=== PATIENT | male | born 1955 | race Caucasian/White ===

== ENCOUNTER → 2016-08-13 | Outpatient (CLI) | payer BC, OTHER | LOC: MW.CHUR 07:57 | PROVIDERS: ATTEND Urology | DX: N40.0 Benign prostatic hyperplasia without lower urinary tract symptoms (principal) | CPT/HCPCS: 36415; 81001; 84153 ==

== ENCOUNTER 2016-10-01 07:44 | Observation (INO) | payer BC, OTHER ==
[2016-09-30 09:19] LABS: CHLORIDE,CL 112 mmol/L (98-110); SODIUM,NA 140 mmol/L (136-146)
[~2016-10-01 07:44] MED LIST: Lactated Ringers 1,000 ML IV SCH; ceFAZolin 2 GM in Premix Bag 1 BAG IV ONE
--- NOTE | 2016-10-01 08:45 | PCM.PREANE ---
Preanesthetic Assessment - Procedure Proposed Procedure: TURP - Anesthesia/Transfusion/Family Hx Anesthesia History: Prior Anesthesia Without Reaction Family History of Anesthesia Reaction: No Transfusion History: No Prior Transfusion(s) Intubation History: Unknown - Review of Systems General: Other (urinary obstruction; obesity) Pulmonary: Other (sleep apnea) Cardiovascular: Other (hypertension - treated) Gastrointestinal: No symptoms Neurological: Other (back pain, chronic) Other: Reports: Depression, Anxiety - Physical Assessment O2 Sat by Pulse Oximetry: 95 Respiratory Rate: 16 Vital Signs: Last Vital Signs Temp 98.1 F 10/01/16 07:58 Pulse 65 10/01/16 07:58 Resp 16 10/01/16 07:58 BP 147/82 H 10/01/16 07:58 Pulse Ox 95 10/01/16 07:58 Height: 5 ft 5 in Weight: 265 lb ASA Class: 3 Mental Status: Alert & Oriented x3 Airway Class: Mallampati = 1 Dentition: Reports: Normal Dentition Thyro-Mental Finger Breadths: 3 Mouth Opening Finger Breadths: 3 ROM/Head Extension: Full Lungs: Clear to auscultation, Normal respiratory effort Cardiovascular: Regular Rate, Regular Rhythm, No Murmurs - Lab Values: Laboratory Last Values WBC 6.91 K/uL (4.0-11.0) 09/30/16 08:45 RBC 5.23 M/uL (4.50-5.90) 09/30/16 08:45 Hgb 15.2 g/dL (13.0-17.0) 09/30/16 08:45 Hct 46.6 % (38.0-50.0) 09/30/16 08:45 MCV 89.1 fL (80.0-98.0) 09/30/16 08:45 MCH 29.1 pg (27.0-32.0) 09/30/16 08:45 MCHC 32.6 g/dL (31.0-37.0) 09/30/16 08:45 RDW Std Deviation 48.9 fl (28.0-62.0) 09/30/16 08:45 RDW Coeff of Komal 15 % (11.0-15.0) 09/30/16 08:45 Plt Count 241 K/uL (150-400) 09/30/16 08:45 MPV 9.90 fL (7.40-12.00) 09/30/16 08:45 Neut % (Auto) 56.1 % (48.0-80.0) 09/30/16 08:45 Lymph % (Auto) 24.9 % (16.0-40.0) 09/30/16 08:45 Barren % (Auto) 14.3 % (0.0-15.0) 09/30/16 08:45 Eos % (Auto) 4.3 % (0.0-7.0) 09/30/16 08:45 Baso % (Auto) 0.4 % (0.0-1.5) 09/30/16 08:45 Neut # (Auto) 3.9 K/uL (1.4-5.7) 09/30/16 08:45 Lymph # (Auto) 1.7 K/uL (0.6-2.4) 09/30/16 08:45 Barren # (Auto) 1.0 K/uL (0.0-0.8) H 09/30/16 08:45 Eos # (Auto) 0.3 K/uL (0.0-0.7) 09/30/16 08:45 Baso # (Auto) 0.0 K/uL (0.0-0.1) 09/30/16 08:45 Nucleated RBC % 0.0 /100WBC 09/30/16 08:45 Nucleated RBCs # 0 K/uL 09/30/16 08:45 Sodium 140 mmol/L (136-146) 09/30/16 08:45 Potassium 4.0 mmol/L (3.5-5.1) 09/30/16 08:45 Chloride 112 mmol/L (98-110) H 09/30/16 08:45 Carbon Dioxide 19 mmol/L (21-31) L 09/30/16 08:45 BUN 14 mg/dL (6.0-23.0) 09/30/16 08:45 Creatinine 1.1 mg/dL (0.6-1.5) 09/30/16 08:45 Est Cr Clr Drug Dosing 60.57 mL/min 09/30/16 08:45 Estimated GFR (MDRD) > 60.0 ml/min 09/30/16 08:45 Glucose 113 mg/dL (60-110) H 09/30/16 08:45 Calcium 8.8 mg/dL (8.8-10.8) 09/30/16 08:45 - Allergies Allergies/Adverse Reactions: Allergies Allergy/AdvReac Type Severity Reaction Status Date / Time No Known Allergies Allergy Verified 06/27/14 11:26 - Blood Blood Available: No Product(s) Available: None - Anesthesia Plan Free Text/Narrative:: Spinal; present for interview and exam. - Acknowledgements Anesthesia Type Planned: Spinal Pt an Appropriate Candidate for the Planned Anesthesia: Yes Alternatives and Risks of Anesthesia Discussed w Pt/Guardian: Yes Pt/Guardian Understands and Agrees with Anesthesia Plan: Yes PreAnesthesia Questionnaire HEENT History: Reports: Other (See Below) Other HEENT History: wears glasses Cardiovascular History: Reports: Hypertension Respiratory History: Reports: Sleep Apnea Other Respiratory History: uses CPAP Gastrointestinal History: Reports: None Genitourinary History: Reports: BPH Other Genitourinary History: recently on antibiotic for prostate Musculoskeletal History: Reports: Arthritis, Back Pain, Chronic, Fracture Other Musculoskeletal History: hx rt arm fx and foot surgery Neurological History: Reports: None Psychiatric History: Reports: Anxiety, Depression Endocrine/Metabolic History: Reports: Obesity/BMI 30+ Hematologic History: Reports: None Immunologic History: Reports: None Oncologic (Cancer) History: Reports: None Dermatologic History: Reports: None - Past Surgical History Head Surgeries/Procedures: Reports: None HEENT Surgical History: Reports: Tonsillectomy Other Cardiovascular Surgeries/Procedures: hx cardiac cath Musculoskeletal Surgical History: Reports: Knee Replacement Other Musculoskeletal Surgeries/Procedures:: hx of wrist surgery x2, hx of Rt TKA, hx foot surgery - SUBSTANCE USE Smoking Status *Q: Former Smoker Tobacco Use Within Last Twelve Months: No Days Per Week of Alcohol Use: 7 Number of Drinks Per Day: 1 Total Drinks Per Week: 7 Recreational Drug Use History: No - HOME MEDS Home Medications: Home Meds Venlafaxine [Effexor] 75 mg PO DAILY 08/16/14 [History] amLODIPine Bes/Olmesartan Med [Bekah 10-40 MG] 1 tab PO DAILY 08/16/14 [History] Montelukast [Singulair] 10 mg PO ASDIRECTED 07/07/15 [History] Fish Oil/Borage/Flax/Om3,6,9#1 [Tolar 3-6-9 Complex Softgel] 1 tab PO DAILY 06/14 [History] Furosemide 20 mg PO ASDIRECTED PRN 09/27/16 [History] Multivitamin [Multivitamins] 1 tab PO DAILY 09/27/16 [History] - CURRENT (IN HOUSE) MEDS Current Meds: Current Medications Lactated Ringer's (Ringers, Lactated) 1,000 mls @ 100 mls/hr IV ASDIRECTED ALBINO Last Admin: 10/01/16 08:20 Dose: 100 mls/hr Discontinued Medications Cefazolin Sodium/Dextrose 2 gm (/ Premix) 50 mls @ 100 mls/hr IV ONCALL ONE Stop: 10/01/16 00:34
[2016-10-01] MEDS ORDERED: Propofol 200 MG/20 ML SDV ONE ×5 (09:14→14:03)
[2016-10-01] MEDS ORDERED: Ondansetron 4 MG/2 ML SDV ONE (09:15)
[2016-10-01] MEDS ORDERED: ePHEDrine 50 MG/ML SDV ONE ×3 (09:15→13:05)
[2016-10-01] MEDS ORDERED: Lidocaine 2% 5 ML SDV ONE ×2 (09:15→09:17)
[2016-10-01] MEDS ORDERED: fentaNYL 100 MCG/2 ML SDV ONE (09:18)
[2016-10-01] MEDS ORDERED: Midazolam 1 MG/ML 2 ML SDV ONE (09:18)
[2016-10-01] MEDS ORDERED: Phenylephrine/Normal Saline 100 MCG/ML 10 ML Syringe ONE ×2 (11:17→13:05)
[2016-10-01] MEDS ORDERED: fentaNYL 100 MCG/2 ML SDV IVPUSH PRN (12:10)
--- NOTE | 2016-10-01 12:55 | PCM.POSTAN ---
POST ANESTHESIA ASSESSMENT - MENTAL STATUS Mental Status: alert, oriented - RESPIRATORY Respiratory Status: respiratory rate WNL, airway patent, O2 saturation stable - CARDIOVASCULAR CV Status: pulse rate WNL, blood pressure stable - GASTROINTESTINAL GI Status: no symptoms - PAIN Pain Score: 0 (Spinal still sensory blocked) - POST OP HYDRATION Hydration Status: adequate & stable
[2016-10-01] MEDS ORDERED: Sodium Chloride 0.9% 0 ML ONE (13:21)
[2016-10-01] MEDS ORDERED: HYDROmorphone 2 MG/ML Syringe IVPUSH ONE (13:25)
[2016-10-01] MEDS: Nitrofurantoin Monohydrate/Macrocrystalline 100 MG Cap PO SCH ×2 (13:52→20:35)
[2016-10-01] MEDS: Belladonna Alkaloids/Opium 16.2-30 MG Supp RECTAL PRN ×2 (14:31→18:31)
[2016-10-01] MEDS ORDERED: HYDROmorphone 1 MG/ML Syringe IVPUSH PRN (14:46)
--- NOTE | 2016-10-01 16:20 | OR ---
SURGEON: Kat Plunkett M.D. DATE OF PROCEDURE: 10/01/2016 PREOPERATIVE DIAGNOSIS: Benign prostatic hyperplasia with obstructive urinary symptoms. POSTOPERATIVE DIAGNOSIS: Benign prostatic hyperplasia with obstructive urinary symptoms. OPERATION: Transurethral resection of the prostate. DESCRIPTION OF PROCEDURE: The patient was given spinal anesthesia, placed in dorsal lithotomy position, prepped and draped in sterile drapes. The cystoscope was introduced in the bladder. It showed a high bladder neck and a partially obstructive prostate. The resectoscope was then placed in. The inside of the bladder was examined when the cystoscope was in and there were no unusual findings in the bladder. Once the resectoscope was in, the resection was started with the floor of the prostatic urethra going on laterally and anteriorly. The bladder neck had to be resected to gain access that was needed. At the end of the resection, all prostatic chips were removed. Both the ureteral orifices were intact. The area of the external sphincter was intact. A 22 two-way Franks catheter with 60 mL in the balloon was left in the bladder, connected to the TUR drip. Estimated blood loss was 200 mL. The patient tolerated the procedure well and was moved to recovery room in good condition. REANNA / ELISA /[id number]
[2016-10-01] MEDS ORDERED: Acetaminophen 325 MG Tab PO PRN (18:53)
[2016-10-01] MEDS: HYDROmorphone 1 MG/ML Syringe IVPUSH PRN (19:28)
[2016-10-02] MEDS: HYDROmorphone 1 MG/ML Syringe IVPUSH PRN (01:32)
[2016-10-02 05:17] LABS: CHLORIDE,CL 108 mmol/L (98-110); SODIUM,NA 140 mmol/L (136-146)
[2016-10-02] MEDS: HYDROmorphone 2 MG/ML Syringe IVPUSH PRN ×3 (08:20→18:22)
[2016-10-02] MEDS: Furosemide 20 MG Tab PO SCH (08:48)
[2016-10-02] MEDS: Nitrofurantoin Monohydrate/Macrocrystalline 100 MG Cap PO SCH ×2 (08:48→20:08)
[2016-10-02] MEDS: Venlafaxine 37.5 MG Tab PO SCH (08:49)
[2016-10-02] MEDS: Olmesartan 20 MG Tab PO SCH (08:50)
[2016-10-02] MEDS: amLODIPine 5 MG Tab PO SCH (08:50)
[2016-10-02] MEDS: Belladonna Alkaloids/Opium 16.2-30 MG Supp RECTAL PRN ×2 (10:34→21:24)
[2016-10-02] MEDS ORDERED: Belladonna Alkaloids/Opium 16.2-30 MG Supp RECTAL ONE (13:26)
[2016-10-02] MEDS ORDERED: Furosemide 20 MG Tab PO ONE (13:36)
[2016-10-03] MEDS: Acetaminophen/HYDROcodone 325-5 MG Tab PO PRN ×3 (01:34→13:45)
[2016-10-03] MEDS: Belladonna Alkaloids/Opium 16.2-30 MG Supp RECTAL PRN (01:34)
--- NOTE | 2016-10-03 03:42 | PCM48HPAN ---
Post Anesthesia Note - EVALUATION WITHIN 48HRS OF ANESTHETIC Vital Signs in Normal Range: Yes Patient Participated in Evaluation: Yes Respiratory Function Stable: Yes Airway Patent: Yes Cardiovascular Function Stable: Yes Hydration Status Stable: Yes Pain Control Satisfactory: Yes (Taking PO and IV) Nausea and Vomiting Control Satisfactory: Yes Mental Status Recovered: Yes
[2016-10-03] MEDS: Olmesartan 20 MG Tab PO SCH (08:38)
[2016-10-03] MEDS: Furosemide 20 MG Tab PO SCH (08:39)
[2016-10-03] MEDS: Venlafaxine 37.5 MG Tab PO SCH (08:39)
[2016-10-03] MEDS: Nitrofurantoin Monohydrate/Macrocrystalline 100 MG Cap PO SCH (08:40)
[2016-10-03] MEDS: amLODIPine 5 MG Tab PO SCH (08:40)
[2016-10-03] MEDS ORDERED: Bisacodyl 10 MG Supp RECTAL ONE (11:11)
[2016-10-03 11:45] VITALS: BP 166/77
== END 2016-10-03 14:00 | disposition home or self-care (01) ==
LOC: MW.SDS 07:44 → MW.MS 13:39 → MW.SDS 19:39
PROVIDERS: ADMIT Urology; ATTEND Urology
DX: N40.1 Benign prostatic hyperplasia with lower urinary tract symptoms (principal); N41.1 Chronic prostatitis; N13.8 Other obstructive and reflux uropathy; F32.9 Major depressive disorder, single episode, unspecified; E29.1 Testicular hypofunction; E66.01 Morbid (severe) obesity due to excess calories; M17.11 Unilateral primary osteoarthritis, right knee; Z96.651 Presence of right artificial knee joint; Z79.899 Other long term (current) drug therapy; Z98.890 Other specified postprocedural states; Z87.891 Personal history of nicotine dependence
CPT/HCPCS: 36415; 52630; 80048; 85025; 88305; 96374; 96376; A9270; C1769; G0378; J1170; J2250; J2405; J3010; J7120; 00914; J2704

== ENCOUNTER 2017-07-07 08:48 | Day surgery (SDC) | payer BC, OTHER ==
[~2017-07-07 08:48] MED LIST changes: +Midazolam 1 MG/ML 2 ML SDV ONE; +Ondansetron 4 MG/2 ML SDV ONE; +Propofol 200 MG/20 ML SDV ONE; -ceFAZolin 2 GM in Premix Bag 1 BAG IV ONE; +fentaNYL 100 MCG/2 ML SDV ONE
--- NOTE | 2017-07-07 09:31 | PCM.PREANE ---
Preanesthetic Assessment - Anesthesia/Transfusion/Family Hx Anesthesia History: Prior Anesthesia Without Reaction Family History of Anesthesia Reaction: No Transfusion History: No Prior Transfusion(s) Intubation History: Unknown - Review of Systems General: No Symptoms Pulmonary: No Symptoms Cardiovascular: No Symptoms Gastrointestinal: No Symptoms Neurological: No Symptoms Other: Reports: None - Physical Assessment NPO Status Date: 07/06/17 O2 Sat by Pulse Oximetry: 97 Respiratory Rate: 16 Vital Signs: Last Vital Signs Temp 36.2 C 07/07/17 09:09 Pulse 59 L 07/07/17 09:09 Resp 16 07/07/17 09:09 BP 134/76 07/07/17 09:09 Pulse Ox 97 07/07/17 09:09 Height: 1.68 m Weight: 111.13 kg ASA Class: 2 Mental Status: Alert & Oriented x3 Airway Class: Mallampati = 1 Dentition: Reports: Normal Dentition ROM/Head Extension: Full Lungs: Clear to Auscultation, Normal Respiratory Effort Cardiovascular: Regular Rate, Regular Rhythm - Allergies Allergies/Adverse Reactions: Allergies Allergy/AdvReac Type Severity Reaction Status Date / Time hydromorphone Allergy Cough Verified 07/03/17 08:53 - Anesthesia Plan Pre-Op Medication Ordered: None - Acknowledgements Anesthesia Type Planned: General Anesthesia Pt an Appropriate Candidate for the Planned Anesthesia: Yes Alternatives and Risks of Anesthesia Discussed w Pt/Guardian: Yes Pt/Guardian Understands and Agrees with Anesthesia Plan: Yes Additional Comments: was awake with light sedation for last colonoscopy (done elsewhere), wants to be deeper asleep for this procedure. PreAnesthesia Questionnaire HEENT History: Reports: Hard of Hearing Other HEENT History: wears glasses Cardiovascular History: Reports: Hypertension Respiratory History: Reports: Sleep Apnea Other Respiratory History: uses CPAP Gastrointestinal History: Reports: Colon Polyp Genitourinary History: Reports: BPH Other Genitourinary History: recently on antibiotic for prostate Musculoskeletal History: Reports: Back Pain, Chronic, Fracture Other Musculoskeletal History: hx of fx right arm Neurological History: Reports: None Psychiatric History: Reports: Depression Endocrine/Metabolic History: Reports: Obesity/BMI 30+ Hematologic History: Reports: None Immunologic History: Reports: None Oncologic (Cancer) History: Reports: None Dermatologic History: Reports: None - Past Surgical History Head Surgeries/Procedures: Reports: None GI Surgical History: Reports: Colonoscopy Male Surgical History: Reports: TURP-Transurethral Resection of Prostate Musculoskeletal Surgical History: Reports: Knee Replacement, Other (See Below) Other Musculoskeletal Surgeries/Procedures:: hx of foot reconstruction, hx of surgery on right wrist- no hardware - SUBSTANCE USE Smoking Status *Q: Former Smoker Tobacco Use Within Last Twelve Months: No Days Per Week of Alcohol Use: 7 Number of Drinks Per Day: 1 Total Drinks Per Week: 7 Recreational Drug Use History: No - HOME MEDS Home Medications: Home Meds Venlafaxine [Effexor] 75 mg PO DAILY 08/16/14 [History] amLODIPine Bes/Olmesartan Med [Bekah 10-40 MG] 1 tab PO DAILY 08/16/14 [History] Montelukast [Singulair] 10 mg PO ASDIRECTED 07/07/15 [History] Furosemide 20 mg PO ASDIRECTED PRN 09/27/16 [History] Multivitamin [Multivitamins] 1 tab PO DAILY 09/27/16 [History] Testosterone Cypionate [Depo-Testosterone] 100 mg IM ASDIRECTED 07/03/17 [ History] - CURRENT (IN HOUSE) MEDS Current Meds: Current Medications Lactated Ringer's (Ringers, Lactated) 1,000 mls @ 125 mls/hr IV ASDIRECTED ALBINO Last Admin: 07/07/17 09:11 Dose: 125 mls/hr Discontinued Medications Fentanyl (Sublimaze) Confirm Administered Dose 100 mcg .ROUTE .STK-MED ONE Stop: 07/07/17 07:46 Lidocaine HCl (Xylocaine-Mpf 1%) Confirm Administered Dose 5 ml .ROUTE .STK-MED ONE Stop: 07/07/17 07:45 Lidocaine HCl (Xylocaine-Mpf 1%) Confirm Administered Dose 5 ml .ROUTE .STK-MED ONE Stop: 07/07/17 08:08 Midazolam HCl (Versed 1 Mg/Ml) Confirm Administered Dose 2 mg .ROUTE .STK-MED ONE Stop: 07/07/17 07:46 Ondansetron HCl (Zofran) Confirm Administered Dose 4 mg .ROUTE .STK-MED ONE Stop: 07/07/17 07:45 Propofol (Diprivan 20 Ml) Confirm Administered Dose 200 mg .ROUTE .STK-MED ONE Stop: 07/07/17 07:46 Propofol (Diprivan 20 Ml) Confirm Administered Dose 200 mg .ROUTE .STK-MED ONE Stop: 07/07/17 08:31
[2017-07-07] MEDS ORDERED: Ondansetron 4 MG Tab.DIS PO PRN (11:44)
--- NOTE | 2017-07-07 11:47 | PCM.OPNOTE ---
- General Post-Op/Procedure Note Date of Surgery/Procedure: 07/07/17 Operative Procedure(s): Colonoscopy with cold cecal polypectomy Pre Op Diagnosis: Personal history of colon polyps Post-Op Diagnosis: Cecal polyp. Sigmoid diverticulosis Anesthesia Technique: MAC (ASA II) Primary Surgeon: Sid Niño Bill Peddler: Dat Badillo Condition: Good Free Text/Narrative:: Dictation [id number] CPT CODE 20714
--- NOTE | 2017-07-07 12:03 | PCM48HPAN ---
Post Anesthesia Note - EVALUATION WITHIN 48HRS OF ANESTHETIC Vital Signs in Normal Range: Yes Patient Participated in Evaluation: Yes Respiratory Function Stable: Yes Airway Patent: Yes Cardiovascular Function Stable: Yes Hydration Status Stable: Yes Pain Control Satisfactory: Yes Nausea and Vomiting Control Satisfactory: Yes Mental Status Recovered: Yes Resp Rate: 16
--- NOTE | 2017-07-07 12:03 | PCM.POSTAN ---
POST ANESTHESIA ASSESSMENT - MENTAL STATUS Mental Status: Alert, Oriented - RESPIRATORY Respiratory Status: Respiratory Rate WNL, Airway Patent, O2 Saturation Stable - CARDIOVASCULAR CV Status: Pulse Rate WNL, Blood Pressure Stable - GASTROINTESTINAL GI Status: No Symptoms - POST OP HYDRATION Hydration Status: Adequate & Stable
[2017-07-07 12:08] VITALS: BP 129/74
--- NOTE | 2017-07-07 13:16 | OR ---
SURGEON: Sid Niño M.D. DATE OF PROCEDURE: 07/07/2017 OPERATION PERFORMED: Colonoscopy with cold cecal polypectomy. NIB FINISHER: Dr. Dat Badillo, PGY3. ANESTHESIA: MAC. ASA CLASSIFICATION: II. PREOPERATIVE DIAGNOSIS: Personal history of colon polyps. POSTOPERATIVE DIAGNOSES: 1. Cecal polyp. 2. Sigmoid diverticulosis. DESCRIPTION OF PROCEDURE: The patient was taken to the endoscopy room and positioned on the endoscopy table in the left lateral decubitus position. Time-out was called for appropriate identification of patient and procedure. Monitored anesthesia care was provided. The colonoscope was inserted into the rectum and advanced without difficulty to the cecum where the colonoscope was retroflexed to visualize the ascending colon from below. The colonoscope was then straightened. There was a small polyp present in the cecum, this was removed with multiple bites of the cold biopsy forceps. The colonoscope was then slowly withdrawn carefully visualizing the remainder of the cecum, ascending colon, hepatic flexure, transverse colon, splenic flexure, and descending colon. No other polyps were encountered. No tumors were identified. There were no angiodysplastic changes or inflammatory bowel disease. A few small scattered diverticula are noted in the sigmoid colon. The colonoscope was withdrawn to the rectum and retroflexed to visualize the anal orifice from above. Again, no tumors or polyps were seen in the rectum, and there were no acute hemorrhoidal changes. The colonoscope was then straightened, the rectum aspirated, and the colonoscope removed. The patient tolerated the procedure well and was taken to recovery room in stable condition. GEGE / ELISA /[id number]
== END 2017-07-07 12:30 | disposition home or self-care (01) ==
LOC: MW.SDS 08:48
PROVIDERS: ATTEND Surgery
DX: K57.30 Diverticulosis of large intestine without perforation or abscess without bleeding (principal); K63.89 Other specified diseases of intestine; F32.9 Major depressive disorder, single episode, unspecified; I10 Essential (primary) hypertension; R79.89 Other specified abnormal findings of blood chemistry; E66.01 Morbid (severe) obesity due to excess calories; N41.9 Inflammatory disease of prostate, unspecified; J31.0 Chronic rhinitis; L08.9 Local infection of the skin and subcutaneous tissue, unspecified; N40.1 Benign prostatic hyperplasia with lower urinary tract symptoms; R35.0 Frequency of micturition; G47.30 Sleep apnea, unspecified; Z88.5 Allergy status to narcotic agent; Z86.010 Personal history of colon polyps; Z79.899 Other long term (current) drug therapy; Z87.891 Personal history of nicotine dependence; Z68.39 Body mass index [BMI] 39.0-39.9, adult; Z99.89 Dependence on other enabling machines and devices
CPT/HCPCS: 45380; J2250; J2405; J3010; J7120; 88305; J2704

== ENCOUNTER 2019-05-21 13:46 | Inpatient (IN) | payer OTHER, MEDICARE ==
[2019-05-21] MEDS ORDERED: Sodium Chloride 0.9% 10 ML Syringe FLUSH PRN (13:49)
[2019-05-21] MEDS ORDERED: Sodium Chloride 0.9% 10 ML SDV IV PRN (13:49)
[2019-05-21] MEDS ORDERED: Sodium Chloride 0.9% 2.5 ML Syringe FLUSH PRN (13:49)
--- NOTE | 2019-05-21 14:05 | EDM.PDOC ---
ED HPI GENERAL MEDICAL PROBLEM - General Chief Complaint: Neuro Symptoms/Deficits Stated Complaint: VISION LOSS Time Seen by Provider: 05/21/19 13:58 - History of Present Illness INITIAL COMMENTS - FREE TEXT/NARRATIVE: Transient left lateral visual loss onset 1:05 pm lasting 15 to 20 minutes, there is now almost fully resolved associated with mild left frontal headache. Denies any facial numbness or peripheral weakness or numbness. History of hypertension high cholesterol denies any history of CVA or cardiac disease. Patient ambulated with steady gait to the emergency department from across the street. Patient is a practicing physician. Currently symptoms is resolved with remanence of mild left frontal headache. Nausea vomiting abdominal pain chest pain shortness of breath. Denies any dizziness or syncopal episode. Has any use of blood thinner or aspirin. Headache Pain Score (Numeric/FACES): 2 - Related Data Allergies Allergy/AdvReac Type Severity Reaction Status Date / Time hydromorphone Allergy Hives Verified 05/21/19 13:58 Home Meds: Home Meds Venlafaxine [Effexor] 75 mg PO DAILY 08/16/14 [History] amLODIPine Bes/Olmesartan Med [Bekah 10-40 MG] 1 tab PO DAILY 08/16/14 [History] Montelukast [Singulair] 10 mg PO ASDIRECTED 07/07/15 [History] Furosemide 20 mg PO ASDIRECTED PRN 09/27/16 [History] Multivitamin [Multivitamins] 1 tab PO DAILY 09/27/16 [History] Testosterone Cypionate [Depo-Testosterone] 100 mg IM ASDIRECTED 07/03/17 [ History] Past Medical History HEENT History: Reports: Hard of Hearing Other HEENT History: wears glasses Cardiovascular History: Reports: Hypertension Respiratory History: Reports: Sleep Apnea Other Respiratory History: uses CPAP Gastrointestinal History: Reports: Colon Polyp Genitourinary History: Reports: BPH Other Genitourinary History: recently on antibiotic for prostate Musculoskeletal History: Reports: Back Pain, Chronic, Fracture Other Musculoskeletal History: hx of fx right arm Neurological History: Reports: None Psychiatric History: Reports: Depression Endocrine/Metabolic History: Reports: Obesity/BMI 30+ Hematologic History: Reports: None Immunologic History: Reports: None Oncologic (Cancer) History: Reports: None Dermatologic History: Reports: None - Past Surgical History Head Surgeries/Procedures: Reports: None HEENT Surgical History: Reports: Tonsillectomy Other Cardiovascular Surgeries/Procedures: hx cardiac cath GI Surgical History: Reports: Colonoscopy Male Surgical History: Reports: TURP-Transurethral Resection of Prostate Musculoskeletal Surgical History: Reports: Knee Replacement, Other (See Below) Other Musculoskeletal Surgeries/Procedures:: hx of foot reconstruction, hx of surgery on right wrist- no hardware Social & Family History - Family History GI: Reports: Cirrhosis ED ROS GENERAL - Review of Systems Review Of Systems: See Below Constitutional: Reports: No Symptoms HEENT: Reports: Vision Change Respiratory: Reports: No Symptoms Cardiovascular: Reports: No Symptoms Endocrine: Reports: No Symptoms GI/Abdominal: Reports: No Symptoms Neurological: Reports: Headache Psychiatric: Reports: No Symptoms Immunologic: Reports: No Symptoms ED EXAM, NEURO - Physical Exam Exam: See Below Exam Limited By: No Limitations General Appearance: Alert, WD/WN, No Apparent Distress Eye Exam: Bilateral Eye: EOMI, Normal Inspection, PERRL Ears: Normal External Exam, Normal Canal, Hearing Grossly Normal, Normal TMs Nose: Normal Inspection, Normal Mucosa, No Blood Throat/Mouth: Normal Inspection, Normal Lips, Normal Teeth, Normal Gums, Normal Oropharynx, Normal Voice, No Airway Compromise Respiratory/Chest: No Respiratory Distress, Lungs Clear, Normal Breath Sounds, No Accessory Muscle Use, Chest Non-Tender Cardiovascular: Normal Peripheral Pulses, Regular Rate, Rhythm, No Edema, No Gallop, No JVD, No Murmur, No Rub GI/Abdominal: Normal Bowel Sounds, Soft, Non-Tender, No Organomegaly, No Distention, No Abnormal Bruit, No Mass Neurological: Alert, Normal Mood/Affect, Normal Dorsiflexion, CN II-XII Intact, Normal Plantar Flexion, Normal Gait, Normal Reflexes, No Motor/Sensory Deficits , Oriented x 3, Other (NIH stroke scale 0) Back Exam: Normal Inspection, Full Range of Motion, NT Extremities: Normal Inspection, Normal Range of Motion, Non-Tender, No Pedal Edema, Normal Capillary Refill Psychiatric: Normal Affect, Normal Mood Skin Exam: Warm, Dry, Intact, Normal Color, No Rash EKG INTERPRETATION EKG Date: 05/21/19 Rhythm: NSR [place]: Normal P-Wave: Present QRS: Normal ST-T: Normal Course - Vital Signs Last Recorded V/S: Last Vital Signs Temp 97.2 F 05/21/19 13:58 Pulse 77 05/21/19 13:58 Resp 16 05/21/19 13:58 BP 153/88 H 05/21/19 13:58 Pulse Ox 96 05/21/19 13:58 - Orders/Labs/Meds Orders: Active Orders 24 hr Category Date Time Status Assess Neurological Status [RC] ASDIRECTED Care 05/21/19 13:49 Active Bedrest [RC] ASDIRECTED Care 05/21/19 13:49 Active Cardiac Monitoring [RC] . DIRECTED Care 05/21/19 13:49 Active EKG Documentation Completion [RC] STAT Care 05/21/19 13:49 Active Height and Weight [RC] UPON Care 05/21/19 13:49 Active Initiate Acute Stroke Protocol [RC] STAT Care 05/21/19 13:49 Active NIH Stroke Scale [RC] ASDIRECTED Care 05/21/19 13:49 Active Nursing Bedside Swallow Screen [RC] ASDIRECTED Care 05/21/19 13:49 Active Oxygen Therapy [RC] ASDIRECTED Care 05/21/19 13:49 Active Stroke Education, General [RC] Click to Edit Care 05/21/19 13:49 Active Vital Signs [RC] Q15M Care 05/21/19 13:49 Active Chest 1V Frontal [CR] Stat Exams 05/21/19 13:49 Ordered COMPREHENSIVE METABOLIC PN,CMP [CHEM] Stat Lab 05/21/19 13:55 Received TROPONIN I [CHEM] Stat Lab 05/21/19 13:55 Received TSH [CHEM] Stat Lab 05/21/19 13:55 Received UA RFX MAN AND CULT IF INDIC [URIN] Stat Lab 05/21/19 13:49 Ordered Sodium Chloride 0.9% [Normal Saline] Med 05/21/19 13:49 Active 10 ml IV ASDIRECTED PRN Sodium Chloride 0.9% [Saline Flush] Med 05/21/19 13:49 Active 10 ml FLUSH ASDIRECTED PRN Sodium Chloride 0.9% [Saline Flush] Med 05/21/19 13:49 Active 2.5 ml FLUSH ASDIRECTED PRN Peripheral IV Insertion Adult [OM.PC] Stat Oth 05/21/19 13:49 Ordered Peripheral IV Insertion Adult [OM.PC] Stat Oth 05/21/19 13:49 Ordered Medication Orders Sodium Chloride (Saline Flush) 10 ml FLUSH ASDIRECTED PRN PRN Reason: Keep Vein Open Sodium Chloride (Saline Flush) 2.5 ml FLUSH ASDIRECTED PRN PRN Reason: Keep Vein Open Sodium Chloride (Normal Saline) 10 ml IV ASDIRECTED PRN PRN Reason: IV Use Labs: Laboratory Tests 05/21/19 05/21/19 Range/Units 13:55 13:55 WBC 7.80 (4.0-11.0) K/uL RBC 5.39 (4.50-5.90) M/uL Hgb 16.0 (13.0-17.0) g/dL Hct 46.4 (38.0-50.0) % MCV 86.1 (80.0-98.0) fL MCH 29.7 (27.0-32.0) pg MCHC 34.5 (31.0-37.0) g/dL RDW Std Deviation 43.7 (28.0-62.0) fl RDW Coeff of Komal 14 (11.0-15.0) % Plt Count 246 (150-400) K/uL MPV 10.40 (7.40-12.00) fL Neut % (Auto) 57.0 (48.0-80.0) % Lymph % (Auto) 26.3 (16.0-40.0) % [place] % (Auto) 12.1 (0.0-15.0) % Eos % (Auto) 4.2 (0.0-7.0) % Baso % (Auto) 0.4 (0.0-1.5) % Neut # (Auto) 4.5 (1.4-5.7) K/uL Lymph # (Auto) 2.1 (0.6-2.4) K/uL [place] # (Auto) 0.9 H (0.0-0.8) K/uL Eos # (Auto) 0.3 (0.0-0.7) K/uL Baso # (Auto) 0.0 (0.0-0.1) K/uL Nucleated RBC % 0.0 /100WBC Nucleated RBCs # 0 K/uL INR 1.04 APTT 27.3 (18.6-31.3) SEC Meds: Medications Generic Name Dose Route Start Last Admin Trade Name Freq PRN Reason Stop Dose Admin Sodium Chloride 10 ml 05/21/19 13:49 Saline Flush FLUSH ASDIRECTED PRN Keep Vein Open Sodium Chloride 2.5 ml 05/21/19 13:49 Saline Flush FLUSH ASDIRECTED PRN Keep Vein Open Sodium Chloride 10 ml 05/21/19 13:49 Normal Saline IV ASDIRECTED PRN IV Use - Radiology Interpretation Free Text/Narrative:: Paralytics was not consider because patient symptoms resolved and NIH stroke scale was 0 Departure - Departure Time of Disposition: 14:31 Disposition: Admitted As Inpatient 65 Condition: Good Clinical Impression: Transient ischemic attack (TIA) - Discharge Information Referrals: Ross Villalobos [facility] [Primary Care Provider] - Forms: ED Department Discharge Sepsis Event Note - Focused Exam Vital Signs: Vital Signs Temp Pulse Resp BP Pulse Ox 05/21/19 13:58 97.2 F 77 16 153/88 H 96 Date Exam was Performed: 05/21/19 Time Exam was Performed: 14:30
--- NOTE | 2019-05-21 14:27 | CT ---
Head CT Technique: Multiple axial sections through the brain were obtained. Intravenous contrast was not utilized. Comparison: No prior intracranial imaging is available. Findings: Ventricles along with basal cisterns and sulci over the convexities appear within normal limits for the patient's age. No abnormal parenchymal densities are seen. No evidence of intracranial hemorrhage. No midline shift or mass effect is seen. Bone window settings were reviewed which shows mild mucosal thickening within the ethmoid and left maxillary sinus. Mastoid sinuses appear clear. No acute calvarial abnormality is seen. Impression: 1. Sinus findings most likely due to chronic sinusitis. 2. No acute intracranial abnormality is appreciated. Diagnostic code #2 Study was dictated in [place] Standard Time
[2019-05-21] MEDS ORDERED: Aspirin 81 MG Tab.Chew PO ONE (14:30)
[2019-05-21 14:51] LABS: CHLORIDE,CL 103 mmol/L (98-107); GLUCOSE RANDOM 105 mg/dL (74-106); POTASSIUM,K 3.8 mmol/L (3.5-5.1); SODIUM,NA 141 mmol/L (136-148)
--- NOTE | 2019-05-21 14:53 | CR ---
Chest: Portable view of the chest was obtained. Comparison: No prior chest imaging. Slight is density is noted within the left base most likely due to atelectasis although difficult to exclude a nodule. Lungs otherwise are clear. Heart size and mediastinum are normal. Impression: 1. Questionable nodular density off the left cardiac apex. This is most likely due to atelectasis although noncontrast chest CT suggested to completely exclude the possibility of pulmonary mass. 2. Nothing acute is otherwise seen on portable chest x-ray. Diagnostic code #9 Study was dictated in [place] Standard Time
[2019-05-21] MEDS ORDERED: Ondansetron 4 MG/2 ML SDV IVPUSH PRN (15:07)
[2019-05-21 15:14] LABS: BLOOD UREA NITROGEN,BUN 26 mg/dL (7.0-18.0)
--- NOTE | 2019-05-21 15:44 | PCM.CONS ---
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 He was finishing up with the patient at 1:05 PM when he developed left-sided visual loss in both eyes, homonymous hemianopsia. This lasted about 15 minutes was followed by a posterior right-sided headache. He notes the left visual field is not quite as clear as the right side, now which is about an hour and 15 minutes after symptom onset. He denies any numbness or tingling or weakness on one side of the body other. No chest pain or shortness of breath. He's had fatigue in the last 2 weeks as well as intermittent vertigo lasting a few seconds. Remote tobacco use, quit in the 80s. No family history of stroke or heart attack. No personal history of coronary artery disease or peripheral artery disease Headache Pain Score (Numeric/FACES): 2 - Related Data Allergies/Adverse Reactions: Allergies Allergy/AdvReac Type Severity Reaction Status Date / Time hydromorphone Allergy Hives Verified 05/21/19 13:58 Home Medications: Home Meds Venlafaxine [Effexor] 75 mg PO DAILY 08/16/14 [History] amLODIPine Bes/Olmesartan Med [Bekah 10-40 MG] 1 tab PO DAILY 08/16/14 [History] Montelukast [Singulair] 10 mg PO ASDIRECTED 07/07/15 [History] Furosemide 20 mg PO ASDIRECTED PRN 09/27/16 [History] Multivitamin [Multivitamins] 1 tab PO DAILY 09/27/16 [History] Testosterone Cypionate [Depo-Testosterone] 100 mg IM ASDIRECTED 07/03/17 [ History] Past Medical History HEENT History: Reports: Hard of Hearing Other HEENT History: wears glasses Cardiovascular History: Reports: Hypertension Respiratory History: Reports: Sleep Apnea Other Respiratory History: uses CPAP Gastrointestinal History: Reports: Colon Polyp Genitourinary History: Reports: BPH Other Genitourinary History: recently on antibiotic for prostate Musculoskeletal History: Reports: Back Pain, Chronic, Fracture Other Musculoskeletal History: hx of fx right arm Neurological History: Reports: None Psychiatric History: Reports: Depression Endocrine/Metabolic History: Reports: Obesity/BMI 30+ Hematologic History: Reports: None Immunologic History: Reports: None Oncologic (Cancer) History: Reports: None Dermatologic History: Reports: None - Past Surgical History Head Surgeries/Procedures: Reports: None HEENT Surgical History: Reports: Tonsillectomy Other Cardiovascular Surgeries/Procedures: hx cardiac cath GI Surgical History: Reports: Colonoscopy Male Surgical History: Reports: TURP-Transurethral Resection of Prostate Musculoskeletal Surgical History: Reports: Knee Replacement, Other (See Below) Other Musculoskeletal Surgeries/Procedures:: hx of foot reconstruction, hx of surgery on right wrist- no hardware Social & Family History - Family History Family Medical History: Noncontributory GI: Reports: Cirrhosis - Tobacco Use Smoking Status *Q: Never Smoker - Recreational Drug Use Recreational Drug Use: No H&P Review of Systems - Review of Systems: Review Of Systems: Comprehensive ROS is negative, except as noted in HPI. Exam - Exam Exam: See Below - Vital Signs Vital Signs: Last Vital Signs Temp 36.2 C 05/21/19 13:58 Pulse 77 05/21/19 13:58 Resp 16 05/21/19 13:58 BP 153/88 H 05/21/19 13:58 Pulse Ox 96 05/21/19 13:58 Weight: 108 kg - Exam Physical Exam Comments:: Constitutional: No acute distress Psychiatric: Mood/Affect: normal/appropriate Neurological: Mental Status: General: Normal activity, good hygiene, appropriate appearance. Level of consciousness: Awake, alert. Orientation: Oriented to person, place, time and situation. Concentration/Attention Span: Normal. Comprehension/Praxis: Able to perform a three step command. Fund of Knowledge/memory: Adequate recent and remote recall. Language: Fluent and articulate without evidence of aphasia or dysarthria. Thought Content: Normal. Insight/Judgement: Normal. Cranial Nerves: Pupils equally round and reactive to light. Visual cadet full to confrontation. Gaze conjugate, EOMI. Sensation intact and symmetric to light touch. Facial strength is full and symmetric. Palate elevates symmetrically. Normal shrug bilaterally. Tongue protrudes midline Motor: Normal tone in all groups. No drift. Power is 5/5 throughout proximal and distal muscles. Sensation: Sensation is intact to pinprick, vibratory sense and proprioception. Deep tendon reflexes: Normoactive throughout. Plantar responses are flexor bilaterally. Coordination: Finger to nose, heel to coto and rapid alternating movements are intact. Gait: Impaired tandem Eyes: non icteric, Mouth: moist mucus membranes Cardiovascular: RRR Respiratory: clear lungs - Patient Data Lab Results Last 24 hrs: Laboratory Results - last 24 hr 05/21/19 05/21/19 05/21/19 Range/Units 13:55 13:55 13:55 WBC 7.80 (4.0-11.0) K/uL RBC 5.39 (4.50-5.90) M/uL Hgb 16.0 (13.0-17.0) g/dL Hct 46.4 (38.0-50.0) % MCV 86.1 (80.0-98.0) fL MCH 29.7 (27.0-32.0) pg MCHC 34.5 (31.0-37.0) g/dL RDW Std Deviation 43.7 (28.0-62.0) fl RDW Coeff of Komal 14 (11.0-15.0) % Plt Count 246 (150-400) K/uL MPV 10.40 (7.40-12.00) fL Neut % (Auto) 57.0 (48.0-80.0) % Lymph % (Auto) 26.3 (16.0-40.0) % [place] % (Auto) 12.1 (0.0-15.0) % Eos % (Auto) 4.2 (0.0-7.0) % Baso % (Auto) 0.4 (0.0-1.5) % Neut # (Auto) 4.5 (1.4-5.7) K/uL Lymph # (Auto) 2.1 (0.6-2.4) K/uL [place] # (Auto) 0.9 H (0.0-0.8) K/uL Eos # (Auto) 0.3 (0.0-0.7) K/uL Baso # (Auto) 0.0 (0.0-0.1) K/uL Nucleated RBC % 0.0 /100WBC Nucleated RBCs # 0 K/uL INR 1.04 APTT 27.3 (18.6-31.3) SEC Sodium 141 (136-148) mmol/L Potassium 3.8 (3.5-5.1) mmol/L Chloride 103 (98-107) mmol/L Carbon Dioxide 24.0 (21.0-32.0) mmol/L BUN 26 H (7.0-18.0) mg/dL Creatinine 1.2 (0.8-1.3) mg/dL Est Cr Clr Drug Dosing 53.39 mL/min Estimated GFR (MDRD) > 60.0 ml/min Glucose 105 (74-106) mg/dL Calcium 9.7 (8.5-10.1) mg/dL Total Bilirubin 0.5 (0.2-1.0) mg/dL AST 48 H (15-37) IU/L ALT 72 H (14-63) IU/L Alkaline Phosphatase 52 (46-116) U/L Troponin I < 0.050 (0.000-0.056) ng/mL Total Protein 7.8 (6.4-8.2) g/dL Albumin 4.1 (3.4-5.0) g/dL Globulin 3.7 (2.6-4.0) g/dL Albumin/Globulin Ratio 1.1 (0.9-1.6) TSH 3rd Generation 1.07 (0.36-3.74) uIU/mL Result Diagrams: 05/21/19 13:55 05/21/19 13:55 Imaging Impressions Last 24 hrs: CT brain normal Sepsis Event Note - Evaluation Sepsis Screening Result: No Definite Risk - Focused Exam Vital Signs: Vital Signs Temp Pulse Resp BP Pulse Ox 05/21/19 13:58 36.2 C 77 16 153/88 H 96 Date Exam was Performed: 05/21/19 Time Exam was Performed: 15:41 Consult PN Assessment/Plan Procedures: Procedures ASSAY OF CREATININE (08/17/14) ASSAY OF FREE TESTOSTERONE (03/03/17) ASSAY OF FREE THYROXINE (03/27/16) ASSAY OF MAGNESIUM (03/27/16) ASSAY OF PSA TOTAL (06/24/18) ASSAY OF TOTAL TESTOSTERONE (03/03/17) ASSAY OF UREA NITROGEN (08/17/14) ASSAY THYROID STIM HORMONE (03/27/16) CARDIOVASCULAR STRESS TEST (05/13/16) CHEST X-RAY 2VW FRONTAL&LATL (06/21/15) CO/MEMBANE DIFFUSE CAPACITY (05/08/16) COLONOSCOPY AND BIOPSY (07/07/17) COMPLETE CBC W/AUTO DIFF WBC (10/01/16) COMPREHEN METABOLIC PANEL (03/27/16) CT ABD & PELV 1/> REGNS (08/17/14) CT ABD & PELV W/CONTRAST (07/01/18) ELECTROCARDIOGRAM TRACING (06/21/15) EMERGENCY DEPT VISIT (08/16/14) EVALUATION OF WHEEZING (05/08/16) HT MUSCLE IMAGE SPECT SING (05/13/16) HYDRATE IV INFUSION ADD-ON (08/16/14) LIPID PANEL (03/27/16) METABOLIC PANEL TOTAL CA (06/24/18) MRI JNT OF LWR EXTRE W/O DYE (06/02/15) PROTHROMBIN TIME (06/22/15) PT EVALUATION (07/21/15) PULM FUNCTION TEST BY GAS (05/08/16) REMOVE PROSTATE REGROWTH (10/01/16) ROUTINE VENIPUNCTURE (06/24/18) TB TEST CELL IMMUN MEASURE (04/18/17) THER/PROPH/DIAG INJ IV PUSH (10/01/16) THERAPEUTIC EXERCISES (08/07/15) TISSUE EXAM BY PATHOLOGIST (10/01/16) TTE W/DOPPLER COMPLETE (03/29/16) TX/PRO/DX INJ NEW DRUG ADDON (08/16/14) TX/PRO/DX INJ SAME DRUG TAR HEATER (10/01/16) URINALYSIS AUTO W/SCOPE (06/24/18) US COMPL JOINT R-T W/IMG (05/03/16) VASOPNEUMATIC DEVICE THERAPY (08/07/15) X-RAY EXAM KNEE 4 OR MORE (03/28/15) X-RAY EXAM OF FOREARM (04/18/16) X-RAY EXAM OF HAND (04/18/16) X-RAY EXAM OF KNEE 3 (07/20/15) (1) Transient ischemic attack (TIA) SNOMED Code(s): 175980981 Code(s): G45.9 - TRANSIENT CEREBRAL ISCHEMIC ATTACK, UNSPECIFIED Current Visit: Yes Assessment:: Transient left homonymous hemianopsia: Likely TIA Recommendations MRI brain w and without contrast MRA head w/o contrast MRA neck with contrast Telemetry permissive HTN ASA 81 mg Statin TTE Lipids, A1c Problem List Initiated/Reviewed/Updated: Yes
[2019-05-21 15:50] LABS: HEMOGLOBIN A1C 5.9 % (4.5-6.2)
[2019-05-21] MEDS ORDERED: Gadobenate Dimeglumine 529 MG/ML 20 ML SDV IVPUSH STA (16:15)
--- NOTE | 2019-05-21 16:28 | PCM.HP.2 ---
H&P History of Present Illness - General Date of Service: 05/21/19 Admit Problem/Dx: Admission Diagnosis/Problem Admission Diagnosis/Problem TIA, Transient ischemic attack Source of Information: Patient History Limitations: Reports: No Limitations - History of Present Illness Initial Comments - Free Text/Narative: This 64 year old male with pmh of HTN, dyslipidemia, PAUL with CPAP presented to the ED with complaints of left lateral vision loss that started around 1:05 pm this afternoon, lasted approximately 15-20 minutes then noted a frontal headache. No other neurological deficits. He denies chest pain sob or palpitations. He denies acute neck pain, has been dealing with chronic neck pain and is being worked up for stenosis. He denies recently illness or fevers. No cough or sinus congestion. He denies abdominal pain. He denies tobacco use, occasional alcohol use and no recreational drug use. No history of CAD or CVA and no DM. Does have history of Migraines, but not for at least 20 years. In the ED labwork WNL. Head CT obtained which showed chronic sinusitis, no hemorrhage or mass. BP 153/88 HR 70s. CXR negative. EKG SR no arrhythmia noted. Dr Serrano consulted in the ED, recommended admission and MRI. Headache Pain Score (Numeric/FACES): 2 - Related Data Allergies/Adverse Reactions: Allergies Allergy/AdvReac Type Severity Reaction Status Date / Time hydromorphone Allergy Hives Verified 05/21/19 13:58 Home Medications: Home Meds Venlafaxine [Effexor] 75 mg PO DAILY 08/16/14 [History] amLODIPine Bes/Olmesartan Med [Bekah 10-40 MG] 1 tab PO DAILY 08/16/14 [History] Montelukast [Singulair] 10 mg PO ASDIRECTED 07/07/15 [History] Furosemide 20 mg PO ASDIRECTED PRN 09/27/16 [History] Multivitamin [Multivitamins] 1 tab PO DAILY 09/27/16 [History] Testosterone Cypionate [Depo-Testosterone] 100 mg IM ASDIRECTED 07/03/17 [ History] Past Medical History HEENT History: Reports: Hard of Hearing Other HEENT History: wears glasses Cardiovascular History: Reports: Hypertension. Denies: Afib, Blood Clots/VTE/ DVT, CAD Respiratory History: Reports: Sleep Apnea Other Respiratory History: uses CPAP Gastrointestinal History: Reports: Colon Polyp. Denies: GERD Genitourinary History: Reports: BPH Other Genitourinary History: recently on antibiotic for prostate Musculoskeletal History: Reports: Back Pain, Chronic, Fracture Other Musculoskeletal History: hx of fx right arm Neurological History: Reports: None Psychiatric History: Reports: Depression Endocrine/Metabolic History: Reports: Obesity/BMI 30+ Hematologic History: Reports: None Immunologic History: Reports: None Oncologic (Cancer) History: Reports: None Dermatologic History: Reports: None - Past Surgical History Head Surgeries/Procedures: Reports: None HEENT Surgical History: Reports: Tonsillectomy Other Cardiovascular Surgeries/Procedures: hx cardiac cath GI Surgical History: Reports: Colonoscopy Male Surgical History: Reports: TURP-Transurethral Resection of Prostate Musculoskeletal Surgical History: Reports: Knee Replacement, Other (See Below) Other Musculoskeletal Surgeries/Procedures:: hx of foot reconstruction, hx of surgery on right wrist- no hardware Social & Family History - Family History Family Medical History: Noncontributory GI: Reports: Cirrhosis - Tobacco Use Smoking Status *Q: Never Smoker - Alcohol Use Alcohol Use Frequency: Socially - Recreational Drug Use Recreational Drug Use: No - Living Situation & Occupation Living situation: Reports: Occupation: Employed H&P Review of Systems - Review of Systems: Review Of Systems: See Below General: Reports: No Symptoms. Denies: Fever, Chills, Malaise HEENT: Reports: Visual Changes (left lateral vision isn't as crips, but has improved since arriving.) Pulmonary: Reports: No Symptoms. Denies: Shortness of Breath Cardiovascular: Reports: No Symptoms. Denies: Chest Pain Gastrointestinal: Reports: Nausea. Denies: Abdominal Pain, Vomiting Genitourinary: Reports: No Symptoms. Denies: Dysuria, Frequency, Burning Skin: Reports: No Symptoms Psychiatric: Reports: No Symptoms Neurological: Reports: No Symptoms Hematologic/Lymphatic: Reports: No Symptoms Immunologic: Reports: No Symptoms Exam - Exam Exam: See Below - Vital Signs Vital Signs: Last Vital Signs Temp 97.2 F 05/21/19 13:58 Pulse 77 05/21/19 13:58 Resp 16 05/21/19 13:58 BP 153/88 H 05/21/19 13:58 Pulse Ox 96 05/21/19 13:58 Weight: 108 kg - Exam General: Alert, Oriented, Cooperative HEENT: Mucosa Moist & [place], Posterior Pharynx Clear, Pupils Equal Neck: Supple, Trachea Midline Lungs: Clear to Auscultation, Normal Respiratory Effort Cardiovascular: Regular Rate, Regular Rhythm GI/Abdominal Exam: Normal Bowel Sounds, Soft, Non-Tender Extremities: Normal Inspection, Normal Range of Motion, Non-Tender, No Pedal Edema Neuro Extensive - Mental Status: Alert, Oriented x3 Neuro Extensive - Motor, Sensory, Reflexes: CN II-XII Intact Psychiatric: Alert, Normal Affect, Normal Mood - Patient Data Lab Results Last 24 hrs: Laboratory Results - last 24 hr 05/21/19 05/21/19 05/21/19 Range/Units 13:55 13:55 13:55 WBC 7.80 (4.0-11.0) K/uL RBC 5.39 (4.50-5.90) M/uL Hgb 16.0 (13.0-17.0) g/dL Hct 46.4 (38.0-50.0) % MCV 86.1 (80.0-98.0) fL MCH 29.7 (27.0-32.0) pg MCHC 34.5 (31.0-37.0) g/dL RDW Std Deviation 43.7 (28.0-62.0) fl RDW Coeff of Komal 14 (11.0-15.0) % Plt Count 246 (150-400) K/uL MPV 10.40 (7.40-12.00) fL Neut % (Auto) 57.0 (48.0-80.0) % Lymph % (Auto) 26.3 (16.0-40.0) % [place] % (Auto) 12.1 (0.0-15.0) % Eos % (Auto) 4.2 (0.0-7.0) % Baso % (Auto) 0.4 (0.0-1.5) % Neut # (Auto) 4.5 (1.4-5.7) K/uL Lymph # (Auto) 2.1 (0.6-2.4) K/uL [place] # (Auto) 0.9 H (0.0-0.8) K/uL Eos # (Auto) 0.3 (0.0-0.7) K/uL Baso # (Auto) 0.0 (0.0-0.1) K/uL Nucleated RBC % 0.0 /100WBC Nucleated RBCs # 0 K/uL INR 1.04 APTT 27.3 (18.6-31.3) SEC Sodium 141 (136-148) mmol/L Potassium 3.8 (3.5-5.1) mmol/L Chloride 103 (98-107) mmol/L Carbon Dioxide 24.0 (21.0-32.0) mmol/L BUN 26 H (7.0-18.0) mg/dL Creatinine 1.2 (0.8-1.3) mg/dL Est Cr Clr Drug Dosing 53.39 mL/min Estimated GFR (MDRD) > 60.0 ml/min Glucose 105 (74-106) mg/dL Hemoglobin A1c (4.5-6.2) % Calcium 9.7 (8.5-10.1) mg/dL Total Bilirubin 0.5 (0.2-1.0) mg/dL AST 48 H (15-37) IU/L ALT 72 H (14-63) IU/L Alkaline Phosphatase 52 (46-116) U/L Troponin I < 0.050 (0.000-0.056) ng/mL Total Protein 7.8 (6.4-8.2) g/dL Albumin 4.1 (3.4-5.0) g/dL Globulin 3.7 (2.6-4.0) g/dL Albumin/Globulin Ratio 1.1 (0.9-1.6) TSH 3rd Generation 1.07 (0.36-3.74) uIU/mL 05/21/19 Range/Units 13:55 WBC (4.0-11.0) K/uL RBC (4.50-5.90) M/uL Hgb (13.0-17.0) g/dL Hct (38.0-50.0) % MCV (80.0-98.0) fL MCH (27.0-32.0) pg MCHC (31.0-37.0) g/dL RDW Std Deviation (28.0-62.0) fl RDW Coeff of Komal (11.0-15.0) % Plt Count (150-400) K/uL MPV (7.40-12.00) fL Neut % (Auto) (48.0-80.0) % Lymph % (Auto) (16.0-40.0) % [place] % (Auto) (0.0-15.0) % Eos % (Auto) (0.0-7.0) % Baso % (Auto) (0.0-1.5) % Neut # (Auto) (1.4-5.7) K/uL Lymph # (Auto) (0.6-2.4) K/uL [place] # (Auto) (0.0-0.8) K/uL Eos # (Auto) (0.0-0.7) K/uL Baso # (Auto) (0.0-0.1) K/uL Nucleated RBC % /100WBC Nucleated RBCs # K/uL INR APTT (18.6-31.3) SEC Sodium (136-148) mmol/L Potassium (3.5-5.1) mmol/L Chloride (98-107) mmol/L Carbon Dioxide (21.0-32.0) mmol/L BUN (7.0-18.0) mg/dL Creatinine (0.8-1.3) mg/dL Est Cr Clr Drug Dosing mL/min Estimated GFR (MDRD) ml/min Glucose (74-106) mg/dL Hemoglobin A1c 5.9 (4.5-6.2) % Calcium (8.5-10.1) mg/dL Total Bilirubin (0.2-1.0) mg/dL AST (15-37) IU/L ALT (14-63) IU/L Alkaline Phosphatase (46-116) U/L Troponin I (0.000-0.056) ng/mL Total Protein (6.4-8.2) g/dL Albumin (3.4-5.0) g/dL Globulin (2.6-4.0) g/dL Albumin/Globulin Ratio (0.9-1.6) TSH 3rd Generation (0.36-3.74) uIU/mL Result Diagrams: 05/21/19 13:55 05/21/19 13:55 Sepsis Event Note - Evaluation Sepsis Screening Result: No Definite Risk - Focused Exam Vital Signs: Vital Signs Temp Pulse Resp BP Pulse Ox 05/21/19 13:58 97.2 F 77 16 153/88 H 96 Date Exam was Performed: 05/21/19 Time Exam was Performed: 16:20 - Problem List (1) Transient ischemic attack (TIA) SNOMED Code(s): 533609542 ICD Code: G45.9 - TRANSIENT CEREBRAL ISCHEMIC ATTACK, UNSPECIFIED Status: Acute Current Visit: Yes (2) HTN (hypertension) SNOMED Code(s): 15578158 ICD Code: I10 - ESSENTIAL (PRIMARY) HYPERTENSION Status: Chronic Current Visit: Yes Qualifiers: Hypertension type: essential hypertension Qualified Code(s): I10 - Essential (primary) hypertension (3) Dyslipidemia SNOMED Code(s): 831160827 ICD Code: E78.5 - HYPERLIPIDEMIA, UNSPECIFIED Status: Chronic Current Visit: Yes Problem List Initiated/Reviewed/Updated: Yes Orders Last 24hrs: Active Orders 24 hr Category Date Time Status Admission Status [Patient Status] [ADT] Stat ADT 05/21/19 15:25 Active Assess Neurological Status [RC] ASDIRECTED Care 05/21/19 13:49 Active Bedrest [RC] ASDIRECTED Care 05/21/19 13:49 Active Cardiac Monitoring [RC] . DIRECTED Care 05/21/19 13:49 Active EKG Documentation Completion [RC] STAT Care 05/21/19 13:49 Active Height and Weight [RC] UPON Care 05/21/19 13:49 Active Initiate Acute Stroke Protocol [RC] STAT Care 05/21/19 13:49 Active NIH Stroke Scale [RC] ASDIRECTED Care 05/21/19 13:49 Active Nursing Bedside Swallow Screen [RC] ASDIRECTED Care 05/21/19 13:49 Active Oxygen Therapy [RC] ASDIRECTED Care 05/21/19 13:49 Active Stroke Education, General [RC] Click to Edit Care 05/21/19 13:49 Active Telemetry Monitoring [Cardiac Monitoring] [RC] . Care 05/21/19 16:07 Ordered DIRECTED Vital Signs [RC] Q15M Care 05/21/19 13:49 Active Ang Head wo Cont [MR] Stat Exams 05/21/19 15:07 Ordered Ang Neck w Cont [MR] Stat Exams 05/21/19 15:07 Ordered Brain w wo Cont [MR] Stat Exams 05/21/19 15:07 Ordered Echo Comp wo Cont [US] Stat Exams 05/21/19 15:21 Ordered LIPID PANEL [CHEM] AM Lab 05/22/19 05:11 Ordered UA RFX MAN AND CULT IF INDIC [URIN] Stat Lab 05/21/19 13:49 Ordered Aspirin Med 05/22/19 09:00 Ordered 81 mg PO DAILY Ondansetron [Zofran] Med 05/21/19 15:07 Active 4 mg IVPUSH Q4H PRN Rosuvastatin [Crestor] Med 05/21/19 21:00 Ordered 10 mg PO BEDTIME Sodium Chloride 0.9% [Normal Saline] Med 05/21/19 13:49 Active 10 ml IV ASDIRECTED PRN Sodium Chloride 0.9% [Saline Flush] Med 05/21/19 13:49 Active 10 ml FLUSH ASDIRECTED PRN Sodium Chloride 0.9% [Saline Flush] Med 05/21/19 13:49 Active 2.5 ml FLUSH ASDIRECTED PRN Peripheral IV Insertion Adult [OM.PC] Stat Oth 05/21/19 13:49 Ordered Peripheral IV Insertion Adult [OM.PC] Stat Oth 05/21/19 13:49 Ordered Medication Orders Aspirin (Aspirin) 81 mg PO DAILY ALBINO Ondansetron HCl (Zofran) 4 mg IVPUSH Q4H PRN PRN Reason: Nausea Rosuvastatin Calcium (Crestor) 10 mg PO BEDTIME ALBINO Sodium Chloride (Saline Flush) 10 ml FLUSH ASDIRECTED PRN PRN Reason: Keep Vein Open Sodium Chloride (Saline Flush) 2.5 ml FLUSH ASDIRECTED PRN PRN Reason: Keep Vein Open Sodium Chloride (Normal Saline) 10 ml IV ASDIRECTED PRN PRN Reason: IV Use Assessment/Plan Comment:: This 64 year old male admitted with suspected TIA 1. TIA: Obtained MRI brain, MRA head and neck. ECHO. Place on Statin, patient requests low dose Crestor due to history of myalgias. Place Zio patch upon discharge per Dr Serrano recommendations. 2. HTN: Allow for permissive HTN for now. Restart BP medication in am. VTE prophylaxis: Lovenox. Dispo: 1-2 days - Mortality Measure Prognosis:: Good
[2019-05-21] MEDS ORDERED: Melatonin 3 MG Tab PO PRN (17:38)
--- NOTE | 2019-05-21 17:54 | MR ---
INDICATION: Transient ischemic attack. TECHNIQUE: MRI brain: Multiplanar multisequence noncontrast MR images were acquired. MRA head: 3D [id number] images were acquired. MRA neck: 2D and 3D [id number] images were acquired. COMPARISON: CT brain 05/21/2019. FINDINGS: MRI brain: Artifact significantly degrades the susceptibility weighted sequence and moderately degrades the sagittal T1 sequence. The ventricles and sulci within normal limits for patient age. No mass effect or midline shift. Few small foci of T2 FLAIR hyperintensity in the supratentorial white matter, nonspecific. No diffusion restriction to suggest acute infarction. No recent intracranial hemorrhage or pathologic extra-axial fluid collection. The globes are symmetric in size. Mild mucosal thickening in the left maxillary and left ethmoid sinuses. T2 hyperintensity within the left petrous apex is without calvarial expansion and may represent trapped fluid. The mastoid air cells are clear. MRA head: Motion artifact degrades image quality. The visualized intracranial, middle cerebral, and anterior cerebral arteries are patent without significant narrowing. Dominant left vertebral artery with hypoplastic right vertebral artery functionally terminating near the skullbase. No significant narrowing of the vertebral, basilar, or posterior cerebral arteries. No intracranial aneurysm MRA neck: Noncontrast technique limits evaluation. Artifact degrades the [id number] sequences. The left vertebral artery is dominant. The right vertebral artery is hypoplastic, functionally terminating near the skullbase. No significant narrowing of the common carotid, internal carotid, or vertebral arteries. IMPRESSION: 1. No acute infarction, mass effect, or recent intracranial hemorrhage. 2. Few small T2 FLAIR hyperintensities in the supratentorial white matter are nonspecific, though differential considerations favor sequelae of mild chronic microvascular ischemic changes or migraine headaches. 3. MRA head degraded by artifact. Within this limitation, no significant narrowing of the visualized intracranial arteries. 4. MRA neck limited secondary to noncontrast technique and artifact. Within these limitations, no significant narrowing of the cervical arteries. Dictated by Dat Sarabia MD @ May 21 2019 5:37PM Signed by Dr. Dat Sarabia @ May 21 2019 5:53PM
--- NOTE | 2019-05-21 17:54 | MR ---
INDICATION: Transient ischemic attack. TECHNIQUE: MRI brain: Multiplanar multisequence noncontrast MR images were acquired. MRA head: 3D jxmo-jy-jsphhi images were acquired. MRA neck: 2D and 3D ebkl-zc-jpjzpr images were acquired. COMPARISON: CT brain 05/21/2019. FINDINGS: MRI brain: Artifact significantly degrades the susceptibility weighted sequence and moderately degrades the sagittal T1 sequence. The ventricles and sulci within normal limits for patient age. No mass effect or midline shift. Few small foci of T2 FLAIR hyperintensity in the supratentorial white matter, nonspecific. No diffusion restriction to suggest acute infarction. No recent intracranial hemorrhage or pathologic extra-axial fluid collection. The globes are symmetric in size. Mild mucosal thickening in the left maxillary and left ethmoid sinuses. T2 hyperintensity within the left petrous apex is without calvarial expansion and may represent trapped fluid. The mastoid air cells are clear. MRA head: Motion artifact degrades image quality. The visualized intracranial, middle cerebral, and anterior cerebral arteries are patent without significant narrowing. Dominant left vertebral artery with hypoplastic right vertebral artery functionally terminating near the skullbase. No significant narrowing of the vertebral, basilar, or posterior cerebral arteries. No intracranial aneurysm MRA neck: Noncontrast technique limits evaluation. Artifact degrades the suhu-eo-zqunbl sequences. The left vertebral artery is dominant. The right vertebral artery is hypoplastic, functionally terminating near the skullbase. No significant narrowing of the common carotid, internal carotid, or vertebral arteries. IMPRESSION: 1. No acute infarction, mass effect, or recent intracranial hemorrhage. 2. Few small T2 FLAIR hyperintensities in the supratentorial white matter are nonspecific, though differential considerations favor sequelae of mild chronic microvascular ischemic changes or migraine headaches. 3. MRA head degraded by artifact. Within this limitation, no significant narrowing of the visualized intracranial arteries. 4. MRA neck limited secondary to noncontrast technique and artifact. Within these limitations, no significant narrowing of the cervical arteries. Dictated by Dat Sarabia MD @ May 21 2019 5:37PM Signed by Dr. Dat Sarabia @ May 21 2019 5:53PM
--- NOTE | 2019-05-21 17:54 | MR ---
INDICATION: Transient ischemic attack. TECHNIQUE: MRI brain: Multiplanar multisequence noncontrast MR images were acquired. MRA head: 3D oyhf-[id number] images were acquired. MRA neck: 2D and 3D fzqk-lw-[id number] images were acquired. COMPARISON: CT brain 05/21/2019. FINDINGS: MRI brain: Artifact significantly degrades the susceptibility weighted sequence and moderately degrades the sagittal T1 sequence. The ventricles and sulci within normal limits for patient age. No mass effect or midline shift. Few small foci of T2 FLAIR hyperintensity in the supratentorial white matter, nonspecific. No diffusion restriction to suggest acute infarction. No recent intracranial hemorrhage or pathologic extra-axial fluid collection. The globes are symmetric in size. Mild mucosal thickening in the left maxillary and left ethmoid sinuses. T2 hyperintensity within the left petrous apex is without calvarial expansion and may represent trapped fluid. The mastoid air cells are clear. MRA head: Motion artifact degrades image quality. The visualized intracranial, middle cerebral, and anterior cerebral arteries are patent without significant narrowing. Dominant left vertebral artery with hypoplastic right vertebral artery functionally terminating near the skullbase. No significant narrowing of the vertebral, basilar, or posterior cerebral arteries. No intracranial aneurysm MRA neck: Noncontrast technique limits evaluation. Artifact degrades the lhcm-vd-lkcasx sequences. The left vertebral artery is dominant. The right vertebral artery is hypoplastic, functionally terminating near the skullbase. No significant narrowing of the common carotid, internal carotid, or vertebral arteries. IMPRESSION: 1. No acute infarction, mass effect, or recent intracranial hemorrhage. 2. Few small T2 FLAIR hyperintensities in the supratentorial white matter are nonspecific, though differential considerations favor sequelae of mild chronic microvascular ischemic changes or migraine headaches. 3. MRA head degraded by artifact. Within this limitation, no significant narrowing of the visualized intracranial arteries. 4. MRA neck limited secondary to noncontrast technique and artifact. Within these limitations, no significant narrowing of the cervical arteries. Dictated by Dat Sarabia MD @ May 21 2019 5:37PM Signed by Dr. Dat Sarabia @ May 21 2019 5:53PM
[2019-05-21] MEDS ORDERED: Rosuvastatin 10 MG Tab PO SCH (21:00)
[2019-05-22] MEDS ORDERED: Aspirin 81 MG Tab.Chew PO SCH (09:00)
--- NOTE | 2019-05-22 10:47 | PCM.DCSUM1 ---
Discharge Summary - Discharge Data Discharge Date: 05/22/19 Discharge Disposition: Home, Self-Care 01 Condition: Good - Referral to Home Health Primary Care Physician: Ross Villalobos NP - Patient Summary/Data Hospital Course: 64 year old male with pmh of HTN, dyslipidemia, BPH, PAUL, with CPAP who was admitted for transient ischemic attack. He presented to the ED with complaints of transient left homonymous hemianopsial with no other neurological deficits. On presentation his labwork was within normal limits. CT head showed chronic sinusitis. CXR normal. MRI/MRA of head and neck show no acute pathology. Dr. Serrano was consulted on admission. Patient was monitored overnight with no events on telemetry. He is to be discharged today with Zio patch and follow up with Dr. Serrano. Echocardiogram report was pending at time of discharge. He was instructed to take Aspirin daily. He has a history of myalgias with statins so he was started on a low dose Crestor. - Patient Instructions Diet: Heart Healthy Diet Activity: As Tolerated Notify Provider of: Fever, Nausea and/or Vomiting - Discharge Plan Prescriptions/Med Rec: Aspirin 81 mg PO DAILY #30 tab.chew Rosuvastatin [Crestor] 10 mg PO BEDTIME #30 tablet Home Medications: Home Meds Venlafaxine [Effexor] 75 mg PO DAILY 08/16/14 [History] Multivitamin [Multivitamins] 1 tab PO DAILY 09/27/16 [History] Ciprofloxacin [Cipro] 500 mg PO BID 05/21/19 [History] Finasteride [Proscar] 5 mg PO DAILY 05/21/19 [History] Losartan Potassium 100 mg PO DAILY 05/21/19 [History] Tamsulosin HCl 0.4 mg PO DAILY 05/21/19 [History] hydroCHLOROthiazide [Hydrochlorothiazide] 25 mg PO DAILY 05/21/19 [History] Aspirin 81 mg PO DAILY #30 tab.chew 05/22/19 [Rx] Rosuvastatin [Crestor] 10 mg PO BEDTIME #30 tablet 05/22/19 [Rx] Patient Handouts: Transient Ischemic Attack, Kiix-hg-[id number], Acetaminophen tablets or caplets, Rosuvastatin Tablets Referrals: Staci Serrano MD [Physician] - (On Friday call the clinic to make an appointment with Dr. Serrano due to the recent vision lost. ) Ross Villalobos NP [Primary Care Provider] - ([facility] the next week.) - Discharge Summary/Plan Comment DC Time >30 min.: No - Patient Data Vitals - Most Recent: Last Vital Signs Temp 36.3 C 05/22/19 07:10 Pulse 65 05/22/19 07:10 Resp 18 05/22/19 07:10 BP 120/56 L 05/22/19 07:10 Pulse Ox 91 L 05/22/19 07:10 Weight - Most Recent: 117.934 kg I&O - Last 24 hours: Intake & Output 05/21/19 05/22/19 05/22/19 22:59 06:59 14:59 Intake Total 500 120 Output Total 350 Balance 150 120 Lab Results - Last 24 hrs: Laboratory Results - last 24 hr 05/21/19 05/21/19 05/21/19 Range/Units 13:55 13:55 13:55 WBC 7.80 (4.0-11.0) K/uL RBC 5.39 (4.50-5.90) M/uL Hgb 16.0 (13.0-17.0) g/dL Hct 46.4 (38.0-50.0) % MCV 86.1 (80.0-98.0) fL MCH 29.7 (27.0-32.0) pg MCHC 34.5 (31.0-37.0) g/dL RDW Std Deviation 43.7 (28.0-62.0) fl RDW Coeff of Komal 14 (11.0-15.0) % Plt Count 246 (150-400) K/uL MPV 10.40 (7.40-12.00) fL Neut % (Auto) 57.0 (48.0-80.0) % Lymph % (Auto) 26.3 (16.0-40.0) % [place] % (Auto) 12.1 (0.0-15.0) % Eos % (Auto) 4.2 (0.0-7.0) % Baso % (Auto) 0.4 (0.0-1.5) % Neut # (Auto) 4.5 (1.4-5.7) K/uL Lymph # (Auto) 2.1 (0.6-2.4) K/uL [place] # (Auto) 0.9 H (0.0-0.8) K/uL Eos # (Auto) 0.3 (0.0-0.7) K/uL Baso # (Auto) 0.0 (0.0-0.1) K/uL Nucleated RBC % 0.0 /100WBC Nucleated RBCs # 0 K/uL INR 1.04 APTT 27.3 (18.6-31.3) SEC Sodium 141 (136-148) mmol/L Potassium 3.8 (3.5-5.1) mmol/L Chloride 103 (98-107) mmol/L Carbon Dioxide 24.0 (21.0-32.0) mmol/L BUN 26 H (7.0-18.0) mg/dL Creatinine 1.2 (0.8-1.3) mg/dL Est Cr Clr Drug Dosing 53.39 mL/min Estimated GFR (MDRD) > 60.0 ml/min Glucose 105 (74-106) mg/dL Hemoglobin A1c (4.5-6.2) % Calcium 9.7 (8.5-10.1) mg/dL Total Bilirubin 0.5 (0.2-1.0) mg/dL AST 48 H (15-37) IU/L ALT 72 H (14-63) IU/L Alkaline Phosphatase 52 (46-116) U/L Troponin I < 0.050 (0.000-0.056) ng/mL Total Protein 7.8 (6.4-8.2) g/dL Albumin 4.1 (3.4-5.0) g/dL Globulin 3.7 (2.6-4.0) g/dL Albumin/Globulin Ratio 1.1 (0.9-1.6) Triglycerides (0-200) mg/dL Cholesterol (50-200) mg/dL LDL Cholesterol, Calc (60-180) mg/dL VLDL Cholesterol (5-55) mg/dL HDL Cholesterol (40-60) mg/dL Cholesterol/HDL Ratio (3.3-6.0) TSH 3rd Generation 1.07 (0.36-3.74) uIU/mL 05/21/19 05/22/19 Range/Units 13:55 06:12 WBC (4.0-11.0) K/uL RBC (4.50-5.90) M/uL Hgb (13.0-17.0) g/dL Hct (38.0-50.0) % MCV (80.0-98.0) fL MCH (27.0-32.0) pg MCHC (31.0-37.0) g/dL RDW Std Deviation (28.0-62.0) fl RDW Coeff of Komal (11.0-15.0) % Plt Count (150-400) K/uL MPV (7.40-12.00) fL Neut % (Auto) (48.0-80.0) % Lymph % (Auto) (16.0-40.0) % [place] % (Auto) (0.0-15.0) % Eos % (Auto) (0.0-7.0) % Baso % (Auto) (0.0-1.5) % Neut # (Auto) (1.4-5.7) K/uL Lymph # (Auto) (0.6-2.4) K/uL [place] # (Auto) (0.0-0.8) K/uL Eos # (Auto) (0.0-0.7) K/uL Baso # (Auto) (0.0-0.1) K/uL Nucleated RBC % /100WBC Nucleated RBCs # K/uL INR APTT (18.6-31.3) SEC Sodium (136-148) mmol/L Potassium (3.5-5.1) mmol/L Chloride (98-107) mmol/L Carbon Dioxide (21.0-32.0) mmol/L BUN (7.0-18.0) mg/dL Creatinine (0.8-1.3) mg/dL Est Cr Clr Drug Dosing mL/min Estimated GFR (MDRD) ml/min Glucose (74-106) mg/dL Hemoglobin A1c 5.9 (4.5-6.2) % Calcium (8.5-10.1) mg/dL Total Bilirubin (0.2-1.0) mg/dL AST (15-37) IU/L ALT (14-63) IU/L Alkaline Phosphatase (46-116) U/L Troponin I (0.000-0.056) ng/mL Total Protein (6.4-8.2) g/dL Albumin (3.4-5.0) g/dL Globulin (2.6-4.0) g/dL Albumin/Globulin Ratio (0.9-1.6) Triglycerides 164 (0-200) mg/dL Cholesterol 205 H (50-200) mg/dL LDL Cholesterol, Calc 128 (60-180) mg/dL VLDL Cholesterol 32 (5-55) mg/dL HDL Cholesterol 44 (40-60) mg/dL Cholesterol/HDL Ratio 4.7 (3.3-6.0) TSH 3rd Generation (0.36-3.74) uIU/mL Med Orders - Current: Current Medications Aspirin (Aspirin) 81 mg PO DAILY [facility] Last Admin: 05/22/19 08:49 Dose: 81 mg Melatonin (Melatonin) 6 mg PO BEDTIME PRN PRN Reason: Insomnia Last Admin: 05/21/19 21:20 Dose: 6 mg Ondansetron HCl (Zofran) 4 mg IVPUSH Q4H PRN PRN Reason: Nausea Rosuvastatin Calcium (Crestor) 10 mg PO BEDTIME [facility] Last Admin: 05/21/19 21:20 Dose: 10 mg Sodium Chloride (Saline Flush) 10 ml FLUSH ASDIRECTED PRN PRN Reason: Keep Vein Open Sodium Chloride (Saline Flush) 2.5 ml FLUSH ASDIRECTED PRN PRN Reason: Keep Vein Open Sodium Chloride (Normal Saline) 10 ml IV ASDIRECTED PRN PRN Reason: IV Use Discontinued Medications Aspirin (Aspirin) 81 mg PO ONETIME ONE Stop: 05/21/19 14:31 Last Admin: 05/21/19 14:41 Dose: 81 mg Gadobenate Dimeglumine (Multihance) 20 ml IVPUSH ONETIME STA Stop: 05/21/19 16:16 Last Admin: 05/21/19 16:16 Dose: 20 ml
[2019-05-22 11:44] VITALS: BP 126/72; PULSE 60
--- NOTE | 2019-05-25 14:19 | ECHO ---
EXAM DATE: 05/21/19 PATIENT'S AGE: 64 The echocardiogram report can be seen in this patient's EMR (Electronic Medical Record) in the REPORTS section. The report has also been scanned into PACs. AJAY
== END 2019-05-22 11:32 | disposition home or self-care (01) | DRG 69 ==
LOC: MW.ED 13:46 → MW.MS 14:08 → UNDOADMIN 14:08 → MW.MS 15:25
PROVIDERS: ADMIT Internal Medicine; ATTEND Internal Medicine
DX: G45.9 Transient cerebral ischemic attack, unspecified (principal); H53.462 Homonymous bilateral field defects, left side; J32.9 Chronic sinusitis, unspecified; H91.90 Unspecified hearing loss, unspecified ear; E78.5 Hyperlipidemia, unspecified; I10 Essential (primary) hypertension; G47.33 Obstructive sleep apnea (adult) (pediatric); N40.0 Benign prostatic hyperplasia without lower urinary tract symptoms; M54.2 Cervicalgia; G43.909 Migraine, unspecified, not intractable, without status migrainosus; H54.3 Unqualified visual loss, both eyes; G89.29 Other chronic pain; F32.9 Major depressive disorder, single episode, unspecified; E66.9 Obesity, unspecified; M54.9 Dorsalgia, unspecified; R29.700 NIHSS score 0; M79.10 Myalgia, unspecified site; Z99.81 Dependence on supplemental oxygen; Z79.82 Long term (current) use of aspirin; G47.30 Sleep apnea, unspecified; Z96.659 Presence of unspecified artificial knee joint; Z86.010 Personal history of colon polyps; Z90.89 Acquired absence of other organs; Z88.8 Allergy status to other drugs, medicaments and biological substances; Z79.899 Other long term (current) drug therapy
CPT/HCPCS: 36415; 70450; 71045; 80053; 83036; 84443; 84484; 85025; 85610; 85730; 99285; A9270; 70544; 70544-26; 70547; 70547-26; 70551; 70551-26; 80061; 93005; 93306; 99284; A9577

== ENCOUNTER 2020-02-28 17:37 | Emergency (ER) | payer MEDICARE, OTHER ==
[2020-02-28] MEDS ORDERED: Sodium Chloride 0.9% 10 ML Syringe FLUSH PRN (18:06)
[2020-02-28] MEDS ORDERED: Sodium Chloride 0.9% 2.5 ML Syringe FLUSH PRN (18:06)
--- NOTE | 2020-02-28 18:08 | EDM.PDOC ---
<Luis Fernando Bello - Last Filed: 02/28/20 20:46> ED HPI GENERAL MEDICAL PROBLEM - General Chief Complaint: Respiratory Problem Stated Complaint: TROUBLE BREATHING Time Seen by Provider: 02/28/20 18:01 - History of Present Illness INITIAL COMMENTS - FREE TEXT/NARRATIVE: 8:47 PM: Signout received at 7 PM. Patient's been seen and evaluated by me multiple times. Patient's work-up in the ER was remarkable for an elevated D- dimer of 0.57. After shared decision-making discussion with the patient, a CTA of the chest has been ordered to evaluate for potential pulmonary embolism given the high risk of coagulopathy with coronavirus. Patient's CTA did not reveal any evidence of PE. There was a significant amount of groundglass appearance consistent with viral pneumonia/coronavirus. Patient's pulse ox has remained in the 95 to 96% range while here in the ED. Patient does not appear tachypneic and does not appear to be in any acute distress. Patient been resting comfortably in bed. Patient has been given 1 L of normal saline as well as Zofran to assist with his nausea. Patient reports he does not wish for me to call him in a prescription for Zofran as he thinks he will do well at home with taking liquids and bland diet. Patient is requesting that I start him on steroids. Patient understands the studies and that although he is not a candidate since his pulse ox is 96%, he is still requesting that he receive the steroids. 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 Reassessment at the time of disposition demonstrates that the patient is in no acute distress. The patient has remained stable throughout the entire ED visit and is without objective evidence for acute process requiring urgent intervention or hospitalization. The patient is stable for discharge, counseling is provided as documented above, discussed symptomatic treatment and specific conditions for return. I have spoken with the patient/caregiver and discussed todays findings, in addition to providing specific details for the plan of care. Questions are answered and there is agreement with the plan. - Related Data Allergies Allergy/AdvReac Type Severity Reaction Status Date / Time hydromorphone Allergy Hives Verified 03/05/20 20:02 Home Meds: Home Meds Venlafaxine [Effexor] 75 mg PO DAILY 08/16/14 [History] Losartan Potassium 100 mg PO DAILY 05/21/19 [History] Tamsulosin HCl 0.4 mg PO DAILY 05/21/19 [History] hydroCHLOROthiazide [Hydrochlorothiazide] 25 mg PO DAILY 05/21/19 [History] Aspirin 81 mg PO DAILY #30 tab.chew 05/22/19 [Rx] Rosuvastatin [Crestor] 10 mg PO BEDTIME #30 tablet 05/22/19 [Rx] Amoxicillin/Potassium Clav [Augmentin 875-125 Tablet] 1 each PO BID #14 tablet 03/04/20 [Rx] Departure - Departure Time of Disposition: 20:49 Disposition: Home, Self-Care 01 Condition: Good Clinical Impression: Pneumonia due to 2019 novel coronavirus - Discharge Information Instructions: COVID-19 Frequently Asked Questions, COVID-19, COVID-19: How to Protect Yourself and Others - CDC, Prevent the Spread of COVID-19 if You Are Sick - [facility] Referrals: PCP,None [Primary Care Provider] - Forms: ED Department Discharge Additional Instructions: You have been seen and evaluated in the ER today secondary to shortness of breath and recent diagnosis of coronavirus. Your oxygen level in the emergency department is 96%. Your labs are all within normal limits except for an elevated D-dimer. Your CT scan of your chest does not reveal any evidence of blood clots however it does reveal that you do have inflammation of your lungs secondary to the coronavirus. You have been given a dose of 10 mg of Decadron here in the ED and you will be given a prescription for prednisone to take for 5 days. 1. Your COVID-19 screening is positive. That means you do have the coronavirus and you are considered contagious. Your vital signs and oxygen saturation are well enough that you were able to monitor your symptoms at home. Continue to monitor for trouble breathing, new confusion or inability to arouse, bluish lips or face or any of the other symptoms we discussed -if this occurs please return to the emergency room. 2. Please self quarantine over the next 10 days. Inform any persons that you have been in contact with since you started becoming symptomatic that you have tested positive; they should be made aware and take the appropriate steps as needed. 3. You can take NyQuil during the evening to help get a restful night sleep. May alternate Tylenol and ibuprofen as needed for pain and fever management. 4. The [facility] will be calling you and following up with you. The [place] COVID 19 Hotline phone number , They are open Friday - Friday 7am - 7pm. Follow up with your primary care provider for re-evaluation and re-testing after the 10 day quarantine and discuss when you should be seen. The following information is given to patients seen in the emergency department who are being discharged to home. This information is to outline your options for follow-up care. We provide all patients seen in our emergency department with a follow-up referral. The need for follow-up, as well as the timing and circumstances, are variable depending upon the specifics of your emergency department visit. If you don't have a primary care physician on staff, we will provide you with a referral. We always advise you to contact your personal physician following an emergency department visit to inform them of the circumstance of the visit and for follow-up with them and/or the need for any referrals to a consulting specialist. The emergency department will also refer you to a specialist when appropriate. This referral assures that you have the opportunity for follow-up care with a specialist. All of these measure are taken in an effort to provide you with optimal care, which includes your follow-up. Under all circumstances we always encourage you to contact your private ph ysician who remains a resource for coordinating your care. When calling for follow-up care, please make the office aware that this follow-up is from your recent emergency room visit. If for any reason you are refused follow-up, please contact the [facility] Emergency Department at and asked to speak to the emergency department charge nurse. <Rene Springer - Last Filed: 03/06/20 07:05> ED HPI GENERAL MEDICAL PROBLEM - General Source of Information: Reports: Patient History Limitations: Reports: No Limitations - History of Present Illness INITIAL COMMENTS - FREE TEXT/NARRATIVE: 64-year-old male past medical history hyperlipidemia, transient ischemic attack presents for worsening shortness of breath with known COVID-19 diagnosis. Patient states that he has been feeling ill for about the last 4 days, had a COVID-19 test done 4 days ago, resulted today is positive. Patient notes that he has been monitoring his oxygen saturation at home, and today it was persistently 88 to 90%. He is a non-smoker without any underlying lung pathology at baseline. He endorses worsening shortness of breath, nonproductive cough. He notes subjective fevers. He denies any chest pain or chest tightness. He has felt some nausea, but no actual vomiting. No abdominal pain. abdomen Pain Score (Numeric/FACES): 4 Past Medical History HEENT History: Reports: Hard of Hearing Other HEENT History: wears glasses Cardiovascular History: Reports: Hypertension Respiratory History: Reports: Sleep Apnea Other Respiratory History: uses CPAP Gastrointestinal History: Reports: Colon Polyp Genitourinary History: Reports: BPH Other Genitourinary History: recently on antibiotic for prostate Musculoskeletal History: Reports: Back Pain, Chronic, Fracture Other Musculoskeletal History: hx of fx right arm Neurological History: Reports: None Psychiatric History: Reports: Depression Endocrine/Metabolic History: Reports: Obesity/BMI 30+ Hematologic History: Reports: None Immunologic History: Reports: None Oncologic (Cancer) History: Reports: None Dermatologic History: Reports: None - Infectious Disease History Infectious Disease History: Reports: None - Past Surgical History Head Surgeries/Procedures: Reports: None HEENT Surgical History: Reports: Tonsillectomy Other Cardiovascular Surgeries/Procedures: hx cardiac cath GI Surgical History: Reports: Colonoscopy Male Surgical History: Reports: TURP-Transurethral Resection of Prostate Musculoskeletal Surgical History: Reports: Knee Replacement, Other (See Below) Other Musculoskeletal Surgeries/Procedures:: hx of foot reconstruction, hx of surgery on right wrist- no hardware Social & Family History - Family History Family Medical History: Noncontributory GI: Reports: Cirrhosis - Caffeine Use Caffeine Use: Reports: Coffee, Soda, Tea Caffeine Use Comment: 2 cups of coffee daily and tea accassionally - Living Situation & Occupation Living situation: Reports: Occupation: Employed ED ROS GENERAL - Review of Systems Review Of Systems: Comprehensive ROS is negative, except as noted in HPI. ED EXAM, GENERAL - Physical Exam Exam: See Below Exam Limited By: No Limitations General Appearance: Alert, WD/WN, No Apparent Distress Throat/Mouth: Normal Voice, No Airway Compromise Head: Atraumatic, Normocephalic Neck: Normal Inspection Respiratory/Chest: No Respiratory Distress, Lungs Clear, Normal Breath Sounds, No Accessory Muscle Use Cardiovascular: Normal Peripheral Pulses, Regular Rate, Rhythm GI/Abdominal: Soft, Non-Tender Extremities: Normal Inspection Neurological: Alert Psychiatric: Normal Affect, Normal Mood Skin Exam: Warm, Dry, Intact, Normal Color #1 Interpretation EKG Date: 02/28/20 Time: 18:48 Rhythm: NSR Rate (Beats/Min): 68 [place]: Normal P-Wave: Present QRS: Normal ST-T: Normal QT: Normal DC/PQ Interval: 166 EKG Interpretation Comments: no ischemic changes, normal EKG Course - Vital Signs Last Recorded V/S: Last Vital Signs Temp 96.7 F L 02/28/20 18:00 Pulse 67 02/28/20 20:48 Resp 18 02/28/20 20:48 BP 136/54 L 02/28/20 20:48 Pulse Ox 95 02/28/20 20:48 - Orders/Labs/Meds Labs: Laboratory Tests 02/28/20 02/28/20 02/28/20 Range/Units 18:44 18:44 18:44 WBC 6.33 (4.0-11.0) K/uL RBC 5.58 (4.50-5.90) M/uL Hgb 16.4 (13.0-17.0) g/dL Hct 49.6 (38.0-50.0) % MCV 88.9 (80.0-98.0) fL MCH 29.4 (27.0-32.0) pg MCHC 33.1 (31.0-37.0) g/dL RDW Std Deviation 48.8 (28.0-62.0) fl RDW Coeff of Komal 15 (11.0-15.0) % Plt Count 162 (150-400) K/uL MPV 9.70 (7.40-12.00) fL Add Manual Diff YES Neutrophils % (Manual) 56 (48.0-80.0) % Lymphocytes % (Manual) 23 (16.0-40.0) % Monocytes % (Manual) 21 H (0.0-15.0) % Nucleated RBC % 0.0 /100WBC Absolute Seg Neuts 3.5 (1.4-5.7) Band Neutrophils # 1.5 Lymphocytes # (Manual) 1.5 (0.6-2.4) Monocytes # (Manual) 1.3 H (0.0-0.8) Nucleated RBCs # 0 K/uL INR APTT (18.6-31.3) SEC D-Dimer, Quantitative 0.57 H (0.0-0.50) mg/L FEU Lactate 1.6 (0.20-2.00) mmol/L Sodium (136-148) mmol/L Potassium (3.5-5.1) mmol/L Chloride (98-107) mmol/L Carbon Dioxide (21.0-32.0) mmol/L BUN (7.0-18.0) mg/dL Creatinine (0.8-1.3) mg/dL Est Cr Clr Drug Dosing mL/min Estimated GFR (MDRD) ml/min Glucose (74-106) mg/dL Calcium (8.5-10.1) mg/dL Magnesium (1.8-2.4) mg/dL Total Bilirubin (0.2-1.0) mg/dL AST (15-37) IU/L ALT (14-63) IU/L Alkaline Phosphatase (46-116) U/L Troponin I (0.000-0.056) ng/mL C-Reactive Protein (0.00-0.90) mg/dL B-Natriuretic Peptide (<100) PG/ML Total Protein (6.4-8.2) g/dL Albumin (3.4-5.0) g/dL Globulin (2.6-4.0) g/dL Albumin/Globulin Ratio (0.9-1.6) 02/28/20 02/28/20 02/28/20 Range/Units 18:44 18:44 18:44 WBC (4.0-11.0) K/uL RBC (4.50-5.90) M/uL Hgb (13.0-17.0) g/dL Hct (38.0-50.0) % MCV (80.0-98.0) fL MCH (27.0-32.0) pg MCHC (31.0-37.0) g/dL RDW Std Deviation (28.0-62.0) fl RDW Coeff of Komal (11.0-15.0) % Plt Count (150-400) K/uL MPV (7.40-12.00) fL Add Manual Diff Neutrophils % (Manual) (48.0-80.0) % Lymphocytes % (Manual) (16.0-40.0) % Monocytes % (Manual) (0.0-15.0) % Nucleated RBC % /100WBC Absolute Seg Neuts (1.4-5.7) Band Neutrophils # Lymphocytes # (Manual) (0.6-2.4) Monocytes # (Manual) (0.0-0.8) Nucleated RBCs # K/uL INR 1.00 APTT 26.5 (18.6-31.3) SEC D-Dimer, Quantitative (0.0-0.50) mg/L FEU Lactate (0.20-2.00) mmol/L Sodium 140 (136-148) mmol/L Potassium 3.6 (3.5-5.1) mmol/L Chloride 103 (98-107) mmol/L Carbon Dioxide 22.0 (21.0-32.0) mmol/L BUN 20 H (7.0-18.0) mg/dL Creatinine 1.3 (0.8-1.3) mg/dL Est Cr Clr Drug Dosing 51.12 mL/min Estimated GFR (MDRD) 55.4 ml/min Glucose 108 H (74-106) mg/dL Calcium 9.7 (8.5-10.1) mg/dL Magnesium 2.2 (1.8-2.4) mg/dL Total Bilirubin 0.4 (0.2-1.0) mg/dL AST 42 H (15-37) IU/L ALT 99 H (14-63) IU/L Alkaline Phosphatase 54 (46-116) U/L Troponin I < 0.050 (0.000-0.056) ng/mL C-Reactive Protein < 0.20 (0.00-0.90) mg/dL B-Natriuretic Peptide 4 (<100) PG/ML Total Protein 7.4 (6.4-8.2) g/dL Albumin 4.0 (3.4-5.0) g/dL Globulin 3.4 (2.6-4.0) g/dL Albumin/Globulin Ratio 1.2 (0.9-1.6) Meds: Medications Discontinued Medications Generic Name Dose Route Start Last Admin Trade Name Freq PRN Reason Stop Dose Admin Dexamethasone 10 mg 02/28/20 19:25 02/28/20 20:13 Decadron IVPUSH 02/28/20 19:26 10 mg ONETIME ONE Administration Sodium Chloride 1,000 mls @ 999 mls/hr 02/28/20 19:25 02/28/20 20:13 Normal Saline IV 02/28/20 20:25 999 mls/hr .Bolus ONE Administration Iopamidol 75 ml 02/28/20 20:15 02/28/20 20:16 Isovue Multipack-370 (76%) IVPUSH 02/28/20 20:16 75 ml ONETIME STA Administration Ondansetron HCl 4 mg 02/28/20 19:25 02/28/20 20:13 Zofran IVPUSH 02/28/20 19:26 4 mg ONETIME ONE Administration Sodium Chloride 10 ml 02/28/20 18:06 02/28/20 20:13 Saline Flush FLUSH 10 ml ASDIRECTED PRN Administration Keep Vein Open Sodium Chloride 2.5 ml 02/28/20 18:06 02/28/20 20:13 Saline Flush FLUSH 2.5 ml ASDIRECTED PRN Administration Keep Vein Open - Re-Assessments/Exams Free Text/Narrative Re-Assessment/Exam: 02/28/20 18:14 Patient presents with known COVID-19 infection and hypoxia reported at home. Will get labs including D-dimer, troponin. Will get chest x-ray. Patient is not requiring oxygen in the hospital with oxygen saturations ranging from 94 to 98%. We will follow up results and disposition accordingly. Sepsis Event Note (ED) - Evaluation Sepsis Screening Result: No Definite Risk
--- NOTE | 2020-02-28 18:46 | CR ---
INDICATION: Worsening shortness of breath TECHNIQUE: Single AP view chest COMPARISON: Single view chest dated May 21, 2019 FINDINGS: Hyperinflation and chronic interstitial changes without dense consolidation. The cardiac silhouette is stable. The bony thorax is grossly intact. IMPRESSION: Stable hyperinflation and chronic interstitial changes without acute osseus abnormality. Dictated by Daniel Dominguez MD @ Feb 28 2020 6:40PM Signed by Dr. Daniel Dominguez @ Feb 28 2020 6:45PM
[2020-02-28 19:15] LABS: BLOOD UREA NITROGEN,BUN 20 mg/dL (7.0-18.0); CHLORIDE,CL 103 mmol/L (98-107); GLUCOSE RANDOM 108 mg/dL (74-106); POTASSIUM,K 3.6 mmol/L (3.5-5.1); SODIUM,NA 140 mmol/L (136-148)
[2020-02-28] MEDS ORDERED: Ondansetron 4 MG/2 ML SDV IVPUSH ONE (19:25)
[2020-02-28] MEDS ORDERED: Dexamethasone 10 MG/ML SDV IVPUSH ONE (19:25)
[2020-02-28] MEDS ORDERED: Sodium Chloride 0.9% 1,000 ML IV ONE (19:25)
[2020-02-28] MEDS ORDERED: Iopamidol 755 MG/ML 500 ML Multipack Bottle IVPUSH STA (20:15)
--- NOTE | 2020-02-28 20:37 | CT ---
Indication: Ahuja virus positive, elevated D-dimer and shortness of breath Technique: Volumetric multidetector CT images of the chest were obtained after the administration of IV contrast. 75 cc Isovue 370 Comparison: None available. Findings: The thoracic inlet and thyroid gland are unremarkable. The thoracic aorta is nonaneurysmal. There is no central filling defect to suggest pulmonary embolus. Admixture of contrast in the main pulmonary artery is noted. Exam is mildly limited due to contrast bolus timing. There are calcified mediastinal and hilar lymph nodes. There is no axillary adenopathy. The trachea and bronchi are well aerated without significant bronchiectasis. There are ground-glass opacities seen within the peripheral right lung base as well as the peripheral bilateral upper lobes likely representing viral infiltrates. There is no pleural effusion or pneumothorax. There is no evidence of pulmonary mass or suspicious pulmonary nodule. The partially visualized upper abdominal viscera demonstrates hepatomegaly and hepatic steatosis. There is a small hiatal hernia. The thoracic vertebral body heights are grossly maintained with mild to moderate multilevel degenerative disc disease. There is no significant spondylolisthesis or displaced fracture. There are flowing anterior osteophytes. Impression: Demonstration of scattered ground-glass opacities within the right lower lobe in bilateral upper lobes consistent with viral pneumonia. Mildly limited evaluation of the pulmonary arteries due to limited bolus timing. No large filling defect is appreciated. Please note that all CT scans at this facility use dose modulation, iterative reconstruction, and/or weight-based dosing when appropriate to reduce radiation dose to as low as reasonably achievable. Dictated by Daniel Dominguez MD @ Feb 28 2020 8:27PM Signed by Dr. aDniel Dominguez @ Feb 28 2020 8:35PM
[2020-02-28 20:56] VITALS: BP 136/54; PULSE 67
== END 2020-02-28 20:59 | disposition home or self-care (01) ==
LOC: MW.ED 17:37
DX: U07.1 COVID-19 (principal); J12.89 Other viral pneumonia; E78.5 Hyperlipidemia, unspecified; N40.0 Benign prostatic hyperplasia without lower urinary tract symptoms; F32.9 Major depressive disorder, single episode, unspecified; E66.9 Obesity, unspecified; Z88.5 Allergy status to narcotic agent; Z79.82 Long term (current) use of aspirin; Z79.899 Other long term (current) drug therapy; Z86.73 Personal history of transient ischemic attack (TIA), and cerebral infarction without residual deficits; Z68.41 Body mass index [BMI] 40.0-44.9, adult
CPT/HCPCS: 36415; 71045; 71275; 80053; 83605; 83735; 83880; 84484; 85025; 85379; 85610; 85730; 86140; 93005; 96374; 96375; 99285; J1100; J2405; J7030; Q9967; 93010; 99284

== ENCOUNTER 2020-03-04 16:28 | Emergency (ER) | payer MEDICARE, OTHER ==
[2020-03-04] MEDS ORDERED: Ondansetron 4 MG/2 ML SDV IVPUSH ONE (16:41)
[2020-03-04] MEDS ORDERED: Famotidine 20 MG/2 ML SDV IVPUSH ONE (16:41)
[2020-03-04] MEDS ORDERED: Sodium Chloride 0.9% 1,000 ML IV ONE (16:41)
[2020-03-04] MEDS ORDERED: Sodium Chloride 0.9% 10 ML Syringe FLUSH PRN (16:41)
[2020-03-04] MEDS ORDERED: Sodium Chloride 0.9% 2.5 ML Syringe FLUSH PRN (16:41)
--- NOTE | 2020-03-04 17:06 | EDM.PDOC ---
ED HPI GENERAL MEDICAL PROBLEM - General Chief Complaint: General Stated Complaint: COVID COMPLICATIONS Time Seen by Provider: 03/04/20 16:36 Source of Information: Reports: Patient History Limitations: Reports: No Limitations - History of Present Illness INITIAL COMMENTS - FREE TEXT/NARRATIVE: History of present illness: [Patient is 64-year-old male with a history of hypertension and recent Covid 19 diagnosis who presents to the ER with worsening Covid symptoms. He states that he has a worsening cough, fatigue, associated shortness of breath, and that over the last 24 hours symptoms seem to have worsened. He denies chest pain. Denies fever. Denies blurry vision or headache. Reports one episode of vomiting this morning and 1-2 episodes of diarrhea over the last 24 hours. Denies taking any medications to treat his symptoms at home.] Review of systems: As per history of present illness and below otherwise all systems reviewed and negative. Past medical history: As per history of present illness and as reviewed below otherwise noncontributory. Surgical history: As per history of present illness and as reviewed below otherwise noncontributory. Social history: No reported history of drug or alcohol abuse. Family history: As per history of present illness and as reviewed below otherwise noncontributory. Physical exam: General: Awake, alert, no acute distress, A&O X3. HEENT: Atraumatic, normocephalic, pupils reactive, negative for conjunctival pallor or scleral icterus, mucous membranes moist, throat clear, neck supple, nontender, trachea midline. Lungs: Clear to auscultation, breath sounds equal bilaterally, chest nontender. Heart: RRR, normal S1S2, no JVD. Abdomen: Soft, nondistended, nontender. Negative for masses or hepatosplenomegaly. Pelvis: Stable nontender. Genitourinary: Deferred. Rectal: Deferred. Extremities: Atraumatic, no edema, Neurovascular unremarkable. Neuro: Motor and sensory grossly intact throughout. Exam nonfocal. Diagnostics: [] Therapeutics: [] Impression: [] Plan: [] Definitive disposition and diagnosis as appropriate pending reevaluation and review of above. Abdomen Pain Score (Numeric/FACES): 4 - Related Data Allergies Allergy/AdvReac Type Severity Reaction Status Date / Time hydromorphone Allergy Hives Verified 03/04/20 16:34 Home Meds: Home Meds Venlafaxine [Effexor] 75 mg PO DAILY 08/16/14 [History] Multivitamin [Multivitamins] 1 tab PO DAILY 09/27/16 [History] Losartan Potassium 100 mg PO DAILY 05/21/19 [History] Tamsulosin HCl 0.4 mg PO DAILY 05/21/19 [History] hydroCHLOROthiazide [Hydrochlorothiazide] 25 mg PO DAILY 05/21/19 [History] Aspirin 81 mg PO DAILY #30 tab.chew 05/22/19 [Rx] Rosuvastatin [Crestor] 10 mg PO BEDTIME #30 tablet 05/22/19 [Rx] predniSONE [Prednisone] 50 mg PO DAILY #5 tablet 02/28/20 [Rx] Amoxicillin/Potassium Clav [Augmentin 875-125 Tablet] 1 each PO BID #14 tablet 03/04/20 [Rx] Past Medical History HEENT History: Reports: Hard of Hearing Other HEENT History: wears glasses Cardiovascular History: Reports: Hypertension Respiratory History: Reports: Sleep Apnea Other Respiratory History: uses CPAP Gastrointestinal History: Reports: Colon Polyp Genitourinary History: Reports: BPH Other Genitourinary History: recently on antibiotic for prostate Musculoskeletal History: Reports: Back Pain, Chronic, Fracture Other Musculoskeletal History: hx of fx right arm Neurological History: Reports: None Psychiatric History: Reports: Depression Endocrine/Metabolic History: Reports: Obesity/BMI 30+ Hematologic History: Reports: None Immunologic History: Reports: None Oncologic (Cancer) History: Reports: None Dermatologic History: Reports: None - Infectious Disease History Infectious Disease History: Reports: Chicken Pox, Measles, Mumps, Novel Coronavirus - Past Surgical History Head Surgeries/Procedures: Reports: None HEENT Surgical History: Reports: Tonsillectomy Other Cardiovascular Surgeries/Procedures: hx cardiac cath GI Surgical History: Reports: Colonoscopy Male Surgical History: Reports: TURP-Transurethral Resection of Prostate Musculoskeletal Surgical History: Reports: Knee Replacement, Other (See Below) Other Musculoskeletal Surgeries/Procedures:: hx of foot reconstruction, hx of surgery on right wrist- no hardware Social & Family History - Family History Family Medical History: Noncontributory GI: Reports: Cirrhosis - Tobacco Use Tobacco Use Status *Q: Never Tobacco User - Caffeine Use Caffeine Use: Reports: None Caffeine Use Comment: 2 cups of coffee daily and tea accassionally - Recreational Drug Use Recreational Drug Use: No - Living Situation & Occupation Living situation: Reports: Occupation: Employed ED ROS GENERAL - Review of Systems Review Of Systems: Comprehensive ROS is negative, except as noted in HPI. ED EXAM, GENERAL - Physical Exam Exam: See Below (see h and p) #1 Interpretation EKG Date: 03/04/20 Time: 17:51 Rhythm: NSR Rate (Beats/Min): 56 [place]: Normal P-Wave: Present QRS: Normal ST-T: Normal QT: Normal Course - Vital Signs Text/Narrative:: Patient with a reassuring work-up overall, not hypoxic, stable vital signs, feeling better after getting IV fluids. Is mildly hyponatremic and hypokalemic. Nonischemic EKG, negative troponin, because of his worsening symptoms and evidence of possible worsening pneumonia, I believe a superimposed bacterial infection on top of the Covid diagnosis is a distinct possibility. I elected to treat him with antibiotics here including Rocephin and azithromycin. Send him home with a prescription for Z-Jaziel and Augmentin. Encouraged outpatient follow- up. I do not believe he requires admission at this time. He is doing well on room air and is not in respiratory distress. Return precautions provided. Patient is agreeable with this plan and stable at discharge. Last Recorded V/S: Last Vital Signs Temp 36.2 C 03/04/20 16:32 Pulse 76 03/04/20 16:32 Resp 16 03/04/20 16:32 BP 118/69 03/04/20 16:32 Pulse Ox 94 L 03/04/20 16:32 - Orders/Labs/Meds Orders: Active Orders 24 hr Category Date Time Status EKG Documentation Completion [RC] STAT Care 03/04/20 16:41 Active Azithromycin [Zithromax] 500 mg Med 03/04/20 17:30 Active Sodium Chloride 0.9% [Normal Saline (AdvBag)] 250 ml IV ONETIME Sodium Chloride 0.9% [Saline Flush] Med 03/04/20 16:41 Active 10 ml FLUSH ASDIRECTED PRN Sodium Chloride 0.9% [Saline Flush] Med 03/04/20 16:41 Active 2.5 ml FLUSH ASDIRECTED PRN Saline Lock Insert [OM.PC] Stat Oth 03/04/20 16:41 Ordered Medication Orders Azithromycin 500 mg/ Sodium (Chloride) 250 mls @ 250 mls/hr IV ONETIME ALBINO Sodium Chloride (Saline Flush) 10 ml FLUSH ASDIRECTED PRN PRN Reason: Keep Vein Open Last Admin: 03/04/20 17:05 Dose: 10 ml Documented by: EULA Sodium Chloride (Saline Flush) 2.5 ml FLUSH ASDIRECTED PRN PRN Reason: Keep Vein Open Last Admin: 03/04/20 17:04 Dose: 2.5 ml Documented by: EULA Labs: Laboratory Tests 03/04/20 03/04/20 Range/Units 17:10 17:10 WBC 5.38 (4.0-11.0) K/uL RBC 5.77 (4.50-5.90) M/uL Hgb 17.3 H (13.0-17.0) g/dL Hct 49.9 (38.0-50.0) % MCV 86.5 (80.0-98.0) fL MCH 30.0 (27.0-32.0) pg MCHC 34.7 (31.0-37.0) g/dL RDW Std Deviation 44.6 (28.0-62.0) fl RDW Coeff of Komal 14 (11.0-15.0) % Plt Count 115 L (150-400) K/uL MPV 10.70 (7.40-12.00) fL Neut % (Auto) 65.8 (48.0-80.0) % Lymph % (Auto) 17.1 (16.0-40.0) % [place] % (Auto) 17.1 H (0.0-15.0) % Eos % (Auto) 0.0 (0.0-7.0) % Baso % (Auto) 0.0 (0.0-1.5) % Neut # (Auto) 3.5 (1.4-5.7) K/uL Lymph # (Auto) 0.9 (0.6-2.4) K/uL [place] # (Auto) 0.9 H (0.0-0.8) K/uL Eos # (Auto) 0.0 (0.0-0.7) K/uL Baso # (Auto) 0.0 (0.0-0.1) K/uL Nucleated RBC % 0.0 /100WBC Nucleated RBCs # 0 K/uL Sodium 132 L (136-148) mmol/L Potassium 3.3 L (3.5-5.1) mmol/L Chloride 95 L (98-107) mmol/L Carbon Dioxide 26.5 (21.0-32.0) mmol/L BUN 23 H (7.0-18.0) mg/dL Creatinine 1.3 (0.8-1.3) mg/dL Est Cr Clr Drug Dosing 51.12 mL/min Estimated GFR (MDRD) 55.4 ml/min Glucose 119 H (74-106) mg/dL Calcium 9.0 (8.5-10.1) mg/dL Total Bilirubin 0.7 (0.2-1.0) mg/dL AST 55 H (15-37) IU/L ALT 99 H (14-63) IU/L Alkaline Phosphatase 56 (46-116) U/L Troponin I < 0.050 (0.000-0.056) ng/mL Total Protein 7.6 (6.4-8.2) g/dL Albumin 3.9 (3.4-5.0) g/dL Globulin 3.7 (2.6-4.0) g/dL Albumin/Globulin Ratio 1.1 (0.9-1.6) Meds: Medications Generic Name Dose Route Start Last Admin Trade Name Freq PRN Reason Stop Dose Admin Azithromycin 500 mg/ Sodium 250 mls @ 250 mls/hr 03/04/20 17:30 Chloride IV ONETIME ALBINO Sodium Chloride 10 ml 03/04/20 16:41 03/04/20 17:05 Saline Flush FLUSH 10 ml ASDIRECTED PRN Administration Keep Vein Open Sodium Chloride 2.5 ml 03/04/20 16:41 03/04/20 17:04 Saline Flush FLUSH 2.5 ml ASDIRECTED PRN Administration Keep Vein Open Discontinued Medications Generic Name Dose Route Start Last Admin Trade Name Freq PRN Reason Stop Dose Admin Ceftriaxone Sodium 1 gm 03/04/20 17:20 Rocephin IVPUSH 03/04/20 17:21 ONETIME ONE Famotidine 20 mg 03/04/20 16:41 03/04/20 17:04 Pepcid IVPUSH 03/04/20 16:42 20 mg ONETIME ONE Administration Sodium Chloride 1,000 mls @ 999 mls/hr 03/04/20 16:41 03/04/20 17:04 Normal Saline IV 03/04/20 17:41 999 mls/hr .Bolus ONE Administration Ondansetron HCl 4 mg 03/04/20 16:41 03/04/20 17:04 Zofran IVPUSH 03/04/20 16:42 4 mg ONETIME ONE Administration Departure - Departure Time of Disposition: 06:30 Disposition: Home, Self-Care 01 Condition: Good Clinical Impression: Pneumonia, COVID-19 - Discharge Information Prescriptions: Amoxicillin/Potassium Clav [Augmentin 875-125 Tablet] 1 each PO BID #14 tablet Instructions: COVID-19 Frequently Asked Questions Referrals: Juanito Funes MD [Primary Care Provider] - Forms: ED Department Discharge Additional Instructions: Follow-up with primary care doctor. Take all medications as prescribed. Return to the ER with any new or worsening symptoms. The following information is given to patients seen in the emergency department who are being discharged to home. This information is to outline your options for follow-up care. We provide all patients seen in our emergency department with a follow-up referral. The need for follow-up, as well as the timing and circumstances, are variable depending upon the specifics of your emergency department visit. If you don't have a primary care physician on staff, we will provide you with a referral. We always advise you to contact your personal physician following an emergency department visit to inform them of the circumstance of the visit and for follow-up with them and/or the need for any referrals to a consulting specialist. The emergency department will also refer you to a specialist when appropriate. This referral assures that you have the opportunity for follow-up care with a specialist. All of these measure are taken in an effort to provide you with optimal care, which includes your follow-up. Under all circumstances we always encourage you to contact your private physician who remains a resource for coordinating your care. When calling for follow-up care, please make the office aware that this follow-up is from your recent emergency room visit. If for any reason you are refused follow-up, please contact the [facility] Emergency Department at and asked to speak to the emergency department charge nurse. Sepsis Event Note (ED) - Evaluation Sepsis Screening Result: No Definite Risk - Focused Exam Vital Signs: Vital Signs Temp Pulse Resp BP Pulse Ox 03/04/20 16:32 36.2 C 76 16 118/69 94 L - My Orders Last 24 Hours: My Active Orders 03/04/20 16:41 EKG Documentation Completion [RC] STAT Sodium Chloride 0.9% [Saline Flush] 10 ml FLUSH ASDIRECTED PRN Sodium Chloride 0.9% [Saline Flush] 2.5 ml FLUSH ASDIRECTED PRN Saline Lock Insert [OM.PC] Stat 03/04/20 17:30 Azithromycin [Zithromax] 500 mg Sodium Chloride 0.9% [Normal Saline (AdvBag)] 250 ml IV ONETIME - Assessment/Plan Last 24 Hours: My Active Orders 03/04/20 16:41 EKG Documentation Completion [RC] STAT Sodium Chloride 0.9% [Saline Flush] 10 ml FLUSH ASDIRECTED PRN Sodium Chloride 0.9% [Saline Flush] 2.5 ml FLUSH ASDIRECTED PRN Saline Lock Insert [OM.PC] Stat 03/04/20 17:30 Azithromycin [Zithromax] 500 mg Sodium Chloride 0.9% [Normal Saline (AdvBag)] 250 ml IV ONETIME
--- NOTE | 2020-03-04 17:08 | CR ---
INDICATION: Cough. COMPARISON: February 28, 2020 CT and plain film. FINDINGS: New perihilar airspace opacity left mid lung. Pulmonary vascularity is within normal limits. IMPRESSION: Worsening left upper lobe pneumonia. COVID not excluded. Dictated by Jostin Pollard MD @ Mar 04 2020 5:05PM Signed by Dr. Jostin Pollard @ Mar 04 2020 5:07PM
[2020-03-04] MEDS ORDERED: cefTRIAXone 1 GM Vial IVPUSH ONE (17:20)
[2020-03-04] MEDS ORDERED: Azithromycin 500 MG in Sodium Chloride 0.9% 250 ML IV SCH (17:30)
[2020-03-04 17:54] LABS: BLOOD UREA NITROGEN,BUN 23 mg/dL (7.0-18.0); CARBON DIOXIDE,CO2 26.5 mmol/L (21.0-32.0); CHLORIDE,CL 95 mmol/L (98-107); GLUCOSE RANDOM 119 mg/dL (74-106); POTASSIUM,K 3.3 mmol/L (3.5-5.1); SODIUM,NA 132 mmol/L (136-148)
[2020-03-04] MEDS ORDERED: Azithromycin 250 MG Tab ONE (18:10)
[2020-03-04] MEDS ORDERED: Azithromycin 250 MG Tab PO STA (18:12)
[2020-03-04 18:19] VITALS: BP 129/68; PULSE 59
== END 2020-03-04 18:25 | disposition home or self-care (01) ==
LOC: MW.ED 16:28
DX: U07.1 COVID-19 (principal); J12.89 Other viral pneumonia; I10 Essential (primary) hypertension; N40.0 Benign prostatic hyperplasia without lower urinary tract symptoms; F32.9 Major depressive disorder, single episode, unspecified; E66.9 Obesity, unspecified; Z68.41 Body mass index [BMI] 40.0-44.9, adult; Z88.5 Allergy status to narcotic agent; Z79.82 Long term (current) use of aspirin; Z79.899 Other long term (current) drug therapy
CPT/HCPCS: 36415; 71045; 80053; 84484; 85025; 93005; 96374; 96375; 99285; A9270; J0696; J2405; J3490; J7030; 93010; 99284

== ENCOUNTER 2020-03-05 13:43 | Inpatient (IN) | payer MEDICARE, OTHER ==
[2020-03-05] MEDS ORDERED: Ondansetron 4 MG/2 ML SDV IVPUSH ONE (13:54)
[2020-03-05] MEDS ORDERED: Sodium Chloride 0.9% 10 ML Syringe FLUSH PRN (13:54)
[2020-03-05] MEDS ORDERED: Sodium Chloride 0.9% 2.5 ML Syringe FLUSH PRN (13:54)
[2020-03-05] MEDS ORDERED: Albuterol/Ipratropium 3.0-0.5 MG/3 ML Neb Soln NEB ONE (13:54)
[2020-03-05] MEDS ORDERED: Dexamethasone 10 MG/ML SDV IVPUSH ONE (13:54)
--- NOTE | 2020-03-05 14:32 | EDM.PDOC ---
ED HPI GENERAL MEDICAL PROBLEM - General Chief Complaint: Respiratory Problem Stated Complaint: TROUBLE BREATHING Time Seen by Provider: 03/05/20 13:44 Source of Information: Reports: Patient History Limitations: Reports: No Limitations - History of Present Illness INITIAL COMMENTS - FREE TEXT/NARRATIVE: History of present illness: [Patient is 64-year-old male with a previous diagnosis of Covid, I saw him yesterday for shortness of breath and cough. His work-up at that time was reassuring and he was not hypoxic. Chest x-ray showed possible worsening pneumonia. I gave him a dose of Rocephin along with oral azithromycin. Patient comes back today saying that he does not feel any better, concerned about lack of oxygen at home and feeling fatigued. Denies chest pain. Denies any acute or abrupt worsening of symptoms, just states that generally does not feel like he is improving at home.] Review of systems: As per history of present illness and below otherwise all systems reviewed and negative. Past medical history: As per history of present illness and as reviewed below otherwise noncontributory. Surgical history: As per history of present illness and as reviewed below otherwise noncontributory. Social history: No reported history of drug or alcohol abuse. Family history: As per history of present illness and as reviewed below otherwise noncontribu tory. Physical exam: General: Awake, alert, no acute distress, A&O X3. HEENT: Atraumatic, normocephalic, pupils reactive, negative for conjunctival pallor or scleral icterus, mucous membranes moist, throat clear, neck supple, nontender, trachea midline. Lungs: Clear to auscultation, breath sounds equal bilaterally, chest nontender. Heart: RRR, normal S1S2, no JVD. Abdomen: Soft, nondistended, nontender. Negative for masses or hepatosplenomegaly. Negative for costovertebral tenderness. Pelvis: Stable nontender. Genitourinary: Deferred. Rectal: Deferred. Extremities: Atraumatic, no edema, Neurovascular unremarkable. Neuro: Motor and sensory grossly intact throughout. Exam nonfocal. Diagnostics: [] Therapeutics: [] Impression: [] Plan: [] Definitive disposition and diagnosis as appropriate pending reevaluation and review of above. - Related Data Allergies Allergy/AdvReac Type Severity Reaction Status Date / Time hydromorphone Allergy Hives Verified 03/04/20 16:34 Home Meds: Home Meds Venlafaxine [Effexor] 75 mg PO DAILY 08/16/14 [History] Multivitamin [Multivitamins] 1 tab PO DAILY 09/27/16 [History] Losartan Potassium 100 mg PO DAILY 05/21/19 [History] Tamsulosin HCl 0.4 mg PO DAILY 05/21/19 [History] hydroCHLOROthiazide [Hydrochlorothiazide] 25 mg PO DAILY 05/21/19 [History] Aspirin 81 mg PO DAILY #30 tab.chew 05/22/19 [Rx] Rosuvastatin [Crestor] 10 mg PO BEDTIME #30 tablet 05/22/19 [Rx] predniSONE [Prednisone] 50 mg PO DAILY #5 tablet 02/28/20 [Rx] Amoxicillin/Potassium Clav [Augmentin 875-125 Tablet] 1 each PO BID #14 tablet 03/04/20 [Rx] Past Medical History HEENT History: Reports: Hard of Hearing Other HEENT History: wears glasses Cardiovascular History: Reports: Hypertension Respiratory History: Reports: Sleep Apnea Other Respiratory History: uses CPAP Gastrointestinal History: Reports: Colon Polyp Genitourinary History: Reports: BPH Other Genitourinary History: recently on antibiotic for prostate Musculoskeletal History: Reports: Back Pain, Chronic, Fracture Other Musculoskeletal History: hx of fx right arm Neurological History: Reports: None Psychiatric History: Reports: Depression Endocrine/Metabolic History: Reports: Obesity/BMI 30+ Hematologic History: Reports: None Immunologic History: Reports: None Oncologic (Cancer) History: Reports: None Dermatologic History: Reports: None - Infectious Disease History Infectious Disease History: Reports: Chicken Pox, Measles, Mumps, Novel C oronavirus Other Infectious Disease History: Chicken Pox as a child - Past Surgical History Head Surgeries/Procedures: Reports: None HEENT Surgical History: Reports: Tonsillectomy Other Cardiovascular Surgeries/Procedures: hx cardiac cath GI Surgical History: Reports: Colonoscopy Male Surgical History: Reports: TURP-Transurethral Resection of Prostate Musculoskeletal Surgical History: Reports: Knee Replacement, Other (See Below) Other Musculoskeletal Surgeries/Procedures:: hx of foot reconstruction, hx of surgery on right wrist- no hardware Social & Family History - Family History Family Medical History: Noncontributory GI: Reports: Cirrhosis - Tobacco Use Tobacco Use Status *Q: Former Tobacco User Used Tobacco, but Quit: Yes Month/Year Tobacco Last Used: 2009 - Caffeine Use Caffeine Use: Reports: None Caffeine Use Comment: 2 cups of coffee daily and tea accassionally - Recreational Drug Use Recreational Drug Use: No - Living Situation & Occupation Living situation: Reports: Occupation: Employed ED ROS GENERAL - Review of Systems Review Of Systems: Comprehensive ROS is negative, except as noted in HPI. ED EXAM, GENERAL - Physical Exam Exam: See Below (see h and p) #1 Interpretation EKG Date: 03/05/20 Time: 14:28 Rhythm: NSR Rate (Beats/Min): 58 [place]: Normal P-Wave: Present QRS: Normal ST-T: Normal QT: Normal EKG Interpretation Comments: sinus isidro Course - Vital Signs Text/Narrative:: Patient is feeling better after eating supplemental oxygen and a DuoNeb treatment. I also gave him steroids and antibiotics. He will be admitted for his Covid pneumonia, continued oxygen support, otherwise he was nontoxic and stable at the time of admission. Last Recorded V/S: Last Vital Signs Temp 35.6 C L 03/05/20 14:40 Pulse 63 03/05/20 14:40 Resp 18 03/05/20 14:40 BP 109/69 03/05/20 14:40 Pulse Ox 94 L 03/05/20 14:40 - Orders/Labs/Meds Orders: Active Orders 24 hr Category Date Time Status Patient Status [ADT] Routine ADT 03/05/20 16:02 Active EKG 12 Lead [EKG Documentation Completion] [RC] STAT Care 03/05/20 14:00 Active Piperacillin/Tazobactam [Piperacil-Tazobact] 4.5 gm Med 03/05/20 15:41 Active Sodium Chloride 0.9% [Normal Saline] 100 ml IV ONETIME Sodium Chloride 0.9% [Saline Flush] Med 03/05/20 13:54 Active 10 ml FLUSH ASDIRECTED PRN Sodium Chloride 0.9% [Saline Flush] Med 03/05/20 13:54 Active 2.5 ml FLUSH ASDIRECTED PRN Saline Lock Insert [OM.PC] Stat Oth 03/05/20 13:54 Ordered Medication Orders Piperacillin Sod/Tazobactam (Sod 4.5 gm/ Sodium Chloride) 100 mls @ 100 mls/hr IV ONETIME ONE Stop: 03/05/20 16:40 Sodium Chloride (Saline Flush) 10 ml FLUSH ASDIRECTED PRN PRN Reason: Keep Vein Open Last Admin: 03/05/20 15:14 Dose: 10 ml Documented by: DEBBIE Sodium Chloride (Saline Flush) 2.5 ml FLUSH ASDIRECTED PRN PRN Reason: Keep Vein Open Last Admin: 03/05/20 15:14 Dose: 2.5 ml Documented by: DEBBIE Labs: Laboratory Tests 03/05/20 03/05/20 Range/Units 15:10 15:10 WBC 6.19 (4.0-11.0) K/uL RBC 5.76 (4.50-5.90) M/uL Hgb 16.9 (13.0-17.0) g/dL Hct 49.9 (38.0-50.0) % MCV 86.6 (80.0-98.0) fL MCH 29.3 (27.0-32.0) pg MCHC 33.9 (31.0-37.0) g/dL RDW Std Deviation 44.8 (28.0-62.0) fl RDW Coeff of Komal 14 (11.0-15.0) % Plt Count 113 L (150-400) K/uL MPV 10.90 (7.40-12.00) fL Neut % (Auto) 67.0 (48.0-80.0) % Lymph % (Auto) 18.1 (16.0-40.0) % [place] % (Auto) 14.9 (0.0-15.0) % Eos % (Auto) 0.0 (0.0-7.0) % Baso % (Auto) 0.0 (0.0-1.5) % Neut # (Auto) 4.2 (1.4-5.7) K/uL Lymph # (Auto) 1.1 (0.6-2.4) K/uL [place] # (Auto) 0.9 H (0.0-0.8) K/uL Eos # (Auto) 0.0 (0.0-0.7) K/uL Baso # (Auto) 0.0 (0.0-0.1) K/uL Nucleated RBC % 0.0 /100WBC Nucleated RBCs # 0 K/uL Sodium 133 L (136-148) mmol/L Potassium 3.3 L (3.5-5.1) mmol/L Chloride 97 L (98-107) mmol/L Carbon Dioxide 23.8 (21.0-32.0) mmol/L BUN 22 H (7.0-18.0) mg/dL Creatinine 1.2 (0.8-1.3) mg/dL Est Cr Clr Drug Dosing TNP Estimated GFR (MDRD) > 60.0 ml/min Glucose 94 (74-106) mg/dL Calcium 9.0 (8.5-10.1) mg/dL Total Bilirubin 0.8 (0.2-1.0) mg/dL AST 55 H (15-37) IU/L ALT 94 H (14-63) IU/L Alkaline Phosphatase 52 (46-116) U/L Troponin I < 0.050 (0.000-0.056) ng/mL Total Protein 7.2 (6.4-8.2) g/dL Albumin 3.6 (3.4-5.0) g/dL Globulin 3.6 (2.6-4.0) g/dL Albumin/Globulin Ratio 1.0 (0.9-1.6) Meds: Medications Generic Name Dose Route Start Last Admin Trade Name Freq PRN Reason Stop Dose Admin Piperacillin Sod/Tazobactam 100 mls @ 100 mls/hr 03/05/20 15:41 Sod 4.5 gm/ Sodium Chloride IV 03/05/20 16:40 ONETIME ONE Sodium Chloride 10 ml 03/05/20 13:54 03/05/20 15:14 Saline Flush FLUSH 10 ml ASDIRECTED PRN Administration Keep Vein Open Sodium Chloride 2.5 ml 03/05/20 13:54 03/05/20 15:14 Saline Flush FLUSH 2.5 ml ASDIRECTED PRN Administration Keep Vein Open Discontinued Medications Generic Name Dose Route Start Last Admin Trade Name Freq PRN Reason Stop Dose Admin Albuterol/Ipratropium 3 ml 03/05/20 13:54 03/05/20 15:14 Duoneb 3.0-0.5 Mg/3 Ml NEB 03/05/20 13:55 3 ml ONETIME ONE Administration Dexamethasone 10 mg 03/05/20 13:54 03/05/20 15:14 Decadron IVPUSH 03/05/20 13:55 10 mg ONETIME ONE Administration Ondansetron HCl 4 mg 03/05/20 13:54 03/05/20 15:14 Zofran IVPUSH 03/05/20 13:55 4 mg ONETIME ONE Administration Departure - Departure Time of Disposition: 16:02 Disposition: Admitted As Inpatient 65 Condition: Good Clinical Impression: COVID-19, Dyspnea - Discharge Information Referrals: Juanito Funes MD [Primary Care Provider] - Forms: ED Department Discharge Sepsis Event Note (ED) - Focused Exam Vital Signs: Vital Signs Temp Pulse Resp BP Pulse Ox 03/05/20 14:40 35.6 C L 63 18 109/69 94 L - My Orders Last 24 Hours: My Active Orders 03/05/20 13:54 Sodium Chloride 0.9% [Saline Flush] 10 ml FLUSH ASDIRECTED PRN Sodium Chloride 0.9% [Saline Flush] 2.5 ml FLUSH ASDIRECTED PRN Saline Lock Insert [OM.PC] Stat 03/05/20 14:00 EKG 12 Lead [EKG Documentation Completion] [RC] STAT 03/05/20 15:41 Piperacillin/Tazobactam [Piperacil-Tazobact] 4.5 gm Sodium Chloride 0.9% [Normal Saline] 100 ml IV ONETIME 03/05/20 16:02 Patient Status [ADT] Routine - Assessment/Plan Last 24 Hours: My Active Orders 03/05/20 13:54 Sodium Chloride 0.9% [Saline Flush] 10 ml FLUSH ASDIRECTED PRN Sodium Chloride 0.9% [Saline Flush] 2.5 ml FLUSH ASDIRECTED PRN Saline Lock Insert [OM.PC] Stat 03/05/20 14:00 EKG 12 Lead [EKG Documentation Completion] [RC] STAT 03/05/20 15:41 Piperacillin/Tazobactam [Piperacil-Tazobact] 4.5 gm Sodium Chloride 0.9% [Normal Saline] 100 ml IV ONETIME 03/05/20 16:02 Patient Status [ADT] Routine
--- NOTE | 2020-03-05 15:02 | CR ---
INDICATION: Dyspnea. COVID positive. COMPARISON: 04 March 2020. FINDINGS: Slight interval worsening of patchy disorganized airspace opacities in the mid to lower lungs bilaterally, slightly more prominent on the left. Findings compatible with progression of COVID pneumonia. Pulmonary vascularity is normal. No pneumothorax or effusion. Dictated by Jostin Pollard MD @ Mar 05 2020 3:00PM Signed by Dr. Jostin Pollard @ Mar 05 2020 3:01PM
[2020-03-05] MEDS ORDERED: Piperacillin/Tazobactam 4.5 GM in Sodium Chloride 0.9% 100 ML IV ONE (15:41)
[2020-03-05 15:53] LABS: BLOOD UREA NITROGEN,BUN 22 mg/dL (7.0-18.0); CARBON DIOXIDE,CO2 23.8 mmol/L (21.0-32.0); CHLORIDE,CL 97 mmol/L (98-107); GLUCOSE RANDOM 94 mg/dL (74-106); POTASSIUM,K 3.3 mmol/L (3.5-5.1); SODIUM,NA 133 mmol/L (136-148)
[2020-03-05] MEDS ORDERED: Potassium Chloride 20 MEQ Tab.ER PO ONE (16:54)
[2020-03-05] MEDS ORDERED: Ondansetron 4 MG/2 ML SDV IVPUSH PRN (16:55)
[2020-03-05] MEDS ORDERED: Pantoprazole 40 MG in Sodium Chloride 0.9% 10 ML IV ONE (16:55)
[2020-03-05] MEDS ORDERED: Albuterol/Ipratropium 4 GM Inhalation Spray INH PRN (16:55)
[2020-03-05] MEDS ORDERED: REMDESIVIR 200 MG in Sodium Chloride 0.9% 250 ML IV ONE (16:59)
[2020-03-05] MEDS ORDERED: Lactated Ringers 1,000 ML IV SCH (17:00)
--- NOTE | 2020-03-05 17:03 | PCM.HP.2 ---
H&P History of Present Illness - General Date of Service: 03/05/20 Admit Problem/Dx: Admission Diagnosis/Problem Admission Diagnosis/Problem Dyspnea - History of Present Illness Initial Comments - Free Text/Narative: This 64 year old male with pmh of HTN, dyslipidemia, PAUL with CPAP, TIA who comes in for worsening SOB, patient has a previous diagnosis of Covid, He was seen yesterday for shortness of breath and cough, he was not hypoxic, Chest x- ray showed possible worsening pneumonia. He received IV Rocephin and was discharged on oral azithromycin. Patient comes back today saying that he does not feel any better, has worsening cough, feeling fatigued and dehydrated. Denies chest pain, fever, chills, N/V. Patient was found to be hypoxic in low 90s. started on 2L oxygen. Admitted for hypoxia secondary to COVID. Headache Pain Score (Numeric/FACES): 4 Chest Pain Score (Numeric/FACES): 4 - Related Data Allergies/Adverse Reactions: Allergies Allergy/AdvReac Type Severity Reaction Status Date / Time hydromorphone Allergy Hives Verified 03/05/20 20:02 Home Medications: Home Meds Venlafaxine [Effexor] 75 mg PO DAILY 08/16/14 [History] Losartan Potassium 100 mg PO DAILY 05/21/19 [History] Tamsulosin HCl 0.4 mg PO DAILY 05/21/19 [History] hydroCHLOROthiazide [Hydrochlorothiazide] 25 mg PO DAILY 05/21/19 [History] Aspirin 81 mg PO DAILY #30 tab.chew 05/22/19 [Rx] Rosuvastatin [Crestor] 10 mg PO BEDTIME #30 tablet 05/22/19 [Rx] Albuterol/Ipratropium [Combivent Respimat] 1 inh INH Q4H PRN 30 Days #1 inhaler 03/08/20 [Rx] Codeine/guaiFENesin [Robitussin AC] 5 ml PO Q4H PRN 14 Days #1 cup 03/08/20 [Rx] Multivitamins [Tab-A-Bridget] 1 tab PO DAILY tablet 03/08/20 [Rx] dexAMETHasone [Dexamethasone] 6 mg PO DAILY 7 Days #7 tablet 03/08/20 [Rx] levoFLOXacin [Levaquin] 750 mg PO DAILY 9 Days #9 tab 03/08/20 [Rx] Past Medical History HEENT History: Reports: Hard of Hearing Other HEENT History: wears glasses Cardiovascular History: Reports: Hypertension Respiratory History: Reports: Sleep Apnea Other Respiratory History: uses CPAP Gastrointestinal History: Reports: Colon Polyp Genitourinary History: Reports: BPH Other Genitourinary History: recently on antibiotic for prostate Musculoskeletal History: Reports: Back Pain, Chronic, Fracture Other Musculoskeletal History: hx of fx right arm Neurological History: Reports: None Psychiatric History: Reports: Depression Endocrine/Metabolic History: Reports: Obesity/BMI 30+ Hematologic History: Reports: None Immunologic History: Reports: None Oncologic (Cancer) History: Reports: None Dermatologic History: Reports: None - Infectious Disease History Infectious Disease History: Reports: Chicken Pox, Measles, Mumps, Novel Coronav irus Other Infectious Disease History: Chicken Pox as a child - Past Surgical History Head Surgeries/Procedures: Reports: None HEENT Surgical History: Reports: Tonsillectomy Other Cardiovascular Surgeries/Procedures: hx cardiac cath GI Surgical History: Reports: Colonoscopy Male Surgical History: Reports: TURP-Transurethral Resection of Prostate Musculoskeletal Surgical History: Reports: Knee Replacement, Other (See Below) Other Musculoskeletal Surgeries/Procedures:: hx of foot reconstruction, hx of surgery on right wrist- no hardware Social & Family History - Family History Family Medical History: No Pertinent Family History GI: Reports: Cirrhosis - Tobacco Use Tobacco Use Status *Q: Former Tobacco User Used Tobacco, but Quit: Yes Month/Year Tobacco Last Used: 2009 - Caffeine Use Caffeine Use: Reports: None Caffeine Use Comment: 2 cups of coffee daily and tea accassionally - Recreational Drug Use Recreational Drug Use: No - Living Situation & Occupation Living situation: Reports: Occupation: Employed H&P Review of Systems - Review of Systems: Review Of Systems: See Below General: Reports: Malaise, Weakness, Fatigue. Denies: Fever, Chills HEENT: Denies: Dysphasia, Ear Pain, Eye Pain Pulmonary: Reports: Shortness of Breath, Cough. Denies: Wheezing, Pleuritic Chest Pain Cardiovascular: Reports: Dyspnea on Exertion. Denies: Palpitations, Orthopnea, PND, Syncope, Claudication Gastrointestinal: Reports: Anorexia. Denies: Abdominal Pain, Black Stool, Bloody Stool, Constipation, Diarrhea, Distension, Flatus Genitourinary: Denies: Frequency, Burning, Pain, Urgency Musculoskeletal: Denies: Shoulder Pain, Arm Pain, Back Pain Skin: Reports: Dryness. Denies: Mottled, Pallor Psychiatric: Denies: Depression, Mood Lability Exam - Exam Exam: See Below - Vital Signs Vital Signs: Last Vital Signs Temp 35.6 C L 03/05/20 14:40 Pulse 63 03/05/20 14:40 Resp 18 03/05/20 14:40 BP 109/69 03/05/20 14:40 Pulse Ox 94 L 03/05/20 14:40 - Exam Quality Assessment: Supplemental Oxygen General: Alert, Oriented Neck: Trachea Midline Lungs: Clear to Auscultation, Normal Respiratory Effort, Decreased Breath Sounds Cardiovascular: Regular Rate, Regular Rhythm, Normal S1, Normal S2 - Patient Data Lab Results Last 24 hrs: Laboratory Results - last 24 hr 03/05/20 03/05/20 Range/Units 15:10 15:10 WBC 6.19 (4.0-11.0) K/uL RBC 5.76 (4.50-5.90) M/uL Hgb 16.9 (13.0-17.0) g/dL Hct 49.9 (38.0-50.0) % MCV 86.6 (80.0-98.0) fL MCH 29.3 (27.0-32.0) pg MCHC 33.9 (31.0-37.0) g/dL RDW Std Deviation 44.8 (28.0-62.0) fl RDW Coeff of Komal 14 (11.0-15.0) % Plt Count 113 L (150-400) K/uL MPV 10.90 (7.40-12.00) fL Neut % (Auto) 67.0 (48.0-80.0) % Lymph % (Auto) 18.1 (16.0-40.0) % [place] % (Auto) 14.9 (0.0-15.0) % Eos % (Auto) 0.0 (0.0-7.0) % Baso % (Auto) 0.0 (0.0-1.5) % Neut # (Auto) 4.2 (1.4-5.7) K/uL Lymph # (Auto) 1.1 (0.6-2.4) K/uL [place] # (Auto) 0.9 H (0.0-0.8) K/uL Eos # (Auto) 0.0 (0.0-0.7) K/uL Baso # (Auto) 0.0 (0.0-0.1) K/uL Nucleated RBC % 0.0 /100WBC Nucleated RBCs # 0 K/uL Sodium 133 L (136-148) mmol/L Potassium 3.3 L (3.5-5.1) mmol/L Chloride 97 L (98-107) mmol/L Carbon Dioxide 23.8 (21.0-32.0) mmol/L BUN 22 H (7.0-18.0) mg/dL Creatinine 1.2 (0.8-1.3) mg/dL Est Cr Clr Drug Dosing TNP Estimated GFR (MDRD) > 60.0 ml/min Glucose 94 (74-106) mg/dL Calcium 9.0 (8.5-10.1) mg/dL Total Bilirubin 0.8 (0.2-1.0) mg/dL AST 55 H (15-37) IU/L ALT 94 H (14-63) IU/L Alkaline Phosphatase 52 (46-116) U/L Troponin I < 0.050 (0.000-0.056) ng/mL Total Protein 7.2 (6.4-8.2) g/dL Albumin 3.6 (3.4-5.0) g/dL Globulin 3.6 (2.6-4.0) g/dL Albumin/Globulin Ratio 1.0 (0.9-1.6) Result Diagrams: 03/08/20 06:35 03/08/20 06:35 Sepsis Event Note - Evaluation Sepsis Screening Result: No Definite Risk - Focused Exam Vital Signs: Vital Signs Temp Pulse Resp BP Pulse Ox 03/05/20 14:40 35.6 C L 63 18 109/69 94 L - Problem List (1) Hypoxia SNOMED Code(s): 250364478 ICD Code: R09.02 - HYPOXEMIA Status: Acute Current Visit: Yes (2) COVID-19 SNOMED Code(s): 408057809 ICD Code: U07.1 - COVID-19 Status: Acute Current Visit: Yes (3) Transient ischemic attack (TIA) SNOMED Code(s): 855914888 ICD Code: G45.9 - TRANSIENT CEREBRAL ISCHEMIC ATTACK, UNSPECIFIED Status: Acute Current Visit: No (4) Dyslipidemia SNOMED Code(s): 027182617 ICD Code: E78.5 - HYPERLIPIDEMIA, UNSPECIFIED Status: Chronic Current Visit: No (5) HTN (hypertension) SNOMED Code(s): 54424304 ICD Code: I10 - ESSENTIAL (PRIMARY) HYPERTENSION Status: Chronic Current Visit: No Qualifiers: Hypertension type: essential hypertension Qualified Code(s): I10 - Essential (primary) hypertension Problem List Initiated/Reviewed/Updated: Yes Orders Last 24hrs: Active Orders 24 hr Category Date Time Status Patient Status [ADT] Routine ADT 03/05/20 16:02 Active Ambulate [RC] ASDIRECTED Care 03/05/20 16:55 Ordered Antiembolic Devices [RC] PER UNIT ROUTINE Care 03/05/20 16:56 Ordered EKG 12 Lead [EKG Documentation Completion] [RC] STAT Care 03/05/20 14:00 Active Oxygen Therapy [RC] PRN Care 03/05/20 16:55 Ordered Pulse Oximetry [RC] PRN Care 03/05/20 16:55 Ordered RT Post Treatment Assessment [RC] Click to Edit Care 03/05/20 16:58 Ordered RT Pre-Treatment Assessment [RC] Click to Edit Care 03/05/20 16:58 Ordered VTE/DVT Education [RC] PER UNIT ROUTINE Care 03/05/20 16:55 Ordered Vital Signs [RC] Q4H Care 03/05/20 16:55 Ordered Heart Healthy Diet [DIET] Diet 03/05/20 Dinner Ordered CBC WITH AUTO DIFF [HEME] AM Lab 03/06/20 05:11 Ordered CMP [COMPREHENSIVE METABOLIC PN,CMP] [CHEM] AM Lab 03/06/20 05:11 Ordered MAGNESIUM [CHEM] AM Lab 03/06/20 05:11 Ordered PHOSPHORUS [CHEM] AM Lab 03/06/20 05:11 Ordered Acetaminophen [TylenoL] Med 03/05/20 16:55 Ordered 650 mg PO Q4H PRN Albuterol/Ipratropium [Combivent Respimat] Med 03/05/20 16:55 Ordered See Dose Instructions INH Q4H PRN Enoxaparin [Lovenox] Med 03/05/20 17:00 Ordered 40 mg SUBCUT Q24H Lactated Ringers [Ringers, Lactated] 1,000 ml Med 03/05/20 17:00 Active IV ASDIRECTED Ondansetron [Zofran] Med 03/05/20 16:55 Ordered 4 mg IVPUSH Q4H PRN Remdesivir (Eua) [Remdesivir (EUA)] 100 mg Med 03/06/20 09:00 Ordered Sodium Chloride 0.9% [Normal Saline] 100 ml IV Q24H Sodium Chloride 0.9% [Saline Flush] Med 03/05/20 13:54 Active 10 ml FLUSH ASDIRECTED PRN Sodium Chloride 0.9% [Saline Flush] Med 03/05/20 13:54 Active 2.5 ml FLUSH ASDIRECTED PRN dexAMETHasone Med 03/06/20 09:00 Ordered 6 mg PO DAILY Saline Lock Insert [OM.PC] Stat Oth 03/05/20 13:54 Ordered Sequential Compression Device [OM.PC] Per Unit Routine Oth 03/05/20 16:55 Ordered Resuscitation Status Routine Resus Stat 03/05/20 16:55 Ordered Medication Orders Acetaminophen (Tylenol) 650 mg PO Q4H PRN PRN Reason: Pain (Mild 1-3)/fever Albuterol/Ipratropium (Combivent Respimat) 0 gm INH Q4H PRN PRN Reason: Dyspnea Dexamethasone (Dexamethasone) 6 mg PO DAILY [facility] Enoxaparin Sodium (Lovenox) 40 mg SUBCUT Q24H [facility] Lactated Ringer's (Ringers, Lactated) 1,000 mls @ 125 mls/hr IV ASDIRECTED [facility] Stop: 03/06/20 05:00 Remdesivir 100 mg/ Sodium (Chloride) 100 mls @ 100 mls/hr IV Q24H [facility] Stop: 03/09/20 09:59 Ondansetron HCl (Zofran) 4 mg IVPUSH Q4H PRN PRN Reason: Nausea/Vomiting Sodium Chloride (Saline Flush) 10 ml FLUSH ASDIRECTED PRN PRN Reason: Keep Vein Open Last Admin: 03/05/20 15:14 Dose: 10 ml Documented by: DEBBIE Sodium Chloride (Saline Flush) 2.5 ml FLUSH ASDIRECTED PRN PRN Reason: Keep Vein Open Last Admin: 03/05/20 15:14 Dose: 2.5 ml Documented by: [email or web address] Assessment/Plan Comment:: 64 y/o M admitted for Covid-19 PNA start oxygen, Lovenox, dexamethasone, remdesivir monitor and replete electrolytes start iv fluids patient is dehydrated, stop in AM
[2020-03-05] MEDS ORDERED: Piperacillin/Tazobactam 4.5 GM AdvVial ONE ×2 (17:38→17:52)
[2020-03-05] MEDS ORDERED: Sodium Chloride 0.9% 100 ML ONE ×2 (17:40→17:52)
[2020-03-05] MEDS: Enoxaparin 40 MG/0.4 ML Syringe SUBCUT SCH (17:42)
[2020-03-05] MEDS: Codeine/guaiFENesin 10-100 MG/5 ML Syrup 5 ML Cup PO PRN (19:59)
[2020-03-05] MEDS: Acetaminophen 325 MG Tab PO PRN (19:59)
[2020-03-05] MEDS: Rosuvastatin 10 MG Tab PO SCH (20:09)
[2020-03-05] MEDS: LORazepam 1 MG Tab PO PRN (20:46)
[2020-03-06 06:18] LABS: CARBON DIOXIDE,CO2 26.1 mmol/L (21.0-32.0); POTASSIUM,K 3.6 mmol/L (3.5-5.1)
[2020-03-06] MEDS ORDERED: Piperacillin/Tazobactam 3.375 GM in Sodium Chloride 0.9% 50 ML IV SCH (09:00)
[2020-03-06] MEDS: Aspirin 81 MG Tab.Chew PO SCH (09:57)
[2020-03-06] MEDS: Multivitamin Tab PO SCH (09:58)
[2020-03-06] MEDS: Venlafaxine 75 MG Cap.ER PO SCH (09:58)
[2020-03-06] MEDS: Tamsulosin 0.4 MG Cap.ER PO SCH (09:58)
[2020-03-06] MEDS: Losartan 50 MG Tab PO SCH (09:58)
[2020-03-06] MEDS: Hydrochlorothiazide 25 MG Tab PO SCH (09:59)
[2020-03-06] MEDS: Dexamethasone 4 MG Tab PO SCH (10:00)
[2020-03-06] MEDS: Codeine/guaiFENesin 10-100 MG/5 ML Syrup 5 ML Cup PO PRN ×3 (10:01→20:00)
[2020-03-06] MEDS: REMDESIVIR 100 MG in Sodium Chloride 0.9% 100 ML IV SCH (10:41)
--- NOTE | 2020-03-06 11:48 | PCM.PN ---
<Jenny Mullen - Last Filed: 03/06/20 11:39> - General Info Date of Service: 03/06/20 Admission Dx/Problem (Free Text): Admission Diagnosis/Problem Admission Diagnosis/Problem Dyspnea Subjective Update: Pt is a 64 y/o Gent[place] admitted for known COVID with worsening s.o.b, cough, fatigue, dehydration. Was started on 2L NC, slept with CPAP machine overnight, this morning is sating well 94% on r.a. Was given fluids/electrolytes that have been appropriately repleted. Discontinued fluids today. There were no overnight events. This morning, he is stable, still coughing on room air. Denies chest pain, s.o.b, fever, chills. Had not had anything to eat as he did not have much of an appetite. Discussed trying some soft foods like mashed potatoes per pt's request. Functional Status: Reports: Urinating, Incentive Spirometry - Review of Systems General: Reports: No Symptoms HEENT: Reports: No Symptoms Pulmonary: Reports: No Symptoms Cardiovascular: Reports: No Symptoms Gastrointestinal: Reports: No Symptoms Genitourinary: Reports: No Symptoms Musculoskeletal: Reports: No Symptoms Skin: Reports: No Symptoms Neurological: Reports: No Symptoms Psychiatric: Reports: No Symptoms - Patient Data Vitals - Most Recent: Last Vital Signs Temp 97.2 F 03/06/20 03:34 Pulse 51 L 03/06/20 03:34 Resp 18 03/06/20 03:34 BP 138/83 03/06/20 09:58 Pulse Ox 94 L 03/06/20 03:34 Weight - Most Recent: 115.212 kg I&O - Last 24 Hours: Intake & Output 03/05/20 03/06/20 03/06/20 22:59 06:59 14:59 Intake Total 1000 Output Total 800 Balance 200 Lab Results Last 24 Hours: Laboratory Results - last 24 hr 03/05/20 03/05/20 03/06/20 Range/Units 15:10 15:10 00:10 WBC 6.19 (4.0-11.0) K/uL RBC 5.76 (4.50-5.90) M/uL Hgb 16.9 (13.0-17.0) g/dL Hct 49.9 (38.0-50.0) % MCV 86.6 (80.0-98.0) fL MCH 29.3 (27.0-32.0) pg MCHC 33.9 (31.0-37.0) g/dL RDW Std Deviation 44.8 (28.0-62.0) fl RDW Coeff of Komal 14 (11.0-15.0) % Plt Count 113 L (150-400) K/uL MPV 10.90 (7.40-12.00) fL Neut % (Auto) 67.0 (48.0-80.0) % Lymph % (Auto) 18.1 (16.0-40.0) % [place] % (Auto) 14.9 (0.0-15.0) % Eos % (Auto) 0.0 (0.0-7.0) % Baso % (Auto) 0.0 (0.0-1.5) % Neut # (Auto) 4.2 (1.4-5.7) K/uL Lymph # (Auto) 1.1 (0.6-2.4) K/uL [place] # (Auto) 0.9 H (0.0-0.8) K/uL Eos # (Auto) 0.0 (0.0-0.7) K/uL Baso # (Auto) 0.0 (0.0-0.1) K/uL Nucleated RBC % 0.0 /100WBC Nucleated RBCs # 0 K/uL Sodium 133 L (136-148) mmol/L Potassium 3.3 L (3.5-5.1) mmol/L Chloride 97 L (98-107) mmol/L Carbon Dioxide 23.8 (21.0-32.0) mmol/L BUN 22 H (7.0-18.0) mg/dL Creatinine 1.2 (0.8-1.3) mg/dL Est Cr Clr Drug Dosing TNP Estimated GFR (MDRD) > 60.0 ml/min Glucose 94 (74-106) mg/dL Calcium 9.0 (8.5-10.1) mg/dL Phosphorus (2.6-4.7) mg/dL Magnesium (1.8-2.4) mg/dL Total Bilirubin 0.8 (0.2-1.0) mg/dL AST 55 H (15-37) IU/L ALT 94 H (14-63) IU/L Alkaline Phosphatase 52 (46-116) U/L Troponin I < 0.050 (0.000-0.056) ng/mL Total Protein 7.2 (6.4-8.2) g/dL Albumin 3.6 (3.4-5.0) g/dL Globulin 3.6 (2.6-4.0) g/dL Albumin/Globulin Ratio 1.0 (0.9-1.6) Urine Color YELLOW Urine Appearance CLEAR Urine pH 6.0 (5.0-8.0) Ur Specific [place] 1.015 (1.001-1.035) Urine Protein NEGATIVE (NEGATIVE) mg/dL Urine Glucose (UA) NEGATIVE (NEGATIVE) mg/dL Urine Ketones TRACE H (NEGATIVE) mg/dL Urine Occult Blood NEGATIVE (NEGATIVE) Urine Nitrite NEGATIVE (NEGATIVE) Urine Bilirubin NEGATIVE (NEGATIVE) Urine Urobilinogen 0.2 (<2.0) EU/dL Ur Leukocyte Esterase NEGATIVE (NEGATIVE) 03/06/20 03/06/20 Range/Units 05:45 05:45 WBC 2.63 L (4.0-11.0) K/uL RBC 5.39 (4.50-5.90) M/uL Hgb 15.6 (13.0-17.0) g/dL Hct 46.6 (38.0-50.0) % MCV 86.5 (80.0-98.0) fL MCH 28.9 (27.0-32.0) pg MCHC 33.5 (31.0-37.0) g/dL RDW Std Deviation 44.1 (28.0-62.0) fl RDW Coeff of [place] 14 (11.0-15.0) % Plt Count 124 L (150-400) K/uL MPV 10.60 (7.40-12.00) fL Neut % (Auto) 57.4 (48.0-80.0) % Lymph % (Auto) 23.6 (16.0-40.0) % [place] % (Auto) 19.0 H (0.0-15.0) % Eos % (Auto) 0.0 (0.0-7.0) % Baso % (Auto) 0.0 (0.0-1.5) % Neut # (Auto) 1.5 (1.4-5.7) K/uL Lymph # (Auto) 0.6 (0.6-2.4) K/uL [place] # (Auto) 0.5 (0.0-0.8) K/uL Eos # (Auto) 0.0 (0.0-0.7) K/uL Baso # (Auto) 0.0 (0.0-0.1) K/uL Nucleated RBC % 0.0 /100WBC Nucleated RBCs # 0 K/uL Sodium 136 (136-148) mmol/L Potassium 3.6 (3.5-5.1) mmol/L Chloride 100 (98-107) mmol/L Carbon Dioxide 26.1 (21.0-32.0) mmol/L BUN 20 H (7.0-18.0) mg/dL Creatinine 1.3 (0.8-1.3) mg/dL Est Cr Clr Drug Dosing 51.12 Estimated GFR (MDRD) 55.4 ml/min Glucose 127 H (74-106) mg/dL Calcium 8.7 (8.5-10.1) mg/dL Phosphorus 3.5 (2.6-4.7) mg/dL Magnesium 2.1 (1.8-2.4) mg/dL Total Bilirubin 0.6 (0.2-1.0) mg/dL AST 43 H (15-37) IU/L ALT 75 H (14-63) IU/L Alkaline Phosphatase 47 (46-116) U/L Troponin I (0.000-0.056) ng/mL Total Protein 6.7 (6.4-8.2) g/dL Albumin 3.2 L (3.4-5.0) g/dL Globulin 3.5 (2.6-4.0) g/dL Albumin/Globulin Ratio 0.9 (0.9-1.6) Urine Color Urine Appearance Urine pH (5.0-8.0) Ur Specific [place] (1.001-1.035) Urine Protein (NEGATIVE) mg/dL Urine Glucose (UA) (NEGATIVE) mg/dL Urine Ketones (NEGATIVE) mg/dL Urine Occult Blood (NEGATIVE) Urine Nitrite (NEGATIVE) Urine Bilirubin (NEGATIVE) Urine Urobilinogen (<2.0) EU/dL Ur Leukocyte Esterase (NEGATIVE) Med Orders - Current: Current Medications Acetaminophen (Tylenol) 650 mg PO Q4H PRN PRN Reason: Pain (Mild 1-3)/fever Last Admin: 03/05/20 19:59 Dose: 650 mg Documented by: Albuterol/Ipratropium (Combivent Respimat) 0 gm INH Q4H PRN PRN Reason: Dyspnea Aspirin (Aspirin) 81 mg PO DAILY [facility] Last Admin: 03/06/20 09:57 Dose: 81 mg Documented by: Dexamethasone (Dexamethasone) 6 mg PO DAILY [facility] Last Admin: 03/06/20 10:00 Dose: 6 mg Documented by: Enoxaparin Sodium (Lovenox) 40 mg SUBCUT Q24H [facility] Last Admin: 03/05/20 17:42 Dose: 40 mg Documented by: Guaifenesin/Codeine Phosphate (Robitussin Ac) 5 ml PO Q4H PRN PRN Reason: Cough Last Admin: 03/06/20 10:01 Dose: 5 ml Documented by: Hydrochlorothiazide (Hydrochlorothiazide) 25 mg PO DAILY [facility] Last Admin: 03/06/20 09:59 Dose: 25 mg Documented by: Remdesivir 100 mg/ Sodium (Chloride) 100 mls @ 100 mls/hr IV Q24H [facility] Stop: 03/09/20 09:59 Last Admin: 03/06/20 10:41 Dose: 100 mls/hr Documented by: Piperacillin Sod/Tazobactam (Sod 3.375 gm/ Sodium Chloride) 50 mls @ 100 mls/hr IV Q8H [facility] Last Admin: 03/06/20 09:51 Dose: 100 mls/hr Documented by: Levofloxacin/Dextrose 750 mg/ (Premix) 150 mls @ 100 mls/hr IV Q24H [facility] Lorazepam (Ativan) 1 mg PO BEDTIME PRN PRN Reason: Insomnia Last Admin: 03/05/20 20:46 Dose: 1 mg Documented by: Losartan Potassium (Cozaar) 100 mg PO DAILY [facility] Last Admin: 03/06/20 09:58 Dose: 100 mg Documented by: Multivitamins/Minerals/Vitamin C (Tab-A-Bridget) 1 tab PO DAILY [facility] Last Admin: 03/06/20 09:58 Dose: 1 tab Documented by: Ondansetron HCl (Zofran) 4 mg IVPUSH Q4H PRN PRN Reason: Nausea/Vomiting Rosuvastatin Calcium (Crestor) 10 mg PO BEDTIME [facility] Last Admin: 03/05/20 20:09 Dose: 10 mg Documented by: Sodium Chloride (Saline Flush) 10 ml FLUSH ASDIRECTED PRN PRN Reason: Keep Vein Open Last Admin: 03/05/20 15:14 Dose: 10 ml Documented by: Sodium Chloride (Saline Flush) 2.5 ml FLUSH ASDIRECTED PRN PRN Reason: Keep Vein Open Last Admin: 03/05/20 15:14 Dose: 2.5 ml Documented by: Tamsulosin HCl (Flomax) 0.4 mg PO DAILY [facility] Last Admin: 03/06/20 09:58 Dose: 0.4 mg Documented by: Venlafaxine HCl (Effexor Xr) 75 mg PO DAILY [facility] Last Admin: 03/06/20 09:58 Dose: 75 mg Documented by: Discontinued Medications Albuterol/Ipratropium (Duoneb 3.0-0.5 Mg/3 Ml) 3 ml NEB ONETIME ONE Stop: 03/05/20 13:55 Last Admin: 03/05/20 15:14 Dose: 3 ml Documented by: Dexamethasone (Decadron) 10 mg IVPUSH ONETIME ONE Stop: 03/05/20 13:55 Last Admin: 03/05/20 15:14 Dose: 10 mg Documented by: Piperacillin Sod/Tazobactam (Sod 4.5 gm/ Sodium Chloride) 100 mls @ 100 mls/hr IV ONETIME ONE Stop: 03/05/20 16:40 Last Admin: 03/05/20 17:56 Dose: 100 mls/hr Documented by: Lactated Ringer's (Ringers, Lactated) 1,000 mls @ 125 mls/hr IV ASDIRECTED [facility] Stop: 03/06/20 05:00 Last Admin: 03/05/20 23:05 Dose: 125 mls/hr Documented by: Pantoprazole Sodium 40 mg/ (Sodium Chloride) 10 mls @ 300 mls/hr IV DAILY ONE Stop: 03/05/20 16:56 Last Admin: 03/05/20 17:43 Dose: 300 mls/hr Documented by: Remdesivir 200 mg/ Sodium (Chloride) 250 mls @ 250 mls/hr IV ONETIME ONE Stop: 03/05/20 17:00 Last Admin: 03/05/20 20:16 Dose: 250 mls/hr Documented by: Sodium Chloride (Normal Saline) Confirm Administered Dose 100 mls @ as directed .ROUTE .STK-MED ONE Stop: 03/05/20 17:41 Last Admin: 03/05/20 17:44 Dose: Not Given Documented by: Sodium Chloride (Normal Saline) Confirm Administered Dose 100 mls @ as directed .ROUTE .STK-MED ONE Stop: 03/05/20 17:53 Last Admin: 03/05/20 17:58 Dose: Not Given Documented by: Ondansetron HCl (Zofran) 4 mg IVPUSH ONETIME ONE Stop: 03/05/20 13:55 Last Admin: 03/05/20 15:14 Dose: 4 mg Documented by: Piperacillin Sod/Tazobactam Sod (Piperacil-Tazobact) Confirm Administered Dose 4.5 gm .ROUTE .STK-MED ONE Stop: 03/05/20 17:39 Last Admin: 03/05/20 17:41 Dose: Not Given Documented by: Piperacillin Sod/Tazobactam Sod (Piperacil-Tazobact) Confirm Administered Dose 4.5 gm .ROUTE .STK-MED ONE Stop: 03/05/20 17:53 Last Admin: 03/05/20 17:58 Dose: Not Given Documented by: Potassium Chloride (Klor-Con M20) 20 meq PO ONETIME ONE Stop: 03/05/20 16:55 Last Admin: 03/05/20 17:43 Dose: 20 meq Documented by: - Exam Quality Assessment: Supplemental Oxygen, DVT Prophylaxis General: Alert, Oriented, Cooperative, No Acute Distress HEENT: Pupils Equal, Pupils Reactive, EOMI, Mucous Membr. Moist/[place] Neck: Supple, Trachea Midline, No JVD. No: Lymphadenopathy Lungs: Normal Respiratory Effort, Rhonchi. No: Crackles, Rales, Stridor, Wheezing Cardiovascular: Regular Rate, Regular Rhythm, No Murmurs GI/Abdominal Exam: Normal Bowel Sounds, Soft, Non-Tender Extremities: Normal Inspection, Normal Range of Motion, No Pedal Edema, Normal Capillary Refill Peripheral Pulses: 2+: Radial (L), Radial (R), Dorsalis Pedis (L), Dorsalis Pedis (R) Skin: Warm, Dry Neurological: No New Focal Deficit Psy/Mental Status: Alert, Normal Affect, Normal Mood Sepsis Event Note - Evaluation Sepsis Screening Result: No Definite Risk - Focused Exam Vital Signs: Vital Signs Temp Pulse Resp BP BP Pulse Ox 03/06/20 09:58 138/83 03/06/20 03:34 97.2 F 51 L 18 124/74 94 L - Problem List & Annotations (1) Acute hypoxemic respiratory failure due to COVID-19 SNOMED Code(s): 332606920 Code(s): U07.1 - COVID-19; J96.01 - ACUTE RESPIRATORY FAILURE WITH HYPOXIA Status: Acute - Problem List Review Problem List Initiated/Reviewed/Updated: Yes - Plan Plan:: 64 y/o M admitted for covid PNA 1. AHRF 2/2 COVID 19: Initiated oxygen, lovenox 40mg Q, dexamethasone 6mg for 10 days, remdesivir 100mg total 4 days. Robitussin codeine for wet cough. D/C Zosyn and put pt. on Levaquin for worsening pneumonia infiltrates noted on recent chest X-ray. 2. Hyponatremia: resolved, trend daily, D/C fluids 3. Hypokalemia: resolved, trend daily, D/C fluids 4. PMHx: HTN, HLD, PAUL on CPAP, h/o TIA: resume home meds <Gely Gunter - Last Filed: 03/13/20 13:13> - Patient Data Vitals - Most Recent: Last Vital Signs Temp 36.4 C 03/08/20 11:19 Pulse 63 03/08/20 11:19 Resp 18 03/08/20 11:19 BP 119/70 03/08/20 11:19 Pulse Ox 93 L 03/08/20 11:19 Med Orders - Current: Current Medications Discontinued Medications Acetaminophen (Tylenol) 650 mg PO Q4H PRN PRN Reason: Pain (Mild 1-3)/fever Last Admin: 03/06/20 20:03 Dose: 650 mg Documented by: Albuterol/Ipratropium (Duoneb 3.0-0.5 Mg/3 Ml) 3 ml NEB ONETIME ONE Stop: 03/05/20 13:55 Last Admin: 03/05/20 15:14 Dose: 3 ml Documented by: Albuterol/Ipratropium (Combivent Respimat) 0 gm INH Q4H PRN PRN Reason: Dyspnea Aspirin (Aspirin) 81 mg PO DAILY [facility] Last Admin: 03/08/20 08:25 Dose: 81 mg Documented by: Dexamethasone (Decadron) 10 mg IVPUSH ONETIME ONE Stop: 03/05/20 13:55 Last Admin: 03/05/20 15:14 Dose: 10 mg Documented by: Dexamethasone (Dexamethasone) 6 mg PO DAILY [facility] Last Admin: 03/08/20 08:24 Dose: 6 mg Documented by: Enoxaparin Sodium (Lovenox) 40 mg SUBCUT Q24H [facility] Last Admin: 03/07/20 16:52 Dose: 40 mg Documented by: Guaifenesin/Codeine Phosphate (Robitussin Ac) 5 ml PO Q4H PRN PRN Reason: Cough Last Admin: 03/06/20 10:01 Dose: 5 ml Documented by: Guaifenesin/Codeine Phosphate (Robitussin Ac) 5 ml PO Q4H PRN PRN Reason: Cough Last Admin: 03/07/20 18:18 Dose: 5 ml Documented by: Hydrochlorothiazide (Hydrochlorothiazide) 25 mg PO DAILY [facility] Last Admin: 03/08/20 08:24 Dose: 25 mg Documented by: Piperacillin Sod/Tazobactam (Sod 4.5 gm/ Sodium Chloride) 100 mls @ 100 mls/hr IV ONETIME ONE Stop: 03/05/20 16:40 Last Admin: 03/05/20 17:56 Dose: 100 mls/hr Documented by: Lactated Ringer's (Ringers, Lactated) 1,000 mls @ 125 mls/hr IV ASDIRECTED [facility] Stop: 03/06/20 05:00 Last Admin: 03/05/20 23:05 Dose: 125 mls/hr Documented by: Pantoprazole Sodium 40 mg/ (Sodium Chloride) 10 mls @ 300 mls/hr IV DAILY ONE Stop: 03/05/20 16:56 Last Admin: 03/05/20 17:43 Dose: 300 mls/hr Documented by: Remdesivir 200 mg/ Sodium (Chloride) 250 mls @ 250 mls/hr IV ONETIME ONE Stop: 03/05/20 17:00 Last Admin: 03/05/20 20:16 Dose: 250 mls/hr Documented by: Remdesivir 100 mg/ Sodium (Chloride) 100 mls @ 100 mls/hr IV Q24H [facility] Stop: 03/09/20 09:59 Last Admin: 03/08/20 09:58 Dose: 100 mls/hr Documented by: Piperacillin Sod/Tazobactam (Sod 3.375 gm/ Sodium Chloride) 50 mls @ 100 mls/hr IV Q8H [facility] Last Admin: 03/06/20 09:51 Dose: 100 mls/hr Documented by: Sodium Chloride (Normal Saline) Confirm Administered Dose 100 mls @ as directed .ROUTE .STK-MED ONE Stop: 03/05/20 17:41 Last Admin: 03/05/20 17:44 Dose: Not Given Documented by: Sodium Chloride (Normal Saline) Confirm Administered Dose 100 mls @ as directed .ROUTE .STK-MED ONE Stop: 03/05/20 17:53 Last Admin: 03/05/20 17:58 Dose: Not Given Documented by: Levofloxacin/Dextrose 750 mg/ (Premix) 150 mls @ 100 mls/hr IV Q24H [facility] Last Admin: 03/08/20 11:11 Dose: 100 mls/hr Documented by: Lorazepam (Ativan) 1 mg PO BEDTIME PRN PRN Reason: Insomnia Last Admin: 03/07/20 18:17 Dose: 1 mg Documented by: Losartan Potassium (Cozaar) 100 mg PO DAILY [facility] Last Admin: 03/08/20 08:25 Dose: 100 mg Documented by: Multivitamins/Minerals/Vitamin C (Tab-A-Bridget) 1 tab PO DAILY [facility] Last Admin: 03/08/20 08:24 Dose: 1 tab Documented by: Ondansetron HCl (Zofran) 4 mg IVPUSH ONETIME ONE Stop: 03/05/20 13:55 Last Admin: 03/05/20 15:14 Dose: 4 mg Documented by: Ondansetron HCl (Zofran) 4 mg IVPUSH Q4H PRN PRN Reason: Nausea/Vomiting Piperacillin Sod/Tazobactam Sod (Piperacil-Tazobact) Confirm Administered Dose 4.5 gm .ROUTE .STK-MED ONE Stop: 03/05/20 17:39 Last Admin: 03/05/20 17:41 Dose: Not Given Documented by: Piperacillin Sod/Tazobactam Sod (Piperacil-Tazobact) Confirm Administered Dose 4.5 gm .ROUTE .STK-MED ONE Stop: 03/05/20 17:53 Last Admin: 03/05/20 17:58 Dose: Not Given Documented by: Potassium Chloride (Klor-Con M20) 20 meq PO ONETIME ONE Stop: 03/05/20 16:55 Last Admin: 03/05/20 17:43 Dose: 20 meq Documented by: Potassium Chloride (Klor-Con M20) 40 meq PO ONETIME ONE Stop: 03/07/20 10:29 Last Admin: 03/07/20 11:07 Dose: 40 meq Documented by: Potassium Chloride (Klor-Con M20) 40 meq PO ONETIME ONE Stop: 03/07/20 17:23 Last Admin: 03/07/20 18:26 Dose: Not Given Documented by: Potassium Chloride (Klor-Con M20) 40 meq PO ONETIME ONE Stop: 03/07/20 17:47 Last Admin: 03/07/20 18:07 Dose: 40 meq Documented by: Rosuvastatin Calcium (Crestor) 10 mg PO BEDTIME [facility] Last Admin: 03/07/20 20:46 Dose: Not Given Documented by: Sodium Chloride (Saline Flush) 10 ml FLUSH ASDIRECTED PRN PRN Reason: Keep Vein Open Last Admin: 03/05/20 15:14 Dose: 10 ml Documented by: Sodium Chloride (Saline Flush) 2.5 ml FLUSH ASDIRECTED PRN PRN Reason: Keep Vein Open Last Admin: 03/05/20 15:14 Dose: 2.5 ml Documented by: Tamsulosin HCl (Flomax) 0.4 mg PO DAILY [facility] Last Admin: 03/08/20 08:25 Dose: 0.4 mg Documented by: Venlafaxine HCl (Effexor Xr) 75 mg PO DAILY [facility] Last Admin: 03/08/20 08:24 Dose: 75 mg Documented by: - Problem List & Annotations (1) Hypoxia SNOMED Code(s): 433792016 Code(s): R09.02 - HYPOXEMIA Status: Acute (2) COVID-19 SNOMED Code(s): 730842068 Code(s): U07.1 - COVID-19 Status: Acute (3) Transient ischemic attack (TIA) SNOMED Code(s): 105554964 Code(s): G45.9 - TRANSIENT CEREBRAL ISCHEMIC ATTACK, UNSPECIFIED Status: Acute (4) Dyslipidemia SNOMED Code(s): 235793670 Code(s): E78.5 - HYPERLIPIDEMIA, UNSPECIFIED Status: Chronic (5) HTN (hypertension) SNOMED Code(s): 33220805 Code(s): I10 - ESSENTIAL (PRIMARY) HYPERTENSION Status: Chronic Qualifiers: Hypertension type: essential hypertension Qualified Code(s): I10 - Essential (primary) hypertension - Plan Plan:: I have seen and evaluated the patient and agree with the residents note unless specified in my note
[2020-03-06] MEDS: Levofloxacin/Dextrose 5%-Water 750 MG in Premix Bag 1 BAG IV SCH (11:50)
[2020-03-06] MEDS: Enoxaparin 40 MG/0.4 ML Syringe SUBCUT SCH (17:10)
[2020-03-06] MEDS: LORazepam 1 MG Tab PO PRN (20:00)
[2020-03-06] MEDS: Rosuvastatin 10 MG Tab PO SCH (20:00)
[2020-03-06] MEDS: Acetaminophen 325 MG Tab PO PRN (20:03)
[2020-03-07 07:20] LABS: BLOOD UREA NITROGEN,BUN 21 mg/dL (7.0-18.0); CARBON DIOXIDE,CO2 26.1 mmol/L (21.0-32.0); CHLORIDE,CL 102 mmol/L (98-107); GLUCOSE RANDOM 105 mg/dL (74-106); POTASSIUM,K 3.1 mmol/L (3.5-5.1); SODIUM,NA 137 mmol/L (136-148)
[2020-03-07] MEDS: REMDESIVIR 100 MG in Sodium Chloride 0.9% 100 ML IV SCH (08:54)
[2020-03-07] MEDS ORDERED: Potassium Chloride 20 MEQ Tab.ER PO ONE ×3 (10:28→17:46)
[2020-03-07] MEDS: Levofloxacin/Dextrose 5%-Water 750 MG in Premix Bag 1 BAG IV SCH (11:07)
--- NOTE | 2020-03-07 11:10 | PCM.PN ---
<Jenny Mullen - Last Filed: 03/07/20 11:04> - General Info Date of Service: 03/07/20 Admission Dx/Problem (Free Text): Admission Diagnosis/Problem Admission Diagnosis/Problem Dyspnea Subjective Update: Pt is a 64 y/o Gentleman admitted for known COVID 19 , was weaned to room air yesterday, states he is feeling better this morning and got better sleep. Continues to feel weak and shaky. Was seen and examined at bedside, resting comfortably on room air. Denied any chest pain, fever, chills, s.o.b. Still has intermittant cough but states the Robutussin AC has helped. All questions and concerns were addressed at bedside. Functional Status: Reports: Tolerating Diet - Review of Systems General: Reports: Weakness, Malaise (improved) HEENT: Reports: No Symptoms Pulmonary: Reports: Cough Cardiovascular: Reports: No Symptoms Gastrointestinal: Reports: No Symptoms Genitourinary: Reports: No Symptoms Musculoskeletal: Reports: No Symptoms Skin: Reports: No Symptoms Neurological: Reports: No Symptoms Psychiatric: Reports: No Symptoms - Patient Data Vitals - Most Recent: Last Vital Signs Temp 97.1 F 03/07/20 08:53 Pulse 55 L 03/07/20 08:53 Resp 20 03/07/20 08:53 BP 122/63 03/07/20 08:53 Pulse Ox 93 L 03/07/20 08:53 Weight - Most Recent: 115.212 kg I&O - Last 24 Hours: Intake & Output 03/06/20 03/07/20 03/07/20 22:59 06:59 14:59 Intake Total 1040 900 Output Total 500 600 Balance 540 300 Lab Results Last 24 Hours: Laboratory Results - last 24 hr 03/07/20 03/07/20 03/07/20 Range/Units 06:23 06:33 06:33 WBC 5.08 (4.0-11.0) K/uL RBC 5.43 (4.50-5.90) M/uL Hgb 15.7 (13.0-17.0) g/dL Hct 46.6 (38.0-50.0) % MCV 85.8 (80.0-98.0) fL MCH 28.9 (27.0-32.0) pg MCHC 33.7 (31.0-37.0) g/dL RDW Std Deviation 43.4 (28.0-62.0) fl RDW Coeff of Komal 14 (11.0-15.0) % Plt Count 148 L (150-400) K/uL MPV 10.50 (7.40-12.00) fL Add Manual Diff YES Neutrophils % (Manual) 58 (48.0-80.0) % Band Neutrophils % 3 % Lymphocytes % (Manual) 29 (16.0-40.0) % Monocytes % (Manual) 10 (0.0-15.0) % Nucleated RBC % 0.0 /100WBC Absolute Seg Neuts 2.9 (1.4-5.7) Band Neutrophils # 0.2 Lymphocytes # (Manual) 1.5 (0.6-2.4) Monocytes # (Manual) 0.5 (0.0-0.8) Nucleated RBCs # 0 K/uL Reactive Lymphocytes FEW Sodium 137 (136-148) mmol/L Potassium 3.1 L (3.5-5.1) mmol/L Chloride 102 (98-107) mmol/L Carbon Dioxide 26.1 (21.0-32.0) mmol/L BUN 21 H (7.0-18.0) mg/dL Creatinine 1.2 (0.8-1.3) mg/dL Est Cr Clr Drug Dosing 55.38 mL/min Estimated GFR (MDRD) > 60.0 ml/min Glucose 105 (74-106) mg/dL Calcium 8.9 (8.5-10.1) mg/dL Magnesium 2.1 (1.8-2.4) mg/dL Total Bilirubin 0.5 (0.2-1.0) mg/dL AST 35 (15-37) IU/L ALT 59 (14-63) IU/L Alkaline Phosphatase 44 L (46-116) U/L Total Protein 6.5 (6.4-8.2) g/dL Albumin 3.3 L (3.4-5.0) g/dL Globulin 3.2 (2.6-4.0) g/dL Albumin/Globulin Ratio 1.0 (0.9-1.6) Med Orders - Current: Current Medications Acetaminophen (Tylenol) 650 mg PO Q4H PRN PRN Reason: Pain (Mild 1-3)/fever Last Admin: 03/06/20 20:03 Dose: 650 mg Documented by: Albuterol/Ipratropium (Combivent Respimat) 0 gm INH Q4H PRN PRN Reason: Dyspnea Aspirin (Aspirin) 81 mg PO DAILY [facility] Last Admin: 03/06/20 09:57 Dose: 81 mg Documented by: Dexamethasone (Dexamethasone) 6 mg PO DAILY [facility] Last Admin: 03/06/20 10:00 Dose: 6 mg Documented by: Enoxaparin Sodium (Lovenox) 40 mg SUBCUT Q24H [facility] Last Admin: 03/06/20 17:10 Dose: 40 mg Documented by: Guaifenesin/Codeine Phosphate (Robitussin Ac) 5 ml PO Q4H PRN PRN Reason: Cough Last Admin: 03/06/20 20:00 Dose: 5 ml Documented by: Hydrochlorothiazide (Hydrochlorothiazide) 25 mg PO DAILY [facility] Last Admin: 03/06/20 09:59 Dose: 25 mg Documented by: Remdesivir 100 mg/ Sodium (Chloride) 100 mls @ 100 mls/hr IV Q24H [facility] Stop: 03/09/20 09:59 Last Admin: 03/07/20 08:54 Dose: 100 mls/hr Documented by: Levofloxacin/Dextrose 750 mg/ (Premix) 150 mls @ 100 mls/hr IV Q24H [facility] Last Admin: 03/06/20 11:50 Dose: 100 mls/hr Documented by: Lorazepam (Ativan) 1 mg PO BEDTIME PRN PRN Reason: Insomnia Last Admin: 03/06/20 20:00 Dose: 1 mg Documented by: Losartan Potassium (Cozaar) 100 mg PO DAILY [facility] Last Admin: 03/06/20 09:58 Dose: 100 mg Documented by: Multivitamins/Minerals/Vitamin C (Tab-A-Bridget) 1 tab PO DAILY [facility] Last Admin: 03/06/20 09:58 Dose: 1 tab Documented by: Ondansetron HCl (Zofran) 4 mg IVPUSH Q4H PRN PRN Reason: Nausea/Vomiting Rosuvastatin Calcium (Crestor) 10 mg PO BEDTIME [facility] Last Admin: 03/06/20 20:00 Dose: 10 mg Documented by: Sodium Chloride (Saline Flush) 10 ml FLUSH ASDIRECTED PRN PRN Reason: Keep Vein Open Last Admin: 03/05/20 15:14 Dose: 10 ml Documented by: Sodium Chloride (Saline Flush) 2.5 ml FLUSH ASDIRECTED PRN PRN Reason: Keep Vein Open Last Admin: 03/05/20 15:14 Dose: 2.5 ml Documented by: Tamsulosin HCl (Flomax) 0.4 mg PO DAILY [facility] Last Admin: 03/06/20 09:58 Dose: 0.4 mg Documented by: Venlafaxine HCl (Effexor Xr) 75 mg PO DAILY [facility] Last Admin: 03/06/20 09:58 Dose: 75 mg Documented by: Discontinued Medications Albuterol/Ipratropium (Duoneb 3.0-0.5 Mg/3 Ml) 3 ml NEB ONETIME ONE Stop: 03/05/20 13:55 Last Admin: 03/05/20 15:14 Dose: 3 ml Documented by: Dexamethasone (Decadron) 10 mg IVPUSH ONETIME ONE Stop: 03/05/20 13:55 Last Admin: 03/05/20 15:14 Dose: 10 mg Documented by: Guaifenesin/Codeine Phosphate (Robitussin Ac) 5 ml PO Q4H PRN PRN Reason: Cough Last Admin: 03/06/20 10:01 Dose: 5 ml Documented by: Piperacillin Sod/Tazobactam (Sod 4.5 gm/ Sodium Chloride) 100 mls @ 100 mls/hr IV ONETIME ONE Stop: 03/05/20 16:40 Last Admin: 03/05/20 17:56 Dose: 100 mls/hr Documented by: Lactated Ringer's (Ringers, Lactated) 1,000 mls @ 125 mls/hr IV ASDIRECTED [facility] Stop: 03/06/20 05:00 Last Admin: 03/05/20 23:05 Dose: 125 mls/hr Documented by: Pantoprazole Sodium 40 mg/ (Sodium Chloride) 10 mls @ 300 mls/hr IV DAILY ONE Stop: 03/05/20 16:56 Last Admin: 03/05/20 17:43 Dose: 300 mls/hr Documented by: Remdesivir 200 mg/ Sodium (Chloride) 250 mls @ 250 mls/hr IV ONETIME ONE Stop: 03/05/20 17:00 Last Admin: 03/05/20 20:16 Dose: 250 mls/hr Documented by: Piperacillin Sod/Tazobactam (Sod 3.375 gm/ Sodium Chloride) 50 mls @ 100 mls/hr IV Q8H [facility] Last Admin: 03/06/20 09:51 Dose: 100 mls/hr Documented by: Sodium Chloride (Normal Saline) Confirm Administered Dose 100 mls @ as directed .ROUTE .STK-MED ONE Stop: 03/05/20 17:41 Last Admin: 03/05/20 17:44 Dose: Not Given Documented by: Sodium Chloride (Normal Saline) Confirm Administered Dose 100 mls @ as directed .ROUTE .STK-MED ONE Stop: 03/05/20 17:53 Last Admin: 03/05/20 17:58 Dose: Not Given Documented by: Ondansetron HCl (Zofran) 4 mg IVPUSH ONETIME ONE Stop: 03/05/20 13:55 Last Admin: 03/05/20 15:14 Dose: 4 mg Documented by: Piperacillin Sod/Tazobactam Sod (Piperacil-Tazobact) Confirm Administered Dose 4.5 gm .ROUTE .STK-MED ONE Stop: 03/05/20 17:39 Last Admin: 03/05/20 17:41 Dose: Not Given Documented by: Piperacillin Sod/Tazobactam Sod (Piperacil-Tazobact) Confirm Administered Dose 4.5 gm .ROUTE .STK-MED ONE Stop: 03/05/20 17:53 Last Admin: 03/05/20 17:58 Dose: Not Given Documented by: Potassium Chloride (Klor-Con M20) 20 meq PO ONETIME ONE Stop: 03/05/20 16:55 Last Admin: 03/05/20 17:43 Dose: 20 meq Documented by: Potassium Chloride (Klor-Con M20) 40 meq PO ONETIME ONE Stop: 03/07/20 10:29 - Exam Quality Assessment: DVT Prophylaxis General: Alert, Oriented, Cooperative, No Acute Distress HEENT: Pupils Equal, Pupils Reactive, EOMI Neck: Supple, Trachea Midline, No JVD Lungs: Normal Respiratory Effort, Decreased Breath Sounds, Rales Cardiovascular: Regular Rate, Regular Rhythm GI/Abdominal Exam: Normal Bowel Sounds, Soft, Non-Tender Back Exam: Normal Inspection, Full Range of Motion Peripheral Pulses: 2+: Radial (L), Radial (R), Dorsalis Pedis (L), Dorsalis Pedis (R) Skin: Warm, Dry, Intact Neurological: No New Focal Deficit Psy/Mental Status: Alert, Normal Affect, Normal Mood Sepsis Event Note - Evaluation Sepsis Screening Result: No Definite Risk - Focused Exam Vital Signs: Vital Signs Temp Pulse Resp BP Pulse Ox 03/07/20 08:53 97.1 F 55 L 20 122/63 93 L 03/07/20 03:54 97.5 F 60 18 127/56 L 95 - Problem List & Annotations (1) Acute hypoxemic respiratory failure due to COVID-19 SNOMED Code(s): 314093222 Code(s): U07.1 - COVID-19; J96.01 - ACUTE RESPIRATORY FAILURE WITH HYPOXIA Status: Acute (2) Hypokalemia SNOMED Code(s): 26997391 Code(s): E87.6 - HYPOKALEMIA Status: Acute - Problem List Review Problem List Initiated/Reviewed/Updated: Yes - My Orders Last 24 Hours: My Active Orders 03/06/20 11:44 Codeine/guaiFENesin [Robitussin AC] 5 ml PO Q4H PRN 03/07/20 10:57 Admission Status [Patient Status] [ADT] Routine 03/07/20 15:00 POTASSIUM,K [CHEM] Routine 03/08/20 05:11 CBC WITH AUTO DIFF [HEME] AM CMP [COMPREHENSIVE METABOLIC PN,CMP] [CHEM] AM 03/09/20 05:11 CBC WITH AUTO DIFF [HEME] AM CMP [COMPREHENSIVE METABOLIC PN,CMP] [CHEM] AM 03/10/20 05:11 CBC WITH AUTO DIFF [HEME] AM CMP [COMPREHENSIVE METABOLIC PN,CMP] [CHEM] AM - Plan Plan:: 64 y/o M admitted for covid AHRF secondary to COVID PNA 1. AHRF 2/2 COVID 19: Improved on room air, no longer requiring oxygen, no white count, remains afebrile, lovenox 40mg Q, dexamethasone 6mg for 10 days, Remdesivir 100mg total 4 days. Robitussin codeine for wet cough. Levaquin for previously noted worsening pneumonia infiltrates on chest X-ray from admission. 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 Hypokalemia: 3.1 today given 40 meq PO, will recheck level at 15:00 today. 3. PMHx: HTN, HLD, PAUL on CPAP, h/o TIA: continue with home meds <Gely Gunter - Last Filed: 03/13/20 13:03> - Patient Data Vitals - Most Recent: Last Vital Signs Temp 36.4 C 03/08/20 11:19 Pulse 63 03/08/20 11:19 Resp 18 03/08/20 11:19 BP 119/70 03/08/20 11:19 Pulse Ox 93 L 03/08/20 11:19 Med Orders - Current: Current Medications Discontinued Medications Acetaminophen (Tylenol) 650 mg PO Q4H PRN PRN Reason: Pain (Mild 1-3)/fever Last Admin: 03/06/20 20:03 Dose: 650 mg Documented by: Albuterol/Ipratropium (Duoneb 3.0-0.5 Mg/3 Ml) 3 ml NEB ONETIME ONE Stop: 03/05/20 13:55 Last Admin: 03/05/20 15:14 Dose: 3 ml Documented by: Albuterol/Ipratropium (Combivent Respimat) 0 gm INH Q4H PRN PRN Reason: Dyspnea Aspirin (Aspirin) 81 mg PO DAILY [facility] Last Admin: 03/08/20 08:25 Dose: 81 mg Documented by: Dexamethasone (Decadron) 10 mg IVPUSH ONETIME ONE Stop: 03/05/20 13:55 Last Admin: 03/05/20 15:14 Dose: 10 mg Documented by: Dexamethasone (Dexamethasone) 6 mg PO DAILY [facility] Last Admin: 03/08/20 08:24 Dose: 6 mg Documented by: Enoxaparin Sodium (Lovenox) 40 mg SUBCUT Q24H [facility] Last Admin: 03/07/20 16:52 Dose: 40 mg Documented by: Guaifenesin/Codeine Phosphate (Robitussin Ac) 5 ml PO Q4H PRN PRN Reason: Cough Last Admin: 03/06/20 10:01 Dose: 5 ml Documented by: Guaifenesin/Codeine Phosphate (Robitussin Ac) 5 ml PO Q4H PRN PRN Reason: Cough Last Admin: 03/07/20 18:18 Dose: 5 ml Documented by: Hydrochlorothiazide (Hydrochlorothiazide) 25 mg PO DAILY [facility] Last Admin: 03/08/20 08:24 Dose: 25 mg Documented by: Piperacillin Sod/Tazobactam (Sod 4.5 gm/ Sodium Chloride) 100 mls @ 100 mls/hr IV ONETIME ONE Stop: 03/05/20 16:40 Last Admin: 03/05/20 17:56 Dose: 100 mls/hr Documented by: Lactated Ringer's (Ringers, Lactated) 1,000 mls @ 125 mls/hr IV ASDIRECTED [facility] Stop: 03/06/20 05:00 Last Admin: 03/05/20 23:05 Dose: 125 mls/hr Documented by: Pantoprazole Sodium 40 mg/ (Sodium Chloride) 10 mls @ 300 mls/hr IV DAILY ONE Stop: 03/05/20 16:56 Last Admin: 03/05/20 17:43 Dose: 300 mls/hr Documented by: Remdesivir 200 mg/ Sodium (Chloride) 250 mls @ 250 mls/hr IV ONETIME ONE Stop: 03/05/20 17:00 Last Admin: 03/05/20 20:16 Dose: 250 mls/hr Documented by: Remdesivir 100 mg/ Sodium (Chloride) 100 mls @ 100 mls/hr IV Q24H [facility] Stop: 03/09/20 09:59 Last Admin: 03/08/20 09:58 Dose: 100 mls/hr Documented by: Piperacillin Sod/Tazobactam (Sod 3.375 gm/ Sodium Chloride) 50 mls @ 100 mls/hr IV Q8H [facility] Last Admin: 03/06/20 09:51 Dose: 100 mls/hr Documented by: Sodium Chloride (Normal Saline) Confirm Administered Dose 100 mls @ as directed .ROUTE .STK-MED ONE Stop: 03/05/20 17:41 Last Admin: 03/05/20 17:44 Dose: Not Given Documented by: Sodium Chloride (Normal Saline) Confirm Administered Dose 100 mls @ as directed .ROUTE .STK-MED ONE Stop: 03/05/20 17:53 Last Admin: 03/05/20 17:58 Dose: Not Given Documented by: Levofloxacin/Dextrose 750 mg/ (Premix) 150 mls @ 100 mls/hr IV Q24H [facility] Last Admin: 03/08/20 11:11 Dose: 100 mls/hr Documented by: Lorazepam (Ativan) 1 mg PO BEDTIME PRN PRN Reason: Insomnia Last Admin: 03/07/20 18:17 Dose: 1 mg Documented by: Losartan Potassium (Cozaar) 100 mg PO DAILY [facility] Last Admin: 03/08/20 08:25 Dose: 100 mg Documented by: Multivitamins/Minerals/Vitamin C (Tab-A-Bridget) 1 tab PO DAILY [facility] Last Admin: 03/08/20 08:24 Dose: 1 tab Documented by: Ondansetron HCl (Zofran) 4 mg IVPUSH ONETIME ONE Stop: 03/05/20 13:55 Last Admin: 03/05/20 15:14 Dose: 4 mg Documented by: Ondansetron HCl (Zofran) 4 mg IVPUSH Q4H PRN PRN Reason: Nausea/Vomiting Piperacillin Sod/Tazobactam Sod (Piperacil-Tazobact) Confirm Administered Dose 4.5 gm .ROUTE .STK-MED ONE Stop: 03/05/20 17:39 Last Admin: 03/05/20 17:41 Dose: Not Given Documented by: Piperacillin Sod/Tazobactam Sod (Piperacil-Tazobact) Confirm Administered Dose 4.5 gm .ROUTE .STK-MED ONE Stop: 03/05/20 17:53 Last Admin: 03/05/20 17:58 Dose: Not Given Documented by: Potassium Chloride (Klor-Con M20) 20 meq PO ONETIME ONE Stop: 03/05/20 16:55 Last Admin: 03/05/20 17:43 Dose: 20 meq Documented by: Potassium Chloride (Klor-Con M20) 40 meq PO ONETIME ONE Stop: 03/07/20 10:29 Last Admin: 03/07/20 11:07 Dose: 40 meq Documented by: Potassium Chloride (Klor-Con M20) 40 meq PO ONETIME ONE Stop: 03/07/20 17:23 Last Admin: 03/07/20 18:26 Dose: Not Given Documented by: Potassium Chloride (Klor-Con M20) 40 meq PO ONETIME ONE Stop: 03/07/20 17:47 Last Admin: 03/07/20 18:07 Dose: 40 meq Documented by: Rosuvastatin Calcium (Crestor) 10 mg PO BEDTIME [facility] Last Admin: 03/07/20 20:46 Dose: Not Given Documented by: Sodium Chloride (Saline Flush) 10 ml FLUSH ASDIRECTED PRN PRN Reason: Keep Vein Open Last Admin: 03/05/20 15:14 Dose: 10 ml Documented by: Sodium Chloride (Saline Flush) 2.5 ml FLUSH ASDIRECTED PRN PRN Reason: Keep Vein Open Last Admin: 03/05/20 15:14 Dose: 2.5 ml Documented by: Tamsulosin HCl (Flomax) 0.4 mg PO DAILY [facility] Last Admin: 03/08/20 08:25 Dose: 0.4 mg Documented by: Venlafaxine HCl (Effexor Xr) 75 mg PO DAILY [facility] Last Admin: 03/08/20 08:24 Dose: 75 mg Documented by: - Problem List & Annotations (1) Hypoxia SNOMED Code(s): 403287069 Code(s): R09.02 - HYPOXEMIA Status: Acute (2) COVID-19 SNOMED Code(s): 901302118 Code(s): U07.1 - COVID-19 Status: Acute (3) Transient ischemic attack (TIA) SNOMED Code(s): 506684708 Code(s): G45.9 - TRANSIENT CEREBRAL ISCHEMIC ATTACK, UNSPECIFIED Status: Acute (4) Dyslipidemia SNOMED Code(s): 266260089 Code(s): E78.5 - HYPERLIPIDEMIA, UNSPECIFIED Status: Chronic (5) HTN (hypertension) SNOMED Code(s): 45504872 Code(s): I10 - ESSENTIAL (PRIMARY) HYPERTENSION Status: Chronic Qualifiers: Hypertension type: essential hypertension Qualified Code(s): I10 - Essential (primary) hypertension - Plan Plan:: I have seen and evaluated the patient and agree with the residents note unless specified in my note
[2020-03-07] MEDS: Aspirin 81 MG Tab.Chew PO SCH (11:11)
[2020-03-07] MEDS: Dexamethasone 4 MG Tab PO SCH (11:12)
[2020-03-07] MEDS: Hydrochlorothiazide 25 MG Tab PO SCH (11:12)
[2020-03-07] MEDS: Tamsulosin 0.4 MG Cap.ER PO SCH (11:13)
[2020-03-07] MEDS: Losartan 50 MG Tab PO SCH (11:13)
[2020-03-07] MEDS: Venlafaxine 75 MG Cap.ER PO SCH (11:14)
[2020-03-07] MEDS: Multivitamin Tab PO SCH (11:14)
[2020-03-07] MEDS: Codeine/guaiFENesin 10-100 MG/5 ML Syrup 5 ML Cup PO PRN ×2 (12:48→18:18)
[2020-03-07] MEDS: Enoxaparin 40 MG/0.4 ML Syringe SUBCUT SCH (16:52)
[2020-03-07] MEDS: LORazepam 1 MG Tab PO PRN (18:17)
[2020-03-07] MEDS: Rosuvastatin 10 MG Tab PO SCH ×2 (18:18→20:46)
[2020-03-08 07:20] LABS: BLOOD UREA NITROGEN,BUN 27 mg/dL (7.0-18.0); CHLORIDE,CL 103 mmol/L (98-107); GLUCOSE RANDOM 102 mg/dL (74-106); POTASSIUM,K 3.5 mmol/L (3.5-5.1); SODIUM,NA 138 mmol/L (136-148)
[2020-03-08] MEDS: Hydrochlorothiazide 25 MG Tab PO SCH (08:24)
[2020-03-08] MEDS: Venlafaxine 75 MG Cap.ER PO SCH (08:24)
[2020-03-08] MEDS: Dexamethasone 4 MG Tab PO SCH (08:24)
[2020-03-08] MEDS: Multivitamin Tab PO SCH (08:24)
[2020-03-08] MEDS: Losartan 50 MG Tab PO SCH (08:25)
[2020-03-08] MEDS: Tamsulosin 0.4 MG Cap.ER PO SCH (08:25)
[2020-03-08] MEDS: Aspirin 81 MG Tab.Chew PO SCH (08:25)
[2020-03-08] MEDS: REMDESIVIR 100 MG in Sodium Chloride 0.9% 100 ML IV SCH (09:58)
--- NOTE | 2020-03-08 11:01 | PCM.DCSUM1 ---
<Jenny Mullen - Last Filed: 03/08/20 11:10> Discharge Summary - Hospital Course Brief History: Patient is 64-year-old male with a previous diagnosis of Covid, I saw him yesterday for shortness of breath and cough. His work-up at that time was reassuring and he was not hypoxic. Chest x-ray showed possible worsening pneumonia. I gave him a dose of Rocephin along with oral azithromycin. Patient comes back today saying that he does not feel any better, concerned about lack of oxygen at home and feeling fatigued. Denies chest pain. Denies any acute or abrupt worsening of symptoms, just states that generally does not feel like he is improving at home. - Discharge Data Discharge Date: 03/08/20 Discharge Disposition: Home, Self-Care 01 Condition: Good - Referral to Home Health Primary Care Physician: Juanito Funes MD - Discharge Diagnosis/Problem(s) (1) Acute hypoxemic respiratory failure due to COVID-19 SNOMED Code(s): 984868228 ICD Code: U07.1 - COVID-19; J96.01 - ACUTE RESPIRATORY FAILURE WITH HYPOXIA Status: Acute - Patient Summary/Data Hospital Course: Pt was admitted for COVID 19 associated Acute hypoxic Respiratory Failure. Was put on supplemental oxygen, started on Remdesivir and dexamethasone, with Levaquin for antibiotics. Pt was weaned to room air, has been feeling better. Was kept an additional night due to Post Covid syndrome associated weakness and shakiness. Since he is tolerating a PO diet and able to breath R.A comfortably with sats 93% on R.A. Will send home with Levaquin 750mg daily for 9 more days and Dexamthasone 6mg for 8 additional days to complete a total 10 day course. - Patient Instructions Diet: Heart Healthy Diet Activity: As Tolerated Notify Provider of: Fever, Increased Pain Other/Special Instructions: Please return to the hospital in the event you develop s.o.b, pchest pain, worsening cough, light headedness or difficulty breathing. - Discharge Plan *PRESCRIPTION DRUG MONITORING PROGRAM REVIEWED*: Not Applicable *COPY OF PRESCRIPTION DRUG MONITORING REPORT IN PATIENT MINNIE: Not Applicable Prescriptions/Med Rec: Albuterol/Ipratropium [Combivent Respimat] 1 inh INH Q4H PRN 30 Days #1 inhaler PRN Reason: Dyspnea dexAMETHasone [Dexamethasone] 6 mg PO DAILY 7 Days #7 tablet levoFLOXacin [Levaquin] 750 mg PO DAILY 9 Days #9 tab Codeine/guaiFENesin [Robitussin AC] 5 ml PO Q4H PRN 14 Days #1 cup PRN Reason: Cough Home Medications: Home Meds Venlafaxine [Effexor] 75 mg PO DAILY 08/16/14 [History] Losartan Potassium 100 mg PO DAILY 05/21/19 [History] Tamsulosin HCl 0.4 mg PO DAILY 05/21/19 [History] hydroCHLOROthiazide [Hydrochlorothiazide] 25 mg PO DAILY 05/21/19 [History] Aspirin 81 mg PO DAILY #30 tab.chew 05/22/19 [Rx] Rosuvastatin [Crestor] 10 mg PO BEDTIME #30 tablet 05/22/19 [Rx] Albuterol/Ipratropium [Combivent Respimat] 1 inh INH Q4H PRN 30 Days #1 inhaler 03/08/20 [Rx] Codeine/guaiFENesin [Robitussin AC] 5 ml PO Q4H PRN 14 Days #1 cup 03/08/20 [Rx] Multivitamins [Tab-A-Bridget] 1 tab PO DAILY tablet 03/08/20 [Rx] dexAMETHasone [Dexamethasone] 6 mg PO DAILY 7 Days #7 tablet 03/08/20 [Rx] levoFLOXacin [Levaquin] 750 mg PO DAILY 9 Days #9 tab 03/08/20 [Rx] Oxygen Therapy Mode: Room Air Patient Handouts: Shortness of Breath, Adult, [id number], COVID-19: How to Protect Yourself and Others - CDC, Levofloxacin tablets, Dexamethasone tablets Forms: ED Department Discharge Referrals: Beronica Olvera NP [Nurse Practitioner] - 03/20/20 2:30 pm (Please arrive 15mins early, bring ID, insurance information and own mask.) - Discharge Summary/Plan Comment DC Time >30 min.: No - Patient Data Vitals - Most Recent: Last Vital Signs Temp 97.4 F 03/08/20 08:22 Pulse 64 03/08/20 08:22 Resp 18 03/08/20 08:22 BP 117/79 03/08/20 08:25 Pulse Ox 92 L 03/08/20 08:22 Weight - Most Recent: 115.212 kg I&O - Last 24 hours: Intake & Output 03/07/20 03/08/20 03/08/20 22:59 06:59 14:59 Intake Total 850 700 Balance 850 700 Lab Results - Last 24 hrs: Laboratory Results - last 24 hr 03/07/20 03/07/20 03/08/20 Range/Units 06:23 14:56 06:35 WBC 4.33 (4.0-11.0) K/uL RBC 5.52 (4.50-5.90) M/uL Hgb 16.1 (13.0-17.0) g/dL Hct 47.7 (38.0-50.0) % MCV 86.4 (80.0-98.0) fL MCH 29.2 (27.0-32.0) pg MCHC 33.8 (31.0-37.0) g/dL RDW Std Deviation 44.4 (28.0-62.0) fl RDW Coeff of Komal 14 (11.0-15.0) % Plt Count 171 (150-400) K/uL MPV 10.60 (7.40-12.00) fL Add Manual Diff YES Neutrophils % (Manual) 45 L (48.0-80.0) % Band Neutrophils % 2 % Lymphocytes % (Manual) 28 (16.0-40.0) % Monocytes % (Manual) 24 H (0.0-15.0) % Myelocytes % 1 % Nucleated RBC % 0.0 /100WBC Absolute Seg Neuts 1.9 (1.4-5.7) Band Neutrophils # 0.1 Lymphocytes # (Manual) 1.2 (0.6-2.4) Monocytes # (Manual) 1.0 H (0.0-0.8) Absolute Myelocytes 0 Nucleated RBCs # 0 K/uL Sodium (136-148) mmol/L Potassium 3.4 L (3.5-5.1) mmol/L Chloride (98-107) mmol/L Carbon Dioxide (21.0-32.0) mmol/L BUN (7.0-18.0) mg/dL Creatinine (0.8-1.3) mg/dL Est Cr Clr Drug Dosing mL/min Estimated GFR (MDRD) ml/min Glucose (74-106) mg/dL Calcium (8.5-10.1) mg/dL Magnesium 2.1 (1.8-2.4) mg/dL Total Bilirubin (0.2-1.0) mg/dL AST (15-37) IU/L ALT (14-63) IU/L Alkaline Phosphatase (46-116) U/L Total Protein (6.4-8.2) g/dL Albumin (3.4-5.0) g/dL Globulin (2.6-4.0) g/dL Albumin/Globulin Ratio (0.9-1.6) 03/08/20 Range/Units 06:35 WBC (4.0-11.0) K/uL RBC (4.50-5.90) M/uL Hgb (13.0-17.0) g/dL Hct (38.0-50.0) % MCV (80.0-98.0) fL MCH (27.0-32.0) pg MCHC (31.0-37.0) g/dL RDW Std Deviation (28.0-62.0) fl RDW Coeff of Komal (11.0-15.0) % Plt Count (150-400) K/uL MPV (7.40-12.00) fL Add Manual Diff Neutrophils % (Manual) (48.0-80.0) % Band Neutrophils % % Lymphocytes % (Manual) (16.0-40.0) % Monocytes % (Manual) (0.0-15.0) % Myelocytes % % Nucleated RBC % /100WBC Absolute Seg Neuts (1.4-5.7) Band Neutrophils # Lymphocytes # (Manual) (0.6-2.4) Monocytes # (Manual) (0.0-0.8) Absolute Myelocytes Nucleated RBCs # K/uL Sodium 138 (136-148) mmol/L Potassium 3.5 (3.5-5.1) mmol/L Chloride 103 (98-107) mmol/L Carbon Dioxide 23.0 (21.0-32.0) mmol/L BUN 27 H (7.0-18.0) mg/dL Creatinine 1.2 (0.8-1.3) mg/dL Est Cr Clr Drug Dosing 55.38 mL/min Estimated GFR (MDRD) > 60.0 ml/min Glucose 102 (74-106) mg/dL Calcium 9.0 (8.5-10.1) mg/dL Magnesium (1.8-2.4) mg/dL Total Bilirubin 0.6 (0.2-1.0) mg/dL AST 41 H (15-37) IU/L ALT 59 (14-63) IU/L Alkaline Phosphatase 44 L (46-116) U/L Total Protein 6.6 (6.4-8.2) g/dL Albumin 3.4 (3.4-5.0) g/dL Globulin 3.2 (2.6-4.0) g/dL Albumin/Globulin Ratio 1.1 (0.9-1.6) Med Orders - Current: Current Medications Acetaminophen (Tylenol) 650 mg PO Q4H PRN PRN Reason: Pain (Mild 1-3)/fever Last Admin: 03/06/20 20:03 Dose: 650 mg Documented by: Albuterol/Ipratropium (Combivent Respimat) 0 gm INH Q4H PRN PRN Reason: Dyspnea Aspirin (Aspirin) 81 mg PO DAILY [facility] Last Admin: 03/08/20 08:25 Dose: 81 mg Documented by: Dexamethasone (Dexamethasone) 6 mg PO DAILY [facility] Last Admin: 03/08/20 08:24 Dose: 6 mg Documented by: Enoxaparin Sodium (Lovenox) 40 mg SUBCUT Q24H [facility] Last Admin: 03/07/20 16:52 Dose: 40 mg Documented by: Guaifenesin/Codeine Phosphate (Robitussin Ac) 5 ml PO Q4H PRN PRN Reason: Cough Last Admin: 03/07/20 18:18 Dose: 5 ml Documented by: Hydrochlorothiazide (Hydrochlorothiazide) 25 mg PO DAILY [facility] Last Admin: 03/08/20 08:24 Dose: 25 mg Documented by: Remdesivir 100 mg/ Sodium (Chloride) 100 mls @ 100 mls/hr IV Q24H [facility] Stop: 03/09/20 09:59 Last Admin: 03/08/20 09:58 Dose: 100 mls/hr Documented by: Levofloxacin/Dextrose 750 mg/ (Premix) 150 mls @ 100 mls/hr IV Q24H [facility] Last Admin: 03/07/20 11:07 Dose: 100 mls/hr Documented by: Lorazepam (Ativan) 1 mg PO BEDTIME PRN PRN Reason: Insomnia Last Admin: 03/07/20 18:17 Dose: 1 mg Documented by: Losartan Potassium (Cozaar) 100 mg PO DAILY [facility] Last Admin: 03/08/20 08:25 Dose: 100 mg Documented by: Multivitamins/Minerals/Vitamin C (Tab-A-Bridget) 1 tab PO DAILY [facility] Last Admin: 03/08/20 08:24 Dose: 1 tab Documented by: Ondansetron HCl (Zofran) 4 mg IVPUSH Q4H PRN PRN Reason: Nausea/Vomiting Rosuvastatin Calcium (Crestor) 10 mg PO BEDTIME [facility] Last Admin: 03/07/20 20:46 Dose: Not Given Documented by: Sodium Chloride (Saline Flush) 10 ml FLUSH ASDIRECTED PRN PRN Reason: Keep Vein Open Last Admin: 03/05/20 15:14 Dose: 10 ml Documented by: Sodium Chloride (Saline Flush) 2.5 ml FLUSH ASDIRECTED PRN PRN Reason: Keep Vein Open Last Admin: 03/05/20 15:14 Dose: 2.5 ml Documented by: Tamsulosin HCl (Flomax) 0.4 mg PO DAILY [facility] Last Admin: 03/08/20 08:25 Dose: 0.4 mg Documented by: Venlafaxine HCl (Effexor Xr) 75 mg PO DAILY [facility] Last Admin: 03/08/20 08:24 Dose: 75 mg Documented by: Discontinued Medications Albuterol/Ipratropium (Duoneb 3.0-0.5 Mg/3 Ml) 3 ml NEB ONETIME ONE Stop: 03/05/20 13:55 Last Admin: 03/05/20 15:14 Dose: 3 ml Documented by: Dexamethasone (Decadron) 10 mg IVPUSH ONETIME ONE Stop: 03/05/20 13:55 Last Admin: 03/05/20 15:14 Dose: 10 mg Documented by: Guaifenesin/Codeine Phosphate (Robitussin Ac) 5 ml PO Q4H PRN PRN Reason: Cough Last Admin: 03/06/20 10:01 Dose: 5 ml Documented by: Piperacillin Sod/Tazobactam (Sod 4.5 gm/ Sodium Chloride) 100 mls @ 100 mls/hr IV ONETIME ONE Stop: 03/05/20 16:40 Last Admin: 03/05/20 17:56 Dose: 100 mls/hr Documented by: Lactated Ringer's (Ringers, Lactated) 1,000 mls @ 125 mls/hr IV ASDIRECTED [facility] Stop: 03/06/20 05:00 Last Admin: 03/05/20 23:05 Dose: 125 mls/hr Documented by: Pantoprazole Sodium 40 mg/ (Sodium Chloride) 10 mls @ 300 mls/hr IV DAILY ONE Stop: 03/05/20 16:56 Last Admin: 03/05/20 17:43 Dose: 300 mls/hr Documented by: Remdesivir 200 mg/ Sodium (Chloride) 250 mls @ 250 mls/hr IV ONETIME ONE Stop: 03/05/20 17:00 Last Admin: 03/05/20 20:16 Dose: 250 mls/hr Documented by: Piperacillin Sod/Tazobactam (Sod 3.375 gm/ Sodium Chloride) 50 mls @ 100 mls/hr IV Q8H [facility] Last Admin: 03/06/20 09:51 Dose: 100 mls/hr Documented by: Sodium Chloride (Normal Saline) Confirm Administered Dose 100 mls @ as directed .ROUTE .STK-MED ONE Stop: 03/05/20 17:41 Last Admin: 03/05/20 17:44 Dose: Not Given Documented by: Sodium Chloride (Normal Saline) Confirm Administered Dose 100 mls @ as directed .ROUTE .STK-MED ONE Stop: 03/05/20 17:53 Last Admin: 03/05/20 17:58 Dose: Not Given Documented by: Ondansetron HCl (Zofran) 4 mg IVPUSH ONETIME ONE Stop: 03/05/20 13:55 Last Admin: 03/05/20 15:14 Dose: 4 mg Documented by: Piperacillin Sod/Tazobactam Sod (Piperacil-Tazobact) Confirm Administered Dose 4.5 gm .ROUTE .STK-MED ONE Stop: 03/05/20 17:39 Last Admin: 03/05/20 17:41 Dose: Not Given Documented by: Piperacillin Sod/Tazobactam Sod (Piperacil-Tazobact) Confirm Administered Dose 4.5 gm .ROUTE .STK-MED ONE Stop: 03/05/20 17:53 Last Admin: 03/05/20 17:58 Dose: Not Given Documented by: Potassium Chloride (Klor-Con M20) 20 meq PO ONETIME ONE Stop: 03/05/20 16:55 Last Admin: 03/05/20 17:43 Dose: 20 meq Documented by: Potassium Chloride (Klor-Con M20) 40 meq PO ONETIME ONE Stop: 03/07/20 10:29 Last Admin: 03/07/20 11:07 Dose: 40 meq Documented by: Potassium Chloride (Klor-Con M20) 40 meq PO ONETIME ONE Stop: 03/07/20 17:23 Last Admin: 03/07/20 18:26 Dose: Not Given Documented by: Potassium Chloride (Klor-Con M20) 40 meq PO ONETIME ONE Stop: 03/07/20 17:47 Last Admin: 03/07/20 18:07 Dose: 40 meq Documented by: <Gely Gunter - Last Filed: 03/13/20 12:44> Discharge Summary - Hospital Course HPI Initial Comments: I have seen and evaluated the patient and agree with the residents note unless specified in my note - Referral to Home Health Primary Care Physician: Juanito Funes MD - Discharge Diagnosis/Problem(s) (1) Hypoxia SNOMED Code(s): 359233806 ICD Code: R09.02 - HYPOXEMIA Status: Acute (2) COVID-19 SNOMED Code(s): 671445944 ICD Code: U07.1 - COVID-19 Status: Acute (3) Transient ischemic attack (TIA) SNOMED Code(s): 758205883 ICD Code: G45.9 - TRANSIENT CEREBRAL ISCHEMIC ATTACK, UNSPECIFIED Status: Acute (4) Dyslipidemia SNOMED Code(s): 240598795 ICD Code: E78.5 - HYPERLIPIDEMIA, UNSPECIFIED Status: Chronic (5) HTN (hypertension) SNOMED Code(s): 10330092 ICD Code: I10 - ESSENTIAL (PRIMARY) HYPERTENSION Status: Chronic Qualifiers: Hypertension type: essential hypertension Qualified Code(s): I10 - Essential (primary) hypertension - Patient Data Vitals - Most Recent: Last Vital Signs Temp 36.4 C 03/08/20 11:19 Pulse 63 03/08/20 11:19 Resp 18 03/08/20 11:19 BP 119/70 03/08/20 11:19 Pulse Ox 93 L 03/08/20 11:19 Med Orders - Current: Current Medications Discontinued Medications Acetaminophen (Tylenol) 650 mg PO Q4H PRN PRN Reason: Pain (Mild 1-3)/fever Last Admin: 03/06/20 20:03 Dose: 650 mg Documented by: Albuterol/Ipratropium (Duoneb 3.0-0.5 Mg/3 Ml) 3 ml NEB ONETIME ONE Stop: 03/05/20 13:55 Last Admin: 03/05/20 15:14 Dose: 3 ml Documented by: Albuterol/Ipratropium (Combivent Respimat) 0 gm INH Q4H PRN PRN Reason: Dyspnea Aspirin (Aspirin) 81 mg PO DAILY [facility] Last Admin: 03/08/20 08:25 Dose: 81 mg Documented by: Dexamethasone (Decadron) 10 mg IVPUSH ONETIME ONE Stop: 03/05/20 13:55 Last Admin: 03/05/20 15:14 Dose: 10 mg Documented by: Dexamethasone (Dexamethasone) 6 mg PO DAILY [facility] Last Admin: 03/08/20 08:24 Dose: 6 mg Documented by: Enoxaparin Sodium (Lovenox) 40 mg SUBCUT Q24H [facility] Last Admin: 03/07/20 16:52 Dose: 40 mg Documented by: Guaifenesin/Codeine Phosphate (Robitussin Ac) 5 ml PO Q4H PRN PRN Reason: Cough Last Admin: 03/06/20 10:01 Dose: 5 ml Documented by: Guaifenesin/Codeine Phosphate (Robitussin Ac) 5 ml PO Q4H PRN PRN Reason: Cough Last Admin: 03/07/20 18:18 Dose: 5 ml Documented by: Hydrochlorothiazide (Hydrochlorothiazide) 25 mg PO DAILY [facility] Last Admin: 03/08/20 08:24 Dose: 25 mg Documented by: Piperacillin Sod/Tazobactam (Sod 4.5 gm/ Sodium Chloride) 100 mls @ 100 mls/hr IV ONETIME ONE Stop: 03/05/20 16:40 Last Admin: 03/05/20 17:56 Dose: 100 mls/hr Documented by: Lactated Ringer's (Ringers, Lactated) 1,000 mls @ 125 mls/hr IV ASDIRECTED [facility] Stop: 03/06/20 05:00 Last Admin: 03/05/20 23:05 Dose: 125 mls/hr Documented by: Pantoprazole Sodium 40 mg/ (Sodium Chloride) 10 mls @ 300 mls/hr IV DAILY ONE Stop: 03/05/20 16:56 Last Admin: 03/05/20 17:43 Dose: 300 mls/hr Documented by: Remdesivir 200 mg/ Sodium (Chloride) 250 mls @ 250 mls/hr IV ONETIME ONE Stop: 03/05/20 17:00 Last Admin: 03/05/20 20:16 Dose: 250 mls/hr Documented by: Remdesivir 100 mg/ Sodium (Chloride) 100 mls @ 100 mls/hr IV Q24H [facility] Stop: 03/09/20 09:59 Last Admin: 03/08/20 09:58 Dose: 100 mls/hr Documented by: Piperacillin Sod/Tazobactam (Sod 3.375 gm/ Sodium Chloride) 50 mls @ 100 mls/hr IV Q8H [facility] Last Admin: 03/06/20 09:51 Dose: 100 mls/hr Documented by: Sodium Chloride (Normal Saline) Confirm Administered Dose 100 mls @ as directed .ROUTE .STK-MED ONE Stop: 03/05/20 17:41 Last Admin: 03/05/20 17:44 Dose: Not Given Documented by: Sodium Chloride (Normal Saline) Confirm Administered Dose 100 mls @ as directed .ROUTE .STK-MED ONE Stop: 03/05/20 17:53 Last Admin: 03/05/20 17:58 Dose: Not Given Documented by: Levofloxacin/Dextrose 750 mg/ (Premix) 150 mls @ 100 mls/hr IV Q24H [facility] Last Admin: 03/08/20 11:11 Dose: 100 mls/hr Documented by: Lorazepam (Ativan) 1 mg PO BEDTIME PRN PRN Reason: Insomnia Last Admin: 03/07/20 18:17 Dose: 1 mg Documented by: Losartan Potassium (Cozaar) 100 mg PO DAILY [facility] Last Admin: 03/08/20 08:25 Dose: 100 mg Documented by: Multivitamins/Minerals/Vitamin C (Tab-A-Bridget) 1 tab PO DAILY [facility] Last Admin: 03/08/20 08:24 Dose: 1 tab Documented by: Ondansetron HCl (Zofran) 4 mg IVPUSH ONETIME ONE Stop: 03/05/20 13:55 Last Admin: 03/05/20 15:14 Dose: 4 mg Documented by: Ondansetron HCl (Zofran) 4 mg IVPUSH Q4H PRN PRN Reason: Nausea/Vomiting Piperacillin Sod/Tazobactam Sod (Piperacil-Tazobact) Confirm Administered Dose 4.5 gm .ROUTE .STK-MED ONE Stop: 03/05/20 17:39 Last Admin: 03/05/20 17:41 Dose: Not Given Documented by: Piperacillin Sod/Tazobactam Sod (Piperacil-Tazobact) Confirm Administered Dose 4.5 gm .ROUTE .STK-MED ONE Stop: 03/05/20 17:53 Last Admin: 03/05/20 17:58 Dose: Not Given Documented by: Potassium Chloride (Klor-Con M20) 20 meq PO ONETIME ONE Stop: 03/05/20 16:55 Last Admin: 03/05/20 17:43 Dose: 20 meq Documented by: Potassium Chloride (Klor-Con M20) 40 meq PO ONETIME ONE Stop: 03/07/20 10:29 Last Admin: 03/07/20 11:07 Dose: 40 meq Documented by: Potassium Chloride (Klor-Con M20) 40 meq PO ONETIME ONE Stop: 03/07/20 17:23 Last Admin: 03/07/20 18:26 Dose: Not Given Documented by: Potassium Chloride (Klor-Con M20) 40 meq PO ONETIME ONE Stop: 03/07/20 17:47 Last Admin: 03/07/20 18:07 Dose: 40 meq Documented by: Rosuvastatin Calcium (Crestor) 10 mg PO BEDTIME [facility] Last Admin: 03/07/20 20:46 Dose: Not Given Documented by: Sodium Chloride (Saline Flush) 10 ml FLUSH ASDIRECTED PRN PRN Reason: Keep Vein Open Last Admin: 03/05/20 15:14 Dose: 10 ml Documented by: Sodium Chloride (Saline Flush) 2.5 ml FLUSH ASDIRECTED PRN PRN Reason: Keep Vein Open Last Admin: 03/05/20 15:14 Dose: 2.5 ml Documented by: Tamsulosin HCl (Flomax) 0.4 mg PO DAILY [facility] Last Admin: 03/08/20 08:25 Dose: 0.4 mg Documented by: Venlafaxine HCl (Effexor Xr) 75 mg PO DAILY [facility] Last Admin: 03/08/20 08:24 Dose: 75 mg Documented by:
[2020-03-08] MEDS: Levofloxacin/Dextrose 5%-Water 750 MG in Premix Bag 1 BAG IV SCH (11:11)
[2020-03-08 11:21] VITALS: BP 119/70; PULSE 63
== END 2020-03-08 12:25 | disposition home or self-care (01) | DRG 177 ==
LOC: MW.ED 13:43 → MW.MS 16:02 → OBSVTOIN 03-07 10:57
PROVIDERS: ADMIT Student in an Organized Health Care Education/Training Program; ATTEND Student in an Organized Health Care Education/Training Program
PROC: XW033E5 Introduction of Remdesivir Anti-infective into Peripheral Vein, Percutaneous Approach, New Technology Group 5 (ICD-10-PCS; principal; 2020-03-05)
DX: U07.1 COVID-19 (principal); J96.01 Acute respiratory failure with hypoxia; J18.9 Pneumonia, unspecified organism; J12.89 Other viral pneumonia; E87.1 Hypo-osmolality and hyponatremia; Z68.41 Body mass index [BMI] 40.0-44.9, adult; E87.6 Hypokalemia; G45.9 Transient cerebral ischemic attack, unspecified; Z86.73 Personal history of transient ischemic attack (TIA), and cerebral infarction without residual deficits; Z88.6 Allergy status to analgesic agent; G47.33 Obstructive sleep apnea (adult) (pediatric); I10 Essential (primary) hypertension; N40.0 Benign prostatic hyperplasia without lower urinary tract symptoms; H54.7 Unspecified visual loss; F32.9 Major depressive disorder, single episode, unspecified; E66.9 Obesity, unspecified; H91.90 Unspecified hearing loss, unspecified ear; M54.9 Dorsalgia, unspecified; E78.5 Hyperlipidemia, unspecified; Z86.010 Personal history of colon polyps; G89.29 Other chronic pain; Z96.659 Presence of unspecified artificial knee joint; Z98.890 Other specified postprocedural states; Z87.891 Personal history of nicotine dependence; Z88.5 Allergy status to narcotic agent; Z79.82 Long term (current) use of aspirin; Z79.899 Other long term (current) drug therapy
CPT/HCPCS: 36415 ×3; 71045; 80053 ×3; 81003; 83735 ×2; 84100; 84484; 85025 ×3; 96374; 96375; 99285; A9270 ×17; C9113; J1100; J1650 ×2; J1956; J2405; J2543 ×2; J7050 ×3; J7120; J8540; 84132; 93010; 96365; 96366; 96367; 96372; 99218; 99225; 99232; 99238; G0378; J7620-GY

== ENCOUNTER 2023-10-15 10:10 | Emergency (ER) | payer MEDICARE, OTHER ==
[2023-10-15] MEDS: Albuterol/Ipratropium 3.0-0.5 MG/3 ML Neb Soln NEB ONE (10:55)
[2023-10-15 13:30] VITALS: BP 179/93; PULSE 60
[2023-10-15 15:01] LABS: BASOPHILS ABSOLUTE AUTO 0.04 K/uL (0.00-0.20); BASOPHILS PERCENT AUTO 0.4 % (0.0-1.0); EOSINOPHILS ABSOLUTE AUTO 0.33 K/uL (0.00-0.45); EOSINOPHILS PERCENT AUTO 3.6 % (0.0-6.0); HEMATOCRIT 43.2 % (42.0-52.0); HEMOGLOBIN 14.6 g/dL (14.0-18.0); IMMATURE GRAN ABSOLUTE AUTO 0.05 K/uL (0.00-0.05); IMMATURE GRAN PERCENT AUTO 0.6 % (0.0-0.4); LYMPHOCYTES ABSOLUTE AUTO 1.67 K/uL (1.00-4.80); LYMPHOCYTES PERCENT AUTO 18.4 % (24.0-44.0); MEAN CORPUSCULAR HEMOGLOBIN 29.4 pg (28.0-32.0); MEAN CORPUSCULAR HGB CONC 33.8 g/dL (32.0-36.0); MEAN CORPUSCULAR VOLUME 86.9 fL (83.0-99.0); MEAN PLATELET VOLUME 9.3 fL (9.4-12.4); MONOCYTES ABSOLUTE AUTO 1.23 K/uL (0.00-0.80); MONOCYTES PERCENT AUTO 13.6 % (0.0-8.0); NEUTROPHILS ABSOLUTE AUTO 5.75 K/uL (1.80-7.70); NEUTROPHILS PERCENT AUTO 63.4 % (41.0-71.0); PLATELET COUNT,PLT 236 K/uL (150-400); RED BLOOD CELL COUNT 4.97 M/uL (4.52-5.90); WHITE BLOOD CELL COUNT,WBC 9.07 K/uL (3.9-11.3)
[2023-10-15 15:57] LABS: A/G RATIO 0.8 (0.9-1.6); ALANINE AMINOTRANSFERASE,ALT 35 IU/L (14-63); ALBUMIN 3.1 g/dL (3.4-5.0); ALKALINE PHOSPHATASE 55 U/L (46-116); ASPARTATE AMNIOTRANSFERASE,AST 27 IU/L (15-37); BILIRUBIN TOTAL 0.7 mg/dL (0.2-1.0); BLOOD UREA NITROGEN,BUN 13 mg/dL (7.0-18.0); CALCIUM 9.1 mg/dL (8.5-10.1); CARBON DIOXIDE,CO2 27.2 mmol/L (21.0-32.0); CHLORIDE,CL 104 mmol/L (98-107); EST CRCL DRUG DOSING (CG) 60.65 mL/min; ESTIMATED GFR 81 mL/min (>60); GLUCOSE RANDOM 98 mg/dL (74-106); POTASSIUM,K 3.2 mmol/L (3.5-5.1); PRO B-TYPE NATRIUR PEPT,BNPPRO < 5 pg/mL (0-125); SODIUM,NA 141 mmol/L (136-148)
== END 2023-10-15 13:22 | disposition home or self-care (01) ==
LOC: MW.ED 10:10
DX: J18.9 Pneumonia, unspecified organism (principal); I10 Essential (primary) hypertension; Z88.5 Allergy status to narcotic agent; Z79.899 Other long term (current) drug therapy; Z79.82 Long term (current) use of aspirin; Z79.51 Long term (current) use of inhaled steroids
CPT/HCPCS: 36415; 71046; 71046-26; 80053; 83880; 84484; 85025; 93005; 94640; 99283; 99285; J7620-GY